=== PATIENT | female | born 2000 | race Caucasian/White ===

== ENCOUNTER 2022-05-22 16:54 | Emergency (ER) | payer OTHER, SELFPAY ==
[2022-05-22 17:09] VITALS: BP 132/81; PULSE 90; RESP 16; TEMP 36.7; O2SAT 98; BMI 23.0
--- NOTE | 2022-05-22 19:04 | ED.HEATRA ---
HPI - Head Injury <EDSON Machado Last Filed: 05/22/22 19:12> General Chief complaint: Head Injury Stated complaint: fell and hit head on cement Time Seen by Provider: 05/22/22 18:52 Source: patient Mode of arrival: Ambulatory History of Present Illness HPI Narrative: This is a 22-year-old female presents to the emergency department due to falling backwards and hitting the back of her head on the cement. Patient states that she did not lose consciousness but does state that she felt ?dazed? and was able to see but could hear everything. This happened approximately 5 hours ago. Patient states that ?the right side of my face felt funny?. Denies any slurred speech, unilateral weakness, nausea, vomiting, dizziness, or any other concerning signs or symptoms. Related Data Allergies Allergy/AdvReac Type Severity Reaction Status Date / Time cefprozil [From Cefzil] Allergy Verified 05/22/22 17:13 Review of Systems <Luis Pedro PA-C - Last Filed: 05/22/22 19:12> Review of Systems Narrative: GENERAL: Denies chills, fatigue, malaise, fever, sweats. HEENT: Reports head pain, Denies sinus pain, ear pain, sore throat, difficulty swallowing, dizziness. RESPIRATORY: Denies dyspnea, cough, wheezing, hemoptysis, sputum. CARDIOVASCULAR: Denies chest pain, palpitations, orthopnea, edema, GASTROINTESTINAL: Denies nausea, vomiting, abdominal pain, diarrhea, constipation, melena. : Denies dysuria, frequency, incontinence, hematuria, urinary retention. MUSCULOSKELETAL: denies weakness, joint pain, or bony pain SKIN: Denies rash, skin lesions, or other NEUROLOGIC: Denies weakness, headache, numbness, change in speech, confusion, seizures, incoordination. PSYCHIATRIC: No concerning psychosocial issues. 12 point review of systems is negative except for those stated above Patient History <EDSON Machado Last Filed: 05/22/22 19:12> Substance Use Type: does not use Exam <EDSNO Machado Last Filed: 05/22/22 19:12> Narrative Exam Narrative: GENERAL: Well-developed patient, in mild distress. HEAD: Atraumatic. Normocephalic. EYES: Pupils equal round and reactive. Extraocular motions intact. No scleral icterus. No injection or drainage. ENT: Nose without bleeding, purulent drainage. Throat without erythema, tonsillar hypertrophy or exudate. Airway patent. NECK: Trachea midline. Non tender CARDIOVASCULAR: Regular rate and rhythm without murmurs, gallops, or rubs. RESPIRATORY: Clear to auscultation. Breath sounds equal bilaterally. No wheezes, rales, or rhonchi. GASTROINTESTINAL: Abdomen soft, non-tender, nondistended. EXTREMITIES: No edema or joint tenderness. BACK: Nontender without deformity or crepitance. No flank tenderness. NEURO: AOx3. Cranial nerves 2-12 intact. No focal weakness noted. SKIN: No rash or erythema of visible areas Initial Vital Signs Initial Vital Signs: Vital Signs Temperature 98.0 F 05/22/22 17:09 Pulse Rate 90 05/22/22 17:09 Respiratory Rate 16 05/22/22 17:09 Blood Pressure 132/81 05/22/22 17:09 Pulse Oximetry 98 05/22/22 17:09 Oxygen Delivery Method 05/22/22 17:09 <DO Ariel Dan Last Filed: 05/23/22 08:59> Initial Vital Signs Initial Vital Signs: Vital Signs Temperature 98.0 F 05/22/22 17:09 Pulse Rate 90 05/22/22 17:09 Respiratory Rate 16 05/22/22 17:09 Blood Pressure 132/81 05/22/22 17:09 Pulse Oximetry 98 05/22/22 17:09 Oxygen Delivery Method 05/22/22 17:09 Course <EDSON Machado Last Filed: 05/22/22 19:12> Vital Signs Vital signs: Vital Signs - 8 hr 05/22/22 17:09 Temperature 98.0 F Pulse Rate 90 Respiratory Rate 16 Blood Pressure 132/81 Pulse Oximetry 98 Oxygen Delivery Method Room Air <DO Ariel Dan Last Filed: 05/23/22 08:59> Vital Signs Vital signs: Vital Signs - 8 hr 05/22/22 17:09 Temperature 98.0 F Pulse Rate 90 Respiratory Rate 16 Blood Pressure 132/81 Pulse Oximetry 98 Oxygen Delivery Method Room Air MDM - Head Injury <EDSON Machado Last Filed: 05/22/22 19:12> MDM Narrative Medical decision making narrative: This is a 22-year-old female presents to the emergency department due to a head injury with questionable loss of consciousness. Patient does not take any blood thinners and is otherwise healthy. Description of her symptoms were low concern for any kind of intracranial bleed and patient had a completely normal neuro exam. Shared decision making was utilized and no CT head will be ordered. Suspect patient may have a mild concussion and concussion instructions given. Discharge Plan Departure Patient Disposition: Home Clinical Impression: Concussion Instructions: Concussion, DI for Closed Head Injury Activity Restrictions/Additional Instructions: Thank you for coming to the [facility] Emergency Department today. Based on your exam I do not think that we need a head CT at this time due to the high amount of radiation. I suspect that you have a concussion which she should treat using instructions given to you. Please return to the emergency department if you begin to develop any blurred vision, weakness on 1 side, trouble speaking, hearing, or swallowing, repeated vomiting, seizures, or any other concerning signs or symptoms. I hope you feel better soon. Visit Report Forms: Patient Portal/API <Nayla Rajan DO - Last Filed: 05/23/22 08:59> Cosign ED Attending Coswesleyature Attestation: I was immediately available in the department for consultation. Documentation has been reviewed. I agree with assessment and plan.
== END 2022-05-22 19:21 | disposition home or self-care (01) ==
PROVIDERS: Emergency Provider Physician Assistant Medical
DX: S06.0X0A Concussion without loss of consciousness, initial encounter (principal); W18.30XA Fall on same level, unspecified, initial encounter
CPT/HCPCS: 99281

== ENCOUNTER → 2022-10-20 11:09 | Outpatient (CLI) | payer OTHER, SELFPAY ==
--- NOTE | 2022-10-20 | DI.US.S_ITS ---
PROCEDURE: US PELVIC COMPLETE INDICATIONS: ABNORMAL PELVIC BLEEDING TECHNIQUE: Real-time scanning was performed of the pelvic organs, with image documentation. Additional endovaginal scanning was necessary due to incomplete visualization of the adnexal and endometrial structures by transabdominal scanning. COMPARISON: None. FINDINGS: Uterus: Uterus is anteverted and normal in size at 5.8 x 3.2 x 2.8 cm. The myometrium is homogeneous. Possible increased myometrial vascularity on Doppler images. The endometrium measures 2 mm combined thickness. No focal endometrial lesion or abnormal endometrial vascularity identified. Ovaries: The right ovary measures 2.5 x 1.8 x 1.2 cm, with a calculated ovarian volume of 3 cc. The left ovary measures 2.9 x 2.1 x 1.0 cm, with a calculated ovarian volume of 3 cc. The ovaries have a unremarkable sonographic appearance. Less than 12 follicles can be seen in each ovary. No adnexal masses are seen. Other: No pathologic free abdominal or pelvic fluid. IMPRESSION: No focal endometrial lesion or abnormal endometrial vascularity identified. Possible increase in myometrial vascularity on Doppler images. This is a nonspecific finding, can be seen in the setting of adenomyosis. If there is clinical suspicion for adenomyosis MRI of the pelvis may be helpful for further evaluation. We strive to produce accurate, complete, and clear reports of imaging services. To assist us in improving patient care, this report was composed using standard report templates and voice recognition software. Therefore, it may contain abnormal punctuation, insertions and/or omissions. Occasional wrong-word or sound-alike substitutions may occur. Though we review the report and make efforts to correct it, we do recommend that the report be read carefully in proper context to recognize any text inaccuracies. Dictated by: Rivera Sauceda M.D. on 10/20/2022 at 14:10 Approved by: Rivera Sauceda M.D. on 10/20/2022 at 14:15
== END ==
PROVIDERS: Referring Provider Student in an Organized Health Care Education/Training Program; Visit Provider Student in an Organized Health Care Education/Training Program
DX: N93.9 Abnormal uterine and vaginal bleeding, unspecified (principal)
CPT/HCPCS: 76830; 76856

== ENCOUNTER 2024-01-12 09:45 | Outpatient (RCR) | payer OTHER, SELFPAY ==
--- NOTE | 2023-08-11 13:20 | PT.OIE ---
Current Diagnoses Muscle weakness (generalized) (08/11/23) Lower abdominal pain, unspecified (08/11/23) Unspecified urinary incontinence (08/11/23) Visit Care Team Role Provider Type Vanesa Philip MD Attending Provider Non-Staff Family Provider Primary Care Provider Referring Provider Specialty: Medical Address: [address] [place] [address], [id number] Email: Physical Therapy Initial Evaluation PT-OP-A Visit Information Start: 08/07/23 17:58 Freq: Status: Active Protocol: Document 08/11/23 08:21 LRN (Rec: 08/11/23 09:46 LRN [id number]) Out-Patient Physical Therapy Visit Information Visit Information Visit Type Initial Evaluation Visit Start Time 08:21 Visit Stop Time 09:16 Total Visit Minutes 66 Visit Number 1 Evaluation Information Evaluation Date 08/11/23 Precautions Precautions Back pain, Pelvic congestion history. PT-OP-B Current Condition Start: 08/07/23 17:58 Freq: Status: Active Protocol: Document 08/11/23 08:21 LRN (Rec: 08/11/23 09:46 LRN [id number]) Current Condition History of Current Condition Onset Date 06/2023 Current Complaints Urinary leakage if holding too long or doing light lifting mvmt, sneezing. History of Current Condition Sudden onset of urinary leakage, thought it was related to PF congestion, but was told there was no association. Pt has history of frequent UTI's until being given antibiotics as needed. She has not had UTI's with use of antibiotics. Pt states she is waiting for surgery at for her PF congestion. Orginally from [place], has spouse. Prior Treatments and Tests Dye test for reason for urinary tract infection (? intravenour pylegram) -2 yrs ago. Dye test for pelvic congestion (?venogram). Developmental History Developmental History Pt reports: Has pelvic congestion and is waiting for surgery; UTI's frequent 1x/month until started taking antibiotics, has not had infections. States infections after intercourse if not showering when camping. Treatment Goals Patient/Caregiver Goals Pt goal is: to be able to not have urgency , to not have urinary leakage with urgency to not have urinary leakage with lifting and sneezing. 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 PT-OP-C Subjective Start: 08/07/23 17:58 Freq: Status: Active Protocol: Document 08/11/23 08:21 LRN (Rec: 08/11/23 09:46 LRN [id number]) Patient Questionnaires Pelvic Pain and Urgency/Frequency Patient Symptom Scale Pelvic Pain Score 24 OP-PT Pain Assessment Pain Assessment Grid Paper Pain Assessment Grid Completed Yes Location L low back Pain Location Details L Low back at level of L4-L5. Intensity 5 Scale Used Numeric (0 - 10) Description Aching Description- Other Pain range 3-5/10 Lower Abdomen Pain Location Details Across lower abdomen Intensity 8 Scale Used Numeric (0 - 10) Description Sharp Description- Other Can't move pain. Frequency Intermittent PT-OP-I Pelvic Floor Start: 08/07/23 17:58 Freq: Status: Active Protocol: Document 08/11/23 08:21 LRN (Rec: 08/11/23 09:46 LRN [id number]) Pelvic Floor Assessment Urine Pelvic Floor Surgery No Urinary Symptoms Urge Sensation,Dribbling After Urination,Pain Other Urinary Symptoms Swelling and pain in PF when having pelvic congestion. Leakage Size Small Leakage Cause Lifting,Sneeze,Urge Leaks Per Day 3 Voiding Frequency every hour Nocturia No pads at night. 3-4x urinating at night. Pads Used In 24 Hours 3 Urine Pad Type Panty Liner Bowel Bowel Surgery No Bowel Movement Frequency daily Zuni Stool Chart Type 1-7 3 Prolapse Cystocele Grade 2 Contraction Ability Voluntary Contraction Weak Voluntary Relaxation Moderate Manual Muscle Testing Left 2 Manual Muscle Testing Right 3 Manual Muscle Testing Anterior 2 Manual Muscle Testing Posterior 3 Muscle Endurance (Seconds) 2 Number of Quick Contractions In 10 6 Seconds Comments Pelvic Floor Comments Very dry tissue. Mild redness of external perineum around vagina. PT-OP-J Posture/Palpation/Skin Start: 08/07/23 17:58 Freq: Status: Active Protocol: Document 08/11/23 08:21 LRN (Rec: 08/11/23 09:46 LRN [id number]) Posture Evaluation Position Standing Head/C-Spine Posture Neutral Position L-Spine Posture Increased Lordosis Shoulder Posture (L) Elevated Pelvis Posture Anteriorly Tilted Weight Distribution Balanced Knee Posture (L) Genu Valgus,(R) Genu Valgus Comments Posture Comments Decreased thoracic curvature. L PSIS is posterior. PT-OP-K Range of Motion Start: 08/07/23 17:58 Freq: Status: Active Protocol: Document 08/11/23 08:21 LRN (Rec: 08/11/23 09:46 LRN [id number]) Lumbar Spine Range of Motion Lumbar Spine Active Degrees Testing Position Standing Flexion 95 Extension 30 Rotation Left 40 Rotation Right 40 Lateral Flexion Left 27 Lateral Flexion Right 27 Comments Trunk AROM: Flexion is 95 deg ?s with 65 deg?s hip flexion, Trunk extension is 30 deg?s with 0 deg?s hip extension. Hip Goniometric Range of Motion Hip Right Passive Testing Position Supine Internal Rotation 60 External Rotation 45 Left Passive Testing Position Supine Internal Rotation 50 External Rotation 50 PT-OP-M Strength Start: 08/07/23 17:58 Freq: Status: Active Protocol: Document 08/11/23 08:21 LRN (Rec: 08/11/23 09:46 LRN [id number]) Trunk Strength Trunk Manual Muscle Testing Core Stabilization Pt is not able to maintain core stability with MMT of LE' s. Hip Strength Hip Manual Muscle Testing Right Flexion (L2) 5 Normal Extension (S1) 3 Fair Abduction 4- Good- Adduction 3 Fair External Rotation 3+ Fair+ Internal Rotation 4 Good Left Flexion (L2) 5 Normal Extension (S1) 3 Fair Abduction 3 Fair Adduction 3 Fair External Rotation 5 Normal Internal Rotation 5 Normal PT-OP-Q Treatments Start: 08/07/23 17:58 Freq: Status: Active Protocol: Document 08/11/23 08:21 LRN (Rec: 08/11/23 09:46 LRN [id number]) Self-Care/Home Management Treatment Education Other Education Discussed results of evaluation, goals, and plan of care (POC). Pt agreeable to goals and POC. Discussed and educated pt in specifics for completion of Bladder Diary and I/S in tracking for 1 week. Discussed use of 2 different diaries for tracking of bladder for next 7 days. Activities Self-Care/Home Management Activities Issued & reviewed HEP: Naomi ex's and discussed exercise of Quick Flicks, Long Holds and Aggravators. PT-OP-T Assessment and Plan Start: 08/07/23 17:58 Freq: Status: Active Protocol: Document 08/11/23 08:21 LRN (Rec: 08/11/23 09:46 LRN [id number]) Physical Therapy Assessment Rehab Potential Rehabilitation Potential Good Evaluation Complexity Number of Personal Factors/Comorbidities 1-2 Number of Body Systems Impaired 4 or More Clinical Presentation at Evaluation Evolving Impairments Impairments Activity Tolerance,Pain, Posture,ROM,Soft Tissue Mobility,Strength,Transfers Goals Decreased PF strength & endurance Impairment Decreased PF strength (2-3/5) and endurance (2 sec hold) Short Term Goal (STG) Improve PF strength to 3/5 STG Duration 6 wks- 09/21/23 Intermediate Goal (LTG) Improve PF endurance to hold 10 secs before fatigue LTG Duration 12 wks-11/09/23 Three Impairment Stress urinary incontinence with lifting and sneezing. Short Term Goal (STG) Pt will be educated in core pressure management with transfers, ADLs, and exercise. STG Duration 3 wks-09/01/23 Intermediate Goal (LTG) Pt will be able to maintain urinary continence with lifting and sneezing. LTG Duration 12 wks-11/09/23 Two Impairment Urge urinary incontinence in the presence of a strong urge. Short Term Goal (STG) Pt will be educated in urge deference technique, proper fluid management (including hydration level norms) and bladder irritants. STG Duration 2 wks-08/21/23 Intermediate Goal (LTG) Pt will be able to maintain urinary continence in the presence of a strong urge. LTG Duration 12 wks-11/09/23 One Impairment Pt lacks an independent self care HEP. Short Term Goal (STG) Pt will be educated in vulvar/ perineal care & proper posturing in sit/stand. STG Duration 4 wks-09/11/23 Intermediate Goal (LTG) Pt will be independent in a self care HEP for PF/hip strengthening, hip ROM. LTG Duration 12 wks-11/09/23 Assessment Summary Assessment Pt is a 23 yo female who presents with mixed urinary incontinence with abdominal pain and a history of pelvic congestion. PUF score of 24 indicates 91% likelihood of + PST and interstitial cystitis contributing to her urinary leakage. Pt has weakness of her PF, core (L>R), hips (L>R ), and asymmetry of mobility of her hips (tightness L hip). She has guarding of her core due to abdominal pain that is believed to be due to her pelvic congestion. The pt demonstrates poor tissue health of her perineum and would recommend further assessment with possible use of estrogen creme (recommend Estrace if appropriate) to improve perineal health and recommend PT for her abdominal pain due to pelvic congestion . The pt will benefit from skilled physical therapy to work towards achieving the above stated goals. Physical Therapy Plan Frequency and Duration Frequency of Treatment 1x/Week Duration of treatment (weeks) 12 Plan of Care Start Date 08/11/23 Plan of Care End Date 11/09/23 Therapeutic Interventions Therapeutic Interventions Home Exercise Program,Joint Mobilizations,Manual Therapy, Patient/Caregiver Education, Self-Care/Home Management,Soft Tissue Mobilization,Taping, Therapeutic Activities, Therapeutic Exercises Modalities Biofeedback,Electric Stimulation Other Referrals/Consults Referrals/Consults Recommended Assessment for PF dryness, possible use of estrogen creme (Estrace) and PT for abdominal pain. Next Visit Focus/Plan Next Note Type Treatment Note Next Visit Plan Next: Review bladder diary, pt education in bladder retraining with urge deference technique, Vemg PF assessment in absence of UTI.. Ther ex: proper Kegel without use of substitute muscles, PF , hip, strengthening. Education: Eduction of intra- abdominal pressure, proper deep breathing, and proper breathing with transfers and body mechanics. Vulvar and perineal care, different pads and usage (urine vs menstrual) . Manual therapy: lower abominal MFR POC: Pt education, Manual therapy. ? Biofeedback with vaginal sensor. Therapeutic Exercises, Therapeutic Activities, Neuromuscular Reeducation.
--- NOTE | 2023-08-21 16:32 | PT.OTN ---
Current Diagnoses Muscle weakness (generalized) (08/21/23) Lower abdominal pain, unspecified (08/21/23) Unspecified urinary incontinence (08/21/23) Physical Therapy Treatment Note PT-OP-A Visit Information Start: 08/07/23 17:58 Freq: Status: Active Protocol: Document 08/21/23 11:30 LRN (Rec: 08/21/23 12:44 LRN [id number]) Out-Patient Physical Therapy Visit Information Visit Information Visit Type Treatment Note Visit Start Time 11:30 Visit Stop Time 12:20 Total Visit Minutes 50 Visit Number 2 Evaluation Information Evaluation Date 08/11/23 Precautions Precautions Back pain, Pelvic congestion history. PT-OP-B Current Condition Start: 08/07/23 17:58 Freq: Status: Active Protocol: Document 08/11/23 08:21 LRN (Rec: 08/11/23 09:46 LRN [id number]) Current Condition History of Current Condition Onset Date 06/2023 Current Complaints Urinary leakage if holding too long or doing light lifting mvmt, sneezing. History of Current Condition Sudden onset of urinary leakage, thought it was related to PF congestion, but was told there was no association. Pt has history of frequent UTI's until being given antibiotics as needed. She has not had UTI's with use of antibiotics. Pt states she is waiting for surgery at for her PF congestion. Orginally from [place], has spouse. Prior Treatments and Tests Dye test for reason for urinary tract infection (? intravenour pylegram) -2 yrs ago. Dye test for pelvic congestion (?venogram). Developmental History Developmental History Pt reports: Has pelvic congestion and is waiting for surgery; UTI's frequent 1x/month until started taking antibiotics, has not had infections. States infections after intercourse if not showering when camping. Treatment Goals Patient/Caregiver Goals Pt goal is: to be able to not have urgency , to not have urinary leakage with urgency to not have urinary leakage with lifting and sneezing. 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 PT-OP-C Subjective Start: 08/07/23 17:58 Freq: Status: Active Protocol: Document 08/21/23 11:30 LRN (Rec: 08/21/23 12:44 LRN [id number]) OP-PT Subjective Patient Comments Patient Comments Pt wgt is 130# Had PCP put in for congestion sydrome. PT on 1st day of period; therefore abdominal pain that can cause her not to want to move. Lower abdominal pain is 8-9/10. PT-OP-I Pelvic Floor Start: 08/07/23 17:58 Freq: Status: Active Protocol: Document 08/11/23 08:21 LRN (Rec: 08/11/23 09:46 LRN [id number]) Pelvic Floor Assessment Urine Pelvic Floor Surgery No Urinary Symptoms Urge Sensation,Dribbling After Urination,Pain Other Urinary Symptoms Swelling and pain in PF when having pelvic congestion. Leakage Size Small Leakage Cause Lifting,Sneeze,Urge Leaks Per Day 3 Voiding Frequency every hour Nocturia No pads at night. 3-4x urinating at night. Pads Used In 24 Hours 3 Urine Pad Type Panty Liner Bowel Bowel Surgery No Bowel Movement Frequency daily [place] Stool Chart Type 1-7 3 Prolapse Cystocele Grade 2 Contraction Ability Voluntary Contraction Weak Voluntary Relaxation Moderate Manual Muscle Testing Left 2 Manual Muscle Testing Right 3 Manual Muscle Testing Anterior 2 Manual Muscle Testing Posterior 3 Muscle Endurance (Seconds) 2 Number of Quick Contractions In 10 6 Seconds Comments Pelvic Floor Comments Very dry tissue. Mild redness of external perineum around vagina. PT-OP-J Posture/Palpation/Skin Start: 08/07/23 17:58 Freq: Status: Active Protocol: Document 08/11/23 08:21 LRN (Rec: 08/11/23 09:46 LRN [id number]) Posture Evaluation Position Standing Head/C-Spine Posture Neutral Position L-Spine Posture Increased Lordosis Shoulder Posture (L) Elevated Pelvis Posture Anteriorly Tilted Weight Distribution Balanced Knee Posture (L) Genu Valgus,(R) Genu Valgus Comments Posture Comments Decreased thoracic curvature. L PSIS is posterior. PT-OP-K Range of Motion Start: 08/07/23 17:58 Freq: Status: Active Protocol: Document 08/11/23 08:21 LRN (Rec: 08/11/23 09:46 LRN [id number]) Lumbar Spine Range of Motion Lumbar Spine Active Degrees Testing Position Standing Flexion 95 Extension 30 Rotation Left 40 Rotation Right 40 Lateral Flexion Left 27 Lateral Flexion Right 27 Comments Trunk AROM: Flexion is 95 deg ?s with 65 deg?s hip flexion, Trunk extension is 30 deg?s with 0 deg?s hip extension. Hip Goniometric Range of Motion Hip Right Passive Testing Position Supine Internal Rotation 60 External Rotation 45 Left Passive Testing Position Supine Internal Rotation 50 External Rotation 50 PT-OP-M Strength Start: 08/07/23 17:58 Freq: Status: Active Protocol: Document 08/11/23 08:21 LRN (Rec: 08/11/23 09:46 LRN [id number]) Trunk Strength Trunk Manual Muscle Testing Core Stabilization Pt is not able to maintain core stability with MMT of LE' s. Hip Strength Hip Manual Muscle Testing Right Flexion (L2) 5 Normal Extension (S1) 3 Fair Abduction 4- Good- Adduction 3 Fair External Rotation 3+ Fair+ Internal Rotation 4 Good Left Flexion (L2) 5 Normal Extension (S1) 3 Fair Abduction 3 Fair Adduction 3 Fair External Rotation 5 Normal Internal Rotation 5 Normal PT-OP-Q Treatments Start: 08/07/23 17:58 Freq: Status: Active Protocol: Document 08/21/23 11:30 LRN (Rec: 08/21/23 12:44 LRN [id number]) Therapeutic Exercises Supine Exercises DB/LE roll in-out/PF Supine Exercise Name DB/LE roll in-out/PF Reps/Minutes 5' Comments Cuing Kegel to coordinate ex w /breath/roll in-outs. DB/LE roll -out Supine Exercise Name DB/LE roll in/out Reps/Minutes 3' Comments Cuing for coordinating mvmts ( breath in/abdomen out, knees out) Deep Breath (DB) Supine Exercise Name Deep Breath (6 sec breaths) Reps/Minutes 5' Comments Cuing for 6 sec breath & to still chest and move ribs/ abdomen Kegel-long hold Supine Exercise Name Kegel 50% effort - long hold on wedge and with Vemg Equipment Used Wedge Reps/Minutes 3 SH x 10 Kegel - quick Supine Exercise Name Kegel - quick on wedge and with Vemg Resistance Kegel @ 50% effort is just a little sharp pain. Equipment Used Wedge Reps/Minutes 10 x 3 Comments lower abdominal pain is more sharp with contraction Self-Care/Home Management Treatment Education Patient Education Home Exercise Program Other Education Reviewed Bladder dairy and discussed fluid intake (AM/PM and norm for hydration), bowel movement (normal), nighttime voiding frequency and mid day voiding frequency possibly habitual or due to Celcius drink. Pt education & discussion in Urinary urge technique. Discussed anatomy, mechanism, and preventative measures for cystocele. Activities Self-Care/Home Management Activities Issued & reviewed Bladder retraining (ie Urinary urge technique), bladder irritants. Issued & reviewed HEP: Deep Breathing, LE roll in-outs. PT-OP-T Assessment and Plan Start: 08/07/23 17:58 Freq: Status: Active Protocol: Document 08/21/23 11:30 LRN (Rec: 08/21/23 12:44 LRN [id number]) Physical Therapy Assessment Goals Decreased PF strength & endurance Impairment Decreased PF strength (2-3/5) and endurance (2 sec hold) Short Term Goal (STG) Improve PF strength to 3/5 STG Duration 6 wks- 09/21/23 Mcc Goal (LTG) Improve PF endurance to hold 10 secs before fatigue LTG Duration 12 wks-11/09/23 Three Impairment Stress urinary incontinence with lifting and sneezing. Short Term Goal (STG) Pt will be educated in core pressure management with transfers, ADLs, and exercise. STG Duration 3 wks-09/01/23 Health Diagnostics Teacher Goal (LTG) Pt will be able to maintain urinary continence with lifting and sneezing. LTG Duration 12 wks-11/09/23 Two Impairment Urge urinary incontinence in the presence of a strong urge. Short Term Goal (STG) Pt will be educated in urge deference technique, proper fluid management (including hydration level norms) and bladder irritants. STG Duration 2 wks-08/21/23 (08/21/23: MET GOAL) Mcc Goal (LTG) Pt will be able to maintain urinary continence in the presence of a strong urge. LTG Duration 12 wks-11/09/23 One Impairment Pt lacks an independent self care HEP. Short Term Goal (STG) Pt will be educated in vulvar/ perineal care & proper posturing in sit/stand. STG Duration 4 wks-09/11/23 Mcc Goal (LTG) Pt will be independent in a self care HEP for PF/hip strengthening, hip ROM. 08/21/23: HEP: Deep breathing, LE roll in/outs w/ breath/Kege, progressing to add one component at a timel. LTG Duration 12 wks-04/08/24 progressing 08/21/23 Assessment Summary Assessment 23 yo female who presents with mixed urinary incontinence with abdominal pain and a history of pelvic congestion. Cystocele grade 2. Abdominal pain is sharp with PF contractions; therefore strengthening is limitied. Less pelvic pain with Kegel if deep breathing & LE's roll in -outs. Not able to assess PF via Vemg due to pt period starting. Per blader diary the pt is drinking too much water thru the night and with Celcius drinking show increased urination frequency. Urinary leakage mostly appears to be when bladder is maximally full or with compression on the bladder ( bending forward). Behavioural changes may be helpful to eliminate leakage. Physical Therapy Plan Frequency and Duration Frequency of Treatment 1x/Week Duration of treatment (weeks) 12 Plan of Care Start Date 08/11/23 Plan of Care End Date 11/09/23 Next Visit Focus/Plan Next Note Type Treatment Note Next Visit Plan Next: Vemg PF assessment in absence of UTI. Ther ex: proper Kegel without use of substitute muscles, PF , hip, strengthening. Education: Education of intra -abdominal pressure, breathing with transfers and body mechanics. Vulvar and perineal care, different pads and usage (urine vs menstrual) . Manual therapy: lower abominal MFR POC: Pt education, Manual therapy. ? Biofeedback with vaginal sensor. Therapeutic Exercises, Therapeutic Activities, Neuromuscular Reeducation.
--- NOTE | 2023-08-27 17:58 | PT.OTN ---
Current Diagnoses Muscle weakness (generalized) (08/27/23) Lower abdominal pain, unspecified (08/27/23) Unspecified urinary incontinence (08/27/23) Physical Therapy Treatment Note PT-OP-A Visit Information Start: 08/07/23 17:58 Freq: Status: Active Protocol: Document 08/27/23 13:02 LRN (Rec: 08/27/23 13:47 LRN [id number]) Out-Patient Physical Therapy Visit Information Visit Information Visit Type Treatment Note Visit Start Time 13:02 Visit Stop Time 13:44 Visit Number 3 Evaluation Information Evaluation Date 08/11/23 Precautions Precautions Back pain, Pelvic congestion history. PT-OP-B Current Condition Start: 08/07/23 17:58 Freq: Status: Active Protocol: Document 08/11/23 08:21 LRN (Rec: 08/11/23 09:46 LRN [id number]) Current Condition History of Current Condition Onset Date 06/2023 Current Complaints Urinary leakage if holding too long or doing light lifting mvmt, sneezing. History of Current Condition Sudden onset of urinary leakage, thought it was related to PF congestion, but was told there was no association. Pt has history of frequent UTI's until being given antibiotics as needed. She has not had UTI's with use of antibiotics. Pt states she is waiting for surgery at for her PF congestion. Orginally from [place], has spouse. Prior Treatments and Tests Dye test for reason for urinary tract infection (? intravenour pylegram) -2 yrs ago. Dye test for pelvic congestion (?venogram). Developmental History Developmental History Pt reports: Has pelvic congestion and is waiting for surgery; UTI's frequent 1x/month until started taking antibiotics, has not had infections. States infections after intercourse if not showering when camping. Treatment Goals Patient/Caregiver Goals Pt goal is: to be able to not have urgency , to not have urinary leakage with urgency to not have urinary leakage with lifting and sneezing. 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 PT-OP-C Subjective Start: 08/07/23 17:58 Freq: Status: Active Protocol: Document 08/27/23 13:02 LRN (Rec: 08/27/23 13:47 LRN [id number]) OP-PT Subjective Patient Comments Patient Comments Still spotting from period. Having off/on pain in lower abdomen. Had venogram a couple days ago to check blood vessels in pelvic region. Will find out results 09/02/23 . Urge deference technique helped 1/2 times. PT-OP-I Pelvic Floor Start: 08/07/23 17:58 Freq: Status: Active Protocol: Document 08/11/23 08:21 LRN (Rec: 08/11/23 09:46 LRN [id number]) Pelvic Floor Assessment Urine Pelvic Floor Surgery No Urinary Symptoms Urge Sensation,Dribbling After Urination,Pain Other Urinary Symptoms Swelling and pain in PF when having pelvic congestion. Leakage Size Small Leakage Cause Lifting,Sneeze,Urge Leaks Per Day 3 Voiding Frequency every hour Nocturia No pads at night. 3-4x urinating at night. Pads Used In 24 Hours 3 Urine Pad Type Panty Liner Bowel Bowel Surgery No Bowel Movement Frequency daily [place] Stool Chart Type 1-7 3 Prolapse Cystocele Grade 2 Contraction Ability Voluntary Contraction Weak Voluntary Relaxation Moderate Manual Muscle Testing Left 2 Manual Muscle Testing Right 3 Manual Muscle Testing Anterior 2 Manual Muscle Testing Posterior 3 Muscle Endurance (Seconds) 2 Number of Quick Contractions In 10 6 Seconds Comments Pelvic Floor Comments Very dry tissue. Mild redness of external perineum around vagina. PT-OP-J Posture/Palpation/Skin Start: 08/07/23 17:58 Freq: Status: Active Protocol: Document 08/11/23 08:21 LRN (Rec: 08/11/23 09:46 LRN [id number]) Posture Evaluation Position Standing Head/C-Spine Posture Neutral Position L-Spine Posture Increased Lordosis Shoulder Posture (L) Elevated Pelvis Posture Anteriorly Tilted Weight Distribution Balanced Knee Posture (L) Genu Valgus,(R) Genu Valgus Comments Posture Comments Decreased thoracic curvature. L PSIS is posterior. PT-OP-K Range of Motion Start: 08/07/23 17:58 Freq: Status: Active Protocol: Document 08/11/23 08:21 LRN (Rec: 08/11/23 09:46 LRN [id number]) Lumbar Spine Range of Motion Lumbar Spine Active Degrees Testing Position Standing Flexion 95 Extension 30 Rotation Left 40 Rotation Right 40 Lateral Flexion Left 27 Lateral Flexion Right 27 Comments Trunk AROM: Flexion is 95 deg ?s with 65 deg?s hip flexion, Trunk extension is 30 deg?s with 0 deg?s hip extension. Hip Goniometric Range of Motion Hip Right Passive Testing Position Supine Internal Rotation 60 External Rotation 45 Left Passive Testing Position Supine Internal Rotation 50 External Rotation 50 PT-OP-M Strength Start: 08/07/23 17:58 Freq: Status: Active Protocol: Document 08/11/23 08:21 LRN (Rec: 08/11/23 09:46 LRN [id number]) Trunk Strength Trunk Manual Muscle Testing Core Stabilization Pt is not able to maintain core stability with MMT of LE' s. Hip Strength Hip Manual Muscle Testing Right Flexion (L2) 5 Normal Extension (S1) 3 Fair Abduction 4- Good- Adduction 3 Fair External Rotation 3+ Fair+ Internal Rotation 4 Good Left Flexion (L2) 5 Normal Extension (S1) 3 Fair Abduction 3 Fair Adduction 3 Fair External Rotation 5 Normal Internal Rotation 5 Normal PT-OP-Q Treatments Start: 08/07/23 17:58 Freq: Status: Active Protocol: Document 08/27/23 13:02 LRN (Rec: 08/27/23 13:47 LRN [id number]) Therapeutic Exercises Supine Exercises Happy Baby pose Supine Exercise Name Happy Baby Pose Reps/Minutes 3' Comments Cuing for hand placement and breath through exer hold, stretch in ant abdom DB/Kegel Supine Exercise Name DB/Kegel Reps/Minutes 3 DB/LE roll in-out/PF Supine Exercise Name DB/LE roll in-out/PF Reps/Minutes 18' Comments Much cuing needed for Kegel w/ breath in/roll outs. Pt not able to coord Other Exercises Transfers coordinating breath Other Exercise Name Transfer training sit<>stand<> sit<>sup coordinating breathwork Reps/Minutes 14' Comments Cuing throughout transfers and extra time for education of mvmt w/breath Self-Care/Home Management Treatment Education Patient Education Body Mechanics,Home Exercise Program Other Education Discussed and educated pt in log roll transfer and sit<> stand coordinating breathwork. Activities Self-Care/Home Management Activities Handout issued for transfer w/ coordinating breath/PF contraction. HEP issued: Happy Baby Pose & Deep Breathing. PT-OP-T Assessment and Plan Start: 08/07/23 17:58 Freq: Status: Active Protocol: Document 08/27/23 13:02 LRN (Rec: 08/27/23 13:47 LRN [id number]) Physical Therapy Assessment Goals Decreased PF strength & endurance Impairment Decreased PF strength (2-3/5) and endurance (2 sec hold) Short Term Goal (STG) Improve PF strength to 3/5 STG Duration 6 wks- 09/21/23 Physical Medicine Specialist Goal (LTG) Improve PF endurance to hold 10 secs before fatigue LTG Duration 12 wks-11/09/23 Three Impairment Stress urinary incontinence with lifting and sneezing. Short Term Goal (STG) Pt will be educated in core pressure management with transfers, ADLs, and exercise. Pt educated in core pressure management w/transfers. STG Duration 3 wks-09/01/23 progressed (need core pressure mgmt w/ADLs & ex) Longterm Goal (LTG) Pt will be able to maintain urinary continence with lifting and sneezing. LTG Duration 12 wks-11/09/23 Two Impairment Urge urinary incontinence in the presence of a strong urge. Short Term Goal (STG) Pt will be educated in urge deference technique, proper fluid management (including hydration level norms) and bladder irritants. STG Duration 2 wks-08/21/23 (08/21/23: MET GOAL) Physical Medicine Specialist Goal (LTG) Pt will be able to maintain urinary continence in the presence of a strong urge. LTG Duration 12 wks-11/09/23 One Impairment Pt lacks an independent self care HEP. Short Term Goal (STG) Pt will be educated in vulvar/ perineal care & proper posturing in sit/stand. STG Duration 4 wks-09/11/23 Physical Medicine Specialist Goal (LTG) Pt will be independent in a self care HEP for PF/hip strengthening, hip ROM. 08/21/23: HEP: Deep breathing, LE roll in/outs w/ breath/Kege, progressing to add one component at a timel. 08/27/23: HEP: Deep Breathing, Happy Baby Pose. Handout issued for transfers w /breath/PF. LTG Duration 12 wks-11/09/23 progressed 08/27/23 Assessment Summary Assessment 23 yo female who presents with mixed urinary incontinence with abdominal pain and a history of pelvic congestion. Cystocele grade 2 and sharp abdominal pain with PF contractions. Pt was not able to coordinate Kegel with in breath and LE roll outs, further tranining needed. Pt not able to do Vemg assessment due to still on period. Physical Therapy Plan Frequency and Duration Frequency of Treatment 1x/Week Duration of treatment (weeks) 12 Plan of Care Start Date 08/11/23 Plan of Care End Date 11/09/23 Next Visit Focus/Plan Next Note Type Treatment Note Next Visit Plan Next: Vemg PF assessment in absence of UTI. Ther ex: proper Kegel without use of substitute muscles, PF , hip, strengthening. Education: Education of intra -abdominal pressure, breathing with transfers and body mechanics. Vulvar and perineal care, different pads and usage (urine vs menstrual) . Manual therapy: lower abominal MFR POC: Pt education, Manual therapy. ? Biofeedback with vaginal sensor. Therapeutic Exercises, Therapeutic Activities, Neuromuscular Reeducation.
--- NOTE | 2023-09-03 15:53 | PT.OTN ---
Current Diagnoses Muscle weakness (generalized) (09/03/23) Lower abdominal pain, unspecified (09/03/23) Unspecified urinary incontinence (09/03/23) Physical Therapy Treatment Note PT-OP-A Visit Information Start: 08/07/23 17:58 Freq: Status: Active Protocol: Document 09/03/23 13:03 LRN (Rec: 09/03/23 13:47 LRN [id number]) Out-Patient Physical Therapy Visit Information Visit Information Visit Type Treatment Note Visit Start Time 13:03 Visit Stop Time 13:44 Visit Number 4 Evaluation Information Evaluation Date 08/11/23 Precautions Precautions Back pain, Pelvic congestion history. PT-OP-B Current Condition Start: 08/07/23 17:58 Freq: Status: Active Protocol: Document 08/11/23 08:21 LRN (Rec: 08/11/23 09:46 LRN [id number]) Current Condition History of Current Condition Onset Date 06/2023 Current Complaints Urinary leakage if holding too long or doing light lifting mvmt, sneezing. History of Current Condition Sudden onset of urinary leakage, thought it was related to PF congestion, but was told there was no association. Pt has history of frequent UTI's until being given antibiotics as needed. She has not had UTI's with use of antibiotics. Pt states she is waiting for surgery at for her PF congestion. Orginally from [place], has spouse. Prior Treatments and Tests Dye test for reason for urinary tract infection (? intravenour pylegram) -2 yrs ago. Dye test for pelvic congestion (?venogram). Developmental History Developmental History Pt reports: Has pelvic congestion and is waiting for surgery; UTI's frequent 1x/month until started taking antibiotics, has not had infections. States infections after intercourse if not showering when camping. Treatment Goals Patient/Caregiver Goals Pt goal is: to be able to not have urgency , to not have urinary leakage with urgency to not have urinary leakage with lifting and sneezing. 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 PT-OP-C Subjective Start: 08/07/23 17:58 Freq: Status: Active Protocol: Document 09/03/23 13:03 LRN (Rec: 09/03/23 13:47 LRN [id number]) OP-PT Subjective Patient Comments Patient Comments Has had different pain on the same side, but was higher on the back still the low back. 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 They plan to put coils in veins before she has vein moving surgery and stent in the other 2 locations. PT-OP-I Pelvic Floor Start: 08/07/23 17:58 Freq: Status: Active Protocol: Document 09/03/23 13:03 LRN (Rec: 09/03/23 13:47 LRN [id number]) Pelvic Floor Assessment SEMG (uV) Baseline 2.1 Quick Contraction 4.8 10 Second Contraction 5.6 Recruitment Pattern Good Relaxation Fair Stability of Hold Fair SEMG Stability of Rest Fair Comments Pelvic Floor Comments Pt hooklie with bolster under legs and arms by sides. Quick Flicks: Strength ~ 8 reps before decreasing or being inconsistent with strength. 10 reps strength (uV's): avg work 4.8, avg rest 2.5. 20 reps strength (uV's): avg work 4.9, avg rest 2.5. Long Holds: 10 reps strength (uV's): avg work 5.6, avg rest 2.6. 20 reps strength (uV's): avg work 5.6, avg rest 2.7. PT-OP-J Posture/Palpation/Skin Start: 08/07/23 17:58 Freq: Status: Active Protocol: Document 08/11/23 08:21 LRN (Rec: 08/11/23 09:46 LRN [id number]) Posture Evaluation Position Standing Head/C-Spine Posture Neutral Position L-Spine Posture Increased Lordosis Shoulder Posture (L) Elevated Pelvis Posture Anteriorly Tilted Weight Distribution Balanced Knee Posture (L) Genu Valgus,(R) Genu Valgus Comments Posture Comments Decreased thoracic curvature. L PSIS is posterior. PT-OP-K Range of Motion Start: 08/07/23 17:58 Freq: Status: Active Protocol: Document 08/11/23 08:21 LRN (Rec: 08/11/23 09:46 LRN [id number]) Lumbar Spine Range of Motion Lumbar Spine Active Degrees Testing Position Standing Flexion 95 Extension 30 Rotation Left 40 Rotation Right 40 Lateral Flexion Left 27 Lateral Flexion Right 27 Comments Trunk AROM: Flexion is 95 deg ?s with 65 deg?s hip flexion, Trunk extension is 30 deg?s with 0 deg?s hip extension. Hip Goniometric Range of Motion Hip Right Passive Testing Position Supine Internal Rotation 60 External Rotation 45 Left Passive Testing Position Supine Internal Rotation 50 External Rotation 50 PT-OP-M Strength Start: 08/07/23 17:58 Freq: Status: Active Protocol: Document 08/11/23 08:21 LRN (Rec: 08/11/23 09:46 LRN [id number]) Trunk Strength Trunk Manual Muscle Testing Core Stabilization Pt is not able to maintain core stability with MMT of LE' s. Hip Strength Hip Manual Muscle Testing Right Flexion (L2) 5 Normal Extension (S1) 3 Fair Abduction 4- Good- Adduction 3 Fair External Rotation 3+ Fair+ Internal Rotation 4 Good Left Flexion (L2) 5 Normal Extension (S1) 3 Fair Abduction 3 Fair Adduction 3 Fair External Rotation 5 Normal Internal Rotation 5 Normal PT-OP-Q Treatments Start: 08/07/23 17:58 Freq: Status: Active Protocol: Document 09/03/23 13:03 LRN (Rec: 09/03/23 13:47 LRN [id number]) Therapeutic Exercises Supine Exercises Happy Baby pose Supine Exercise Name Happy Baby Pose Reps/Minutes 3' Comments Cuing for hand placement and breath through exer hold, stretch in ant abdom Kegel-long hold Supine Exercise Name Kegel 50% effort - long hold on wedge and with Vemg Reps/Minutes 3 SH x 10 Comments Vemg - see PF section Kegel - quick Supine Exercise Name Kegel - quick on wedge and with Vemg Resistance Kegel @ 50% effort is just a little sharp pain. Reps/Minutes 10 x 3 Comments Vemg - see PF section PT-OP-T Assessment and Plan Start: 08/07/23 17:58 Freq: Status: Active Protocol: Document 09/03/23 13:03 LRN (Rec: 09/03/23 13:47 LRN [id number]) Physical Therapy Assessment Goals Decreased PF strength & endurance Impairment Decreased PF strength (2-3/5) and endurance (2 sec hold) Short Term Goal (STG) Improve PF strength to 3/5 STG Duration 6 wks- 09/21/23 Leather Splitter Goal (LTG) Improve PF endurance to hold 10 secs before fatigue LTG Duration 12 wks-11/09/23 Three Impairment Stress urinary incontinence with lifting and sneezing. Short Term Goal (STG) Pt will be educated in core pressure management with transfers, ADLs, and exercise. 08/27/23: Pt educated in core pressure management w/ transfers. 09/03/23: Pt educated in core pressure management with ADLs, and exercise. STG Duration 3 wks-09/01/23 (09/03/23: MET GOAL) Alf Goal (LTG) Pt will be able to maintain urinary continence with lifting and sneezing. LTG Duration 12 wks-11/09/23 Two Impairment Urge urinary incontinence in the presence of a strong urge. Short Term Goal (STG) Pt will be educated in urge deference technique, proper fluid management (including hydration level norms) and bladder irritants. STG Duration 2 wks-08/21/23 (08/21/23: MET GOAL) Alf Goal (LTG) Pt will be able to maintain urinary continence in the presence of a strong urge. 09/03/23: At work is leaking, at home able to use delay technique to prevent urinary leakage. LTG Duration 12 wks-11/09/23 progressed 09/03/23 One Impairment Pt lacks an independent self care HEP. Short Term Goal (STG) Pt will be educated in vulvar/ perineal care & proper posturing in sit/stand. STG Duration 4 wks-09/11/23 Leather Splitter Goal (LTG) Pt will be independent in a self care HEP for PF/hip strengthening, hip ROM. 08/21/23: HEP: Deep breathing, LE roll in/outs w/ breath/Kege, progressing to add one component at a timel. 08/27/23: HEP: Deep Breathing, Happy Baby Pose. Handout issued for transfers w /breath/PF. LTG Duration 12 wks-11/09/23 progressed 08/27/23 Assessment Summary Assessment 23 yo female who presents with mixed urinary incontinence with abdominal pain and a history of pelvic congestion. 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 Pt reports plan is to have coil implanted in one vein to improve blood flow before doing a bypass surgery on the other 2 veins. Per Vemg PF, Quick Flicks: Strength ~ 8 reps before decreasing or being inconsistent with strength (strength 4.8 mV's). Long holds: strength is ~5.6 mV's. Pt feels she is having a hard time holding a contraction, but demonstrates fairly good hold and fair release for rest. Pt able to isolate her PF contraction and when cued to avoid breath holding. Physical Therapy Plan Frequency and Duration Frequency of Treatment 1x/Week Duration of treatment (weeks) 12 Plan of Care Start Date 08/11/23 Plan of Care End Date 11/09/23 Next Visit Focus/Plan Next Note Type Treatment Note Next Visit Plan Next: Manual therapy: lower abominal MFR. E-Stim for relaxation. Neuro thao for PF relaxation. Ther ex: proper Kegel without use of substitute muscles, PF , hip, strengthening. Education: Vulvar and perineal care, different pads and usage (urine vs menstrual) . POC: Pt education, Manual therapy. ? Biofeedback with vaginal sensor. Therapeutic Exercises, Therapeutic Activities, Neuromuscular Reeducation.
--- NOTE | 2023-09-10 14:04 | PT.OTN ---
Current Diagnoses Muscle weakness (generalized) (09/10/23) Lower abdominal pain, unspecified (09/10/23) Unspecified urinary incontinence (09/10/23) Physical Therapy Treatment Note PT-OP-A Visit Information Start: 08/07/23 17:58 Freq: Status: Active Protocol: Document 09/10/23 13:01 LRN (Rec: 09/10/23 13:46 LRN [id number]) Out-Patient Physical Therapy Visit Information Visit Information Visit Type Treatment Note Visit Start Time 13:01 Visit Stop Time 13:43 Visit Number 5 Evaluation Information Evaluation Date 08/11/23 Precautions Precautions Back pain, Pelvic congestion history. PT-OP-B Current Condition Start: 08/07/23 17:58 Freq: Status: Active Protocol: Document 08/11/23 08:21 LRN (Rec: 08/11/23 09:46 LRN [id number]) Current Condition History of Current Condition Onset Date 06/2023 Current Complaints Urinary leakage if holding too long or doing light lifting mvmt, sneezing. History of Current Condition Sudden onset of urinary leakage, thought it was related to PF congestion, but was told there was no association. Pt has history of frequent UTI's until being given antibiotics as needed. She has not had UTI's with use of antibiotics. Pt states she is waiting for surgery at for her PF congestion. Orginally from [place], has spouse. Prior Treatments and Tests Dye test for reason for urinary tract infection (? intravenour pylegram) -2 yrs ago. Dye test for pelvic congestion (?venogram). Developmental History Developmental History Pt reports: Has pelvic congestion and is waiting for surgery; UTI's frequent 1x/month until started taking antibiotics, has not had infections. States infections after intercourse if not showering when camping. Treatment Goals Patient/Caregiver Goals Pt goal is: to be able to not have urgency , to not have urinary leakage with urgency to not have urinary leakage with lifting and sneezing. 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 PT-OP-C Subjective Start: 08/07/23 17:58 Freq: Status: Active Protocol: Document 09/10/23 13:01 LRN (Rec: 09/10/23 13:46 LRN [id number]) OP-PT Subjective Patient Comments Patient Comments The higher back pain went away . Sometimes after a day at work, has sharp pain with PF contractions, more than at the first of the day (/). PT-OP-I Pelvic Floor Start: 08/07/23 17:58 Freq: Status: Active Protocol: Document 09/03/23 13:03 LRN (Rec: 09/03/23 13:47 LRN [id number]) Pelvic Floor Assessment SEMG (uV) Baseline 2.1 Quick Contraction 4.8 10 Second Contraction 5.6 Recruitment Pattern Good Relaxation Fair Stability of Hold Fair SEMG Stability of Rest Fair Comments Pelvic Floor Comments Pt hooklie with bolster under legs and arms by sides. Quick Flicks: Strength ~ 8 reps before decreasing or being inconsistent with strength. 10 reps strength (uV's): avg work 4.8, avg rest 2.5. 20 reps strength (uV's): avg work 4.9, avg rest 2.5. Long Holds: 10 reps strength (uV's): avg work 5.6, avg rest 2.6. 20 reps strength (uV's): avg work 5.6, avg rest 2.7. PT-OP-J Posture/Palpation/Skin Start: 08/07/23 17:58 Freq: Status: Active Protocol: Document 08/11/23 08:21 LRN (Rec: 08/11/23 09:46 LRN [id number]) Posture Evaluation Position Standing Head/C-Spine Posture Neutral Position L-Spine Posture Increased Lordosis Shoulder Posture (L) Elevated Pelvis Posture Anteriorly Tilted Weight Distribution Balanced Knee Posture (L) Genu Valgus,(R) Genu Valgus Comments Posture Comments Decreased thoracic curvature. L PSIS is posterior. PT-OP-K Range of Motion Start: 08/07/23 17:58 Freq: Status: Active Protocol: Document 08/11/23 08:21 LRN (Rec: 08/11/23 09:46 LRN [id number]) Lumbar Spine Range of Motion Lumbar Spine Active Degrees Testing Position Standing Flexion 95 Extension 30 Rotation Left 40 Rotation Right 40 Lateral Flexion Left 27 Lateral Flexion Right 27 Comments Trunk AROM: Flexion is 95 deg ?s with 65 deg?s hip flexion, Trunk extension is 30 deg?s with 0 deg?s hip extension. Hip Goniometric Range of Motion Hip Right Passive Testing Position Supine Internal Rotation 60 External Rotation 45 Left Passive Testing Position Supine Internal Rotation 50 External Rotation 50 PT-OP-M Strength Start: 08/07/23 17:58 Freq: Status: Active Protocol: Document 08/11/23 08:21 LRN (Rec: 08/11/23 09:46 LRN [id number]) Trunk Strength Trunk Manual Muscle Testing Core Stabilization Pt is not able to maintain core stability with MMT of LE' s. Hip Strength Hip Manual Muscle Testing Right Flexion (L2) 5 Normal Extension (S1) 3 Fair Abduction 4- Good- Adduction 3 Fair External Rotation 3+ Fair+ Internal Rotation 4 Good Left Flexion (L2) 5 Normal Extension (S1) 3 Fair Abduction 3 Fair Adduction 3 Fair External Rotation 5 Normal Internal Rotation 5 Normal PT-OP-Q Treatments Start: 08/07/23 17:58 Freq: Status: Active Protocol: Document 09/10/23 13:01 LRN (Rec: 09/10/23 13:46 LRN [id number]) Therapeutic Exercises Supine Exercises Happy Baby pose Supine Exercise Name Happy Baby Pose Reps/Minutes 4' Comments Cuing for hand placement and breath through exer hold, stretch in ant abdom Other Exercises Back stretch Other Exercise Name Child's Pose Reps/Minutes 4' Manual Therapy Treatment Soft Tissue Mobilization Abdomen Body Location Abdomen distraction w/MFR in all directions Mobilization Type Manual Lymphatic Drainage, Sustained Pressure Intensity/Depth Moderate Body Position Standing bent over Low Back Body Location Low Back in Child's pose Mobilization Type Strumming Body Position Child's Pose Comments Tight in R LB>LLB Neuro Re-Education Treatment Other Activities Vemg for ms relaxation Details Vemg stim 5', with 4' to don/ doff electrode Reps/Duration 5' Comments Continuous 200 pps Intensity 10 PT-OP-T Assessment and Plan Start: 08/07/23 17:58 Freq: Status: Active Protocol: Document 09/10/23 13:01 LRN (Rec: 09/10/23 13:46 LRN [id number]) Physical Therapy Assessment Goals Decreased PF strength & endurance Impairment Decreased PF strength (2-3/5) and endurance (2 sec hold) Short Term Goal (STG) Improve PF strength to 3/5 STG Duration 6 wks- 09/21/23 Jail Goal (LTG) Improve PF endurance to hold 10 secs before fatigue LTG Duration 12 wks-11/09/23 Three Impairment Stress urinary incontinence with lifting and sneezing. Short Term Goal (STG) Pt will be educated in core pressure management with transfers, ADLs, and exercise. 08/27/23: Pt educated in core pressure management w/ transfers. 09/03/23: Pt educated in core pressure management with ADLs, and exercise. STG Duration 3 wks-09/01/23 (09/03/23: MET GOAL) Warehouse Order Picker Goal (LTG) Pt will be able to maintain urinary continence with lifting and sneezing. LTG Duration 12 wks-11/09/23 Two Impairment Urge urinary incontinence in the presence of a strong urge. Short Term Goal (STG) Pt will be educated in urge deference technique, proper fluid management (including hydration level norms) and bladder irritants. STG Duration 2 wks-08/21/23 (08/21/23: MET GOAL) Jail Goal (LTG) Pt will be able to maintain urinary continence in the presence of a strong urge. 09/03/23: At work is leaking, at home able to use delay technique to prevent urinary leakage. LTG Duration 12 wks-11/09/23 progressed 09/03/23 One Impairment Pt lacks an independent self care HEP. Short Term Goal (STG) Pt will be educated in vulvar/ perineal care & proper posturing in sit/stand. STG Duration 4 wks-09/11/23 Jail Goal (LTG) Pt will be independent in a self care HEP for PF/hip strengthening, hip ROM. 08/21/23: HEP: Deep breathing, LE roll in/outs w/ breath/Kege, progressing to add one component at a timel. 08/27/23: HEP: Deep Breathing, Happy Baby Pose. Handout issued for transfers w /breath/PF. LTG Duration 12 wks-11/09/23 progressed 08/27/23 Assessment Summary Assessment 23 yo female who presents with mixed urinary incontinence with abdominal pain and a history of pelvic congestion. Cystocele grade 2 and sharp abdominal pain with PF contractions. She has decreased blood flow at the L common iliac v. that could be cause of pelvic congestion. Pt is tight in LB and abdomen probably creating intra- abdominal pressure. Pt had + response to EStim and asked regarding purchasing of a unit . Physical Therapy Plan Frequency and Duration Frequency of Treatment 1x/Week Duration of treatment (weeks) 12 Plan of Care Start Date 08/11/23 Plan of Care End Date 11/09/23 Next Visit Focus/Plan Next Note Type Treatment Note Next Visit Plan Next: Manual therapy: lower abominal MFR, ?kidney mob. Assess response to E-Stim for relaxation. Neuro thao for PF relaxation. Ther ex: proper Kegel without use of substitute muscles, PF /hip strengthening. Education: Vulvar and perineal care, different pads and usage (urine vs menstrual) . POC: Pt education, Manual therapy. ? Biofeedback with vaginal sensor. Therapeutic Exercises, Therapeutic Activities, Neuromuscular Reeducation.
--- NOTE | 2023-09-17 14:13 | PT.OTN ---
Current Diagnoses Muscle weakness (generalized) (09/17/23) Lower abdominal pain, unspecified (09/17/23) Unspecified urinary incontinence (09/17/23) Physical Therapy Treatment Note PT-OP-A Visit Information Start: 08/07/23 17:58 Freq: Status: Active Protocol: Document 09/17/23 13:00 LRN (Rec: 09/17/23 14:11 LRN [id number]) Out-Patient Physical Therapy Visit Information Visit Information Visit Type Treatment Note Visit Start Time 13:00 Visit Stop Time 13:51 Visit Number 6 Evaluation Information Evaluation Date 08/11/23 Precautions Precautions Back pain, Pelvic congestion history. PT-OP-B Current Condition Start: 08/07/23 17:58 Freq: Status: Active Protocol: Document 08/11/23 08:21 LRN (Rec: 08/11/23 09:46 LRN [id number]) Current Condition History of Current Condition Onset Date 06/2023 Current Complaints Urinary leakage if holding too long or doing light lifting mvmt, sneezing. History of Current Condition Sudden onset of urinary leakage, thought it was related to PF congestion, but was told there was no association. Pt has history of frequent UTI's until being given antibiotics as needed. She has not had UTI's with use of antibiotics. Pt states she is waiting for surgery at for her PF congestion. Orginally from [place], has spouse. Prior Treatments and Tests Dye test for reason for urinary tract infection (? intravenour pylegram) -2 yrs ago. Dye test for pelvic congestion (?venogram). Developmental History Developmental History Pt reports: Has pelvic congestion and is waiting for surgery; UTI's frequent 1x/month until started taking antibiotics, has not had infections. States infections after intercourse if not showering when camping. Treatment Goals Patient/Caregiver Goals Pt goal is: to be able to not have urgency , to not have urinary leakage with urgency to not have urinary leakage with lifting and sneezing. 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 PT-OP-C Subjective Start: 08/07/23 17:58 Freq: Status: Active Protocol: Document 09/17/23 13:00 LRN (Rec: 09/17/23 14:11 LRN [id number]) OP-PT Subjective Patient Comments Patient Comments Whole body feels tense, so having LBP 5/10 and feels heavy in pelvic region. Period is expected in 7 days. States after Estim felt like she worked out, sore. PT-OP-I Pelvic Floor Start: 08/07/23 17:58 Freq: Status: Active Protocol: Document 09/03/23 13:03 LRN (Rec: 09/03/23 13:47 LRN [id number]) Pelvic Floor Assessment SEMG (uV) Baseline 2.1 Quick Contraction 4.8 10 Second Contraction 5.6 Recruitment Pattern Good Relaxation Fair Stability of Hold Fair SEMG Stability of Rest Fair Comments Pelvic Floor Comments Pt hooklie with bolster under legs and arms by sides. Quick Flicks: Strength ~ 8 reps before decreasing or being inconsistent with strength. 10 reps strength (uV's): avg work 4.8, avg rest 2.5. 20 reps strength (uV's): avg work 4.9, avg rest 2.5. Long Holds: 10 reps strength (uV's): avg work 5.6, avg rest 2.6. 20 reps strength (uV's): avg work 5.6, avg rest 2.7. PT-OP-J Posture/Palpation/Skin Start: 08/07/23 17:58 Freq: Status: Active Protocol: Document 08/11/23 08:21 LRN (Rec: 08/11/23 09:46 LRN [id number]) Posture Evaluation Position Standing Head/C-Spine Posture Neutral Position L-Spine Posture Increased Lordosis Shoulder Posture (L) Elevated Pelvis Posture Anteriorly Tilted Weight Distribution Balanced Knee Posture (L) Genu Valgus,(R) Genu Valgus Comments Posture Comments Decreased thoracic curvature. L PSIS is posterior. PT-OP-K Range of Motion Start: 08/07/23 17:58 Freq: Status: Active Protocol: Document 08/11/23 08:21 LRN (Rec: 08/11/23 09:46 LRN [id number]) Lumbar Spine Range of Motion Lumbar Spine Active Degrees Testing Position Standing Flexion 95 Extension 30 Rotation Left 40 Rotation Right 40 Lateral Flexion Left 27 Lateral Flexion Right 27 Comments Trunk AROM: Flexion is 95 deg ?s with 65 deg?s hip flexion, Trunk extension is 30 deg?s with 0 deg?s hip extension. Hip Goniometric Range of Motion Hip Right Passive Testing Position Supine Internal Rotation 60 External Rotation 45 Left Passive Testing Position Supine Internal Rotation 50 External Rotation 50 PT-OP-M Strength Start: 08/07/23 17:58 Freq: Status: Active Protocol: Document 08/11/23 08:21 LRN (Rec: 08/11/23 09:46 LRN [id number]) Trunk Strength Trunk Manual Muscle Testing Core Stabilization Pt is not able to maintain core stability with MMT of LE' s. Hip Strength Hip Manual Muscle Testing Right Flexion (L2) 5 Normal Extension (S1) 3 Fair Abduction 4- Good- Adduction 3 Fair External Rotation 3+ Fair+ Internal Rotation 4 Good Left Flexion (L2) 5 Normal Extension (S1) 3 Fair Abduction 3 Fair Adduction 3 Fair External Rotation 5 Normal Internal Rotation 5 Normal PT-OP-Q Treatments Start: 08/07/23 17:58 Freq: Status: Active Protocol: Document 09/17/23 13:00 LRN (Rec: 09/17/23 14:11 LRN [id number]) Therapeutic Exercises Supine Exercises Happy Baby pose Supine Exercise Name Happy Baby Pose Reps/Minutes 4' Comments Cuing to breath through stretch. DB/LE roll -out Supine Exercise Name DB/LE roll in/out Reps/Minutes 3' Comments Cuing for coordinating mvmts ( breath in/abdomen out, knees out) Deep Breath (DB) Supine Exercise Name Deep Breath (6 sec breaths) Reps/Minutes 5' Comments Cuing for slow breaths and for full body relaxation/areas of tension Other Exercises Back stretch Other Exercise Name Child's Pose Reps/Minutes 4' Manual Therapy Treatment Soft Tissue Mobilization Abdomen Body Location Upper/lower core for facial rocking in kidneys region,& MFR trunk rotators Mobilization Type Myofascial Release Intensity/Depth Moderate Body Position Supine Comments L trunk rotators tighter than R. Initially rocking was reverse on R side, L side had less mobility. Neuro Re-Education Treatment Other Activities Vemg for ms relaxation Details Vemg stim 5', with 3' to don/ doff electrode Reps/Duration 5' Comments 10 on/10 off 100pps Intensity 9 PT-OP-T Assessment and Plan Start: 08/07/23 17:58 Freq: Status: Active Protocol: Document 09/17/23 13:00 LRN (Rec: 09/17/23 14:11 LRN [id number]) Physical Therapy Assessment Goals Decreased PF strength & endurance Impairment Decreased PF strength (2-3/5) and endurance (2 sec hold) Short Term Goal (STG) Improve PF strength to 3/5 STG Duration 6 wks- 09/21/23 Assisted Goal (LTG) Improve PF endurance to hold 10 secs before fatigue LTG Duration 12 wks-11/09/23 Three Impairment Stress urinary incontinence with lifting and sneezing. Short Term Goal (STG) Pt will be educated in core pressure management with transfers, ADLs, and exercise. 08/27/23: Pt educated in core pressure management w/ transfers. 09/03/23: Pt educated in core pressure management with ADLs, and exercise. STG Duration 3 wks-09/01/23 (09/03/23: MET GOAL) Lumber Scaler Goal (LTG) Pt will be able to maintain urinary continence with lifting and sneezing. LTG Duration 12 wks-11/09/23 Two Impairment Urge urinary incontinence in the presence of a strong urge. Short Term Goal (STG) Pt will be educated in urge deference technique, proper fluid management (including hydration level norms) and bladder irritants. STG Duration 2 wks-08/21/23 (08/21/23: MET GOAL) Lumber Scaler Goal (LTG) Pt will be able to maintain urinary continence in the presence of a strong urge. 09/03/23: At work is leaking, at home able to use delay technique to prevent urinary leakage. LTG Duration 12 wks-11/09/23 progressed 09/03/23 One Impairment Pt lacks an independent self care HEP. Short Term Goal (STG) Pt will be educated in vulvar/ perineal care & proper posturing in sit/stand. STG Duration 4 wks-09/11/23 Lumber Scaler Goal (LTG) Pt will be independent in a self care HEP for PF/hip strengthening, hip ROM. 08/21/23: HEP: Deep breathing, LE roll in/outs w/ breath/Kege, progressing to add one component at a timel. 08/27/23: HEP: Deep Breathing, Happy Baby Pose. Handout issued for transfers w /breath/PF. LTG Duration 12 wks-11/09/23 progressed 08/27/23 Assessment Summary Assessment 23 yo female who presents with mixed urinary incontinence with abdominal pain and a history of pelvic congestion. Cystocele grade 2 and sharp abdominal pain with PF contractions. Today she is having increased LBP (period starting in 7 days) and was sore (no pain) after use of EStim last session. Pelvis heavy and LBP probably from changes with pre-menstration. Pt learning tolerance level of EStim, less stimn for relaxation to PF tolerated today (intensity today 9, last session 10) Physical Therapy Plan Frequency and Duration Frequency of Treatment 1x/Week Duration of treatment (weeks) 12 Plan of Care Start Date 08/11/23 Plan of Care End Date 11/09/23 Next Visit Focus/Plan Next Note Type Treatment Note Next Visit Plan Next: Expect pt on her period ; therefore focus on manual therapy: lower abominal MFR, ?kidney mob. Assess response to last E-Stim for relaxation. Education: Vulvar and perineal care, different pads and usage ( urine vs menstrual), and proper sit/stand posture. When appropriate, Neuro thao for PF relaxation (Vemg). Ther ex: proper Kegel without use of substitute muscles, PF /hip strengthening. POC: Pt education, Manual therapy. ? Biofeedback with vaginal sensor. Therapeutic Exercises, Therapeutic Activities, Neuromuscular Reeducation.
--- NOTE | 2023-09-24 13:55 | PT.OTN ---
Current Diagnoses Muscle weakness (generalized) (09/24/23) Lower abdominal pain, unspecified (09/24/23) Unspecified urinary incontinence (09/24/23) Physical Therapy Treatment Note PT-OP-A Visit Information Start: 08/07/23 17:58 Freq: Status: Active Protocol: Document 09/24/23 13:03 LRN (Rec: 09/24/23 13:55 LRN [id number]) Out-Patient Physical Therapy Visit Information Visit Information Visit Type Treatment Note Visit Start Time 13:03 Visit Stop Time 13:43 Evaluation Information Evaluation Date 08/11/23 Precautions Precautions Back pain, Pelvic congestion history. PT-OP-B Current Condition Start: 08/07/23 17:58 Freq: Status: Active Protocol: Document 08/11/23 08:21 LRN (Rec: 08/11/23 09:46 LRN [id number]) Current Condition History of Current Condition Onset Date 06/2023 Current Complaints Urinary leakage if holding too long or doing light lifting mvmt, sneezing. History of Current Condition Sudden onset of urinary leakage, thought it was related to PF congestion, but was told there was no association. Pt has history of frequent UTI's until being given antibiotics as needed. She has not had UTI's with use of antibiotics. Pt states she is waiting for surgery at for her PF congestion. Orginally from [place], has spouse. Prior Treatments and Tests Dye test for reason for urinary tract infection (? intravenour pylegram) -2 yrs ago. Dye test for pelvic congestion (?venogram). Developmental History Developmental History Pt reports: Has pelvic congestion and is waiting for surgery; UTI's frequent 1x/month until started taking antibiotics, has not had infections. States infections after intercourse if not showering when camping. Treatment Goals Patient/Caregiver Goals Pt goal is: to be able to not have urgency , to not have urinary leakage with urgency to not have urinary leakage with lifting and sneezing. 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 PT-OP-C Subjective Start: 08/07/23 17:58 Freq: Status: Active Protocol: Document 09/24/23 13:03 LRN (Rec: 09/24/23 13:55 LRN [id number]) OP-PT Subjective Patient Comments Patient Comments On her period, pain is 7/10 in abdomen and 6/10 in back. No soreness w/EStim, had some relief of pain in abdomen ( usually no pain in legs- only once with flare up) for that day and the next (did not work the next day). But period started 3 days later. PT-OP-I Pelvic Floor Start: 08/07/23 17:58 Freq: Status: Active Protocol: Document 09/03/23 13:03 LRN (Rec: 09/03/23 13:47 LRN [id number]) Pelvic Floor Assessment SEMG (uV) Baseline 2.1 Quick Contraction 4.8 10 Second Contraction 5.6 Recruitment Pattern Good Relaxation Fair Stability of Hold Fair SEMG Stability of Rest Fair Comments Pelvic Floor Comments Pt hooklie with bolster under legs and arms by sides. Quick Flicks: Strength ~ 8 reps before decreasing or being inconsistent with strength. 10 reps strength (uV's): avg work 4.8, avg rest 2.5. 20 reps strength (uV's): avg work 4.9, avg rest 2.5. Long Holds: 10 reps strength (uV's): avg work 5.6, avg rest 2.6. 20 reps strength (uV's): avg work 5.6, avg rest 2.7. PT-OP-J Posture/Palpation/Skin Start: 08/07/23 17:58 Freq: Status: Active Protocol: Document 08/11/23 08:21 LRN (Rec: 08/11/23 09:46 LRN [id number]) Posture Evaluation Position Standing Head/C-Spine Posture Neutral Position L-Spine Posture Increased Lordosis Shoulder Posture (L) Elevated Pelvis Posture Anteriorly Tilted Weight Distribution Balanced Knee Posture (L) Genu Valgus,(R) Genu Valgus Comments Posture Comments Decreased thoracic curvature. L PSIS is posterior. PT-OP-K Range of Motion Start: 08/07/23 17:58 Freq: Status: Active Protocol: Document 08/11/23 08:21 LRN (Rec: 08/11/23 09:46 LRN [id number]) Lumbar Spine Range of Motion Lumbar Spine Active Degrees Testing Position Standing Flexion 95 Extension 30 Rotation Left 40 Rotation Right 40 Lateral Flexion Left 27 Lateral Flexion Right 27 Comments Trunk AROM: Flexion is 95 deg ?s with 65 deg?s hip flexion, Trunk extension is 30 deg?s with 0 deg?s hip extension. Hip Goniometric Range of Motion Hip Right Passive Testing Position Supine Internal Rotation 60 External Rotation 45 Left Passive Testing Position Supine Internal Rotation 50 External Rotation 50 PT-OP-M Strength Start: 08/07/23 17:58 Freq: Status: Active Protocol: Document 08/11/23 08:21 LRN (Rec: 08/11/23 09:46 LRN [id number]) Trunk Strength Trunk Manual Muscle Testing Core Stabilization Pt is not able to maintain core stability with MMT of LE' s. Hip Strength Hip Manual Muscle Testing Right Flexion (L2) 5 Normal Extension (S1) 3 Fair Abduction 4- Good- Adduction 3 Fair External Rotation 3+ Fair+ Internal Rotation 4 Good Left Flexion (L2) 5 Normal Extension (S1) 3 Fair Abduction 3 Fair Adduction 3 Fair External Rotation 5 Normal Internal Rotation 5 Normal PT-OP-Q Treatments Start: 08/07/23 17:58 Freq: Status: Active Protocol: Document 09/24/23 13:03 LRN (Rec: 09/24/23 13:55 LRN [id number]) Cardio Equipment Treadmill Duration (Minutes) 8 Speed 2 Incline 3 Other Cued to deep breath, phys cue for fwd pelvis on toe off leg. Therapeutic Exercises Supine Exercises Trunk Rot stretch Supine Exercise Name Trunk Rot stretch (knee roll to R). Side left Reps/Minutes 4' Hip IR/ER Supine Exercise Name Manual hip IR/ER stretch Side bilateral Reps/Minutes 4' Comments PROM taken Hip Rot stretch Supine Exercise Name L hip IR/R hip ER & L hip ER /R hip IR. Side bilateral Reps/Minutes 4' Comments I/S pt to do Fig 4 stretch instead. Hip ER stretch Supine Exercise Name Fig 4 stretch Side bilateral Equipment Used Ball to support leg underneath . Reps/Minutes 8' Sitting Exercises Hip ER ankle over knee Sitting Exercise Name Hip ER stretch Side bilateral Reps/Minutes 6' (2x L, 1x R) Hip ER stretch Sitting Exercise Name Side-sit on leg in ER position . Side bilateral Reps/Minutes 4' PT-OP-T Assessment and Plan Start: 08/07/23 17:58 Freq: Status: Active Protocol: Document 09/24/23 13:03 LRN (Rec: 09/24/23 13:55 LRN [id number]) Physical Therapy Assessment Goals Decreased PF strength & endurance Impairment Decreased PF strength (2-3/5) and endurance (2 sec hold) Short Term Goal (STG) Improve PF strength to 3/5 STG Duration 6 wks- 09/21/23 Group Home Goal (LTG) Improve PF endurance to hold 10 secs before fatigue LTG Duration 12 wks-11/09/23 Three Impairment Stress urinary incontinence with lifting and sneezing. Short Term Goal (STG) Pt will be educated in core pressure management with transfers, ADLs, and exercise. 08/27/23: Pt educated in core pressure management w/ transfers. 09/03/23: Pt educated in core pressure management with ADLs, and exercise. STG Duration 3 wks-09/01/23 (09/03/23: MET GOAL) Group Home Goal (LTG) Pt will be able to maintain urinary continence with lifting and sneezing. LTG Duration 12 wks-11/09/23 Two Impairment Urge urinary incontinence in the presence of a strong urge. Short Term Goal (STG) Pt will be educated in urge deference technique, proper fluid management (including hydration level norms) and bladder irritants. STG Duration 2 wks-08/21/23 (08/21/23: MET GOAL) Contracts Specialist Goal (LTG) Pt will be able to maintain urinary continence in the presence of a strong urge. 09/03/23: At work is leaking, at home able to use delay technique to prevent urinary leakage. LTG Duration 12 wks-11/09/23 progressed 09/03/23 One Impairment Pt lacks an independent self care HEP. Short Term Goal (STG) Pt will be educated in vulvar/ perineal care & proper posturing in sit/stand. STG Duration 4 wks-09/11/23 Contracts Specialist Goal (LTG) Pt will be independent in a self care HEP for PF/hip strengthening, hip ROM. 08/21/23: HEP: Deep breathing, LE roll in/outs w/ breath/Kege, progressing to add one component at a timel. 08/27/23: HEP: Deep Breathing, Happy Baby Pose. Handout issued for transfers w /breath/PF. 09/24/23: I/S pt to focus on hip ER stretch (L>R) and trunk rot stretch on L side. LTG Duration 12 wks-11/09/23 progressed 08/27/23 Assessment Summary Assessment 23 yo female who presents with mixed urinary incontinence with abdominal pain and a history of pelvic congestion. + response EStim and abdominal mob last treatment. Pt on period; therefore not able to do Vemg biofeedback. Physical Therapy Plan Frequency and Duration Frequency of Treatment 1x/Week Duration of treatment (weeks) 12 Plan of Care Start Date 08/11/23 Plan of Care End Date 11/09/23 Next Visit Focus/Plan Next Note Type Treatment Note Next Visit Plan Next: Expect pt on her period ; therefore focus on manual therapy: lower abominal MFR, kidney mob. Assess response to last E-Stim for relaxation . Education: Vulvar/ perineal care and proper sit/ stand posture, & different pads and usage (urine vs menstrual). When appropriate, Neuro thao for PF relaxation (Vemg). Ther ex: proper Kegel without use of substitute muscles, PF /hip strengthening. POC: Pt education, Manual therapy. ? Biofeedback with vaginal sensor. Therapeutic Exercises, Therapeutic Activities, Neuromuscular Reeducation.
--- NOTE | 2023-09-24 13:57 | PT.OTN ---
Current Diagnoses Muscle weakness (generalized) (09/24/23) Lower abdominal pain, unspecified (09/24/23) Unspecified urinary incontinence (09/24/23) Physical Therapy Treatment Note PT-OP-A Visit Information Start: 08/07/23 17:58 Freq: Status: Active Protocol: Document 09/24/23 13:03 LRN (Rec: 09/24/23 13:55 LRN [id number]) Out-Patient Physical Therapy Visit Information Visit Information Visit Type Treatment Note Visit Start Time 13:03 Visit Stop Time 13:43 Evaluation Information Evaluation Date 08/11/23 Precautions Precautions Back pain, Pelvic congestion history. PT-OP-B Current Condition Start: 08/07/23 17:58 Freq: Status: Active Protocol: Document 08/11/23 08:21 LRN (Rec: 08/11/23 09:46 LRN [id number]) Current Condition History of Current Condition Onset Date 06/2023 Current Complaints Urinary leakage if holding too long or doing light lifting mvmt, sneezing. History of Current Condition Sudden onset of urinary leakage, thought it was related to PF congestion, but was told there was no association. Pt has history of frequent UTI's until being given antibiotics as needed. She has not had UTI's with use of antibiotics. Pt states she is waiting for surgery at for her PF congestion. Orginally from [place], has spouse. Prior Treatments and Tests Dye test for reason for urinary tract infection (? intravenour pylegram) -2 yrs ago. Dye test for pelvic congestion (?venogram). Developmental History Developmental History Pt reports: Has pelvic congestion and is waiting for surgery; UTI's frequent 1x/month until started taking antibiotics, has not had infections. States infections after intercourse if not showering when camping. Treatment Goals Patient/Caregiver Goals Pt goal is: to be able to not have urgency , to not have urinary leakage with urgency to not have urinary leakage with lifting and sneezing. 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 PT-OP-C Subjective Start: 08/07/23 17:58 Freq: Status: Active Protocol: Document 09/24/23 13:03 LRN (Rec: 09/24/23 13:55 LRN [id number]) OP-PT Subjective Patient Comments Patient Comments On her period, pain is 7/10 in abdomen and 6/10 in back. No soreness w/EStim, had some relief of pain in abdomen ( usually no pain in legs- only once with flare up) for that day and the next (did not work the next day). But period started 3 days later. PT-OP-I Pelvic Floor Start: 08/07/23 17:58 Freq: Status: Active Protocol: Document 09/03/23 13:03 LRN (Rec: 09/03/23 13:47 LRN [id number]) Pelvic Floor Assessment SEMG (uV) Baseline 2.1 Quick Contraction 4.8 10 Second Contraction 5.6 Recruitment Pattern Good Relaxation Fair Stability of Hold Fair SEMG Stability of Rest Fair Comments Pelvic Floor Comments Pt hooklie with bolster under legs and arms by sides. Quick Flicks: Strength ~ 8 reps before decreasing or being inconsistent with strength. 10 reps strength (uV's): avg work 4.8, avg rest 2.5. 20 reps strength (uV's): avg work 4.9, avg rest 2.5. Long Holds: 10 reps strength (uV's): avg work 5.6, avg rest 2.6. 20 reps strength (uV's): avg work 5.6, avg rest 2.7. PT-OP-J Posture/Palpation/Skin Start: 08/07/23 17:58 Freq: Status: Active Protocol: Document 08/11/23 08:21 LRN (Rec: 08/11/23 09:46 LRN [id number]) Posture Evaluation Position Standing Head/C-Spine Posture Neutral Position L-Spine Posture Increased Lordosis Shoulder Posture (L) Elevated Pelvis Posture Anteriorly Tilted Weight Distribution Balanced Knee Posture (L) Genu Valgus,(R) Genu Valgus Comments Posture Comments Decreased thoracic curvature. L PSIS is posterior. PT-OP-K Range of Motion Start: 08/07/23 17:58 Freq: Status: Active Protocol: Document 09/24/23 13:03 LRN (Rec: 09/24/23 13:57 LRN [id number]) Hip Goniometric Range of Motion Hip Right Passive Testing Position Supine Internal Rotation 60 External Rotation 75 Left Passive Testing Position Supine Internal Rotation 50 External Rotation 65 PT-OP-M Strength Start: 08/07/23 17:58 Freq: Status: Active Protocol: Document 08/11/23 08:21 LRN (Rec: 08/11/23 09:46 LRN [id number]) Trunk Strength Trunk Manual Muscle Testing Core Stabilization Pt is not able to maintain core stability with MMT of LE' s. Hip Strength Hip Manual Muscle Testing Right Flexion (L2) 5 Normal Extension (S1) 3 Fair Abduction 4- Good- Adduction 3 Fair External Rotation 3+ Fair+ Internal Rotation 4 Good Left Flexion (L2) 5 Normal Extension (S1) 3 Fair Abduction 3 Fair Adduction 3 Fair External Rotation 5 Normal Internal Rotation 5 Normal PT-OP-Q Treatments Start: 08/07/23 17:58 Freq: Status: Active Protocol: Document 09/24/23 13:03 LRN (Rec: 09/24/23 13:55 LRN [id number]) Cardio Equipment Treadmill Duration (Minutes) 8 Speed 2 Incline 3 Other Cued to deep breath, phys cue for fwd pelvis on toe off leg. Therapeutic Exercises Supine Exercises Trunk Rot stretch Supine Exercise Name Trunk Rot stretch (knee roll to R). Side left Reps/Minutes 4' Hip IR/ER Supine Exercise Name Manual hip IR/ER stretch Side bilateral Reps/Minutes 4' Comments PROM taken Hip Rot stretch Supine Exercise Name L hip IR/R hip ER & L hip ER /R hip IR. Side bilateral Reps/Minutes 4' Comments I/S pt to do Fig 4 stretch instead. Hip ER stretch Supine Exercise Name Fig 4 stretch Side bilateral Equipment Used Ball to support leg underneath . Reps/Minutes 8' Sitting Exercises Hip ER ankle over knee Sitting Exercise Name Hip ER stretch Side bilateral Reps/Minutes 6' (2x L, 1x R) Hip ER stretch Sitting Exercise Name Side-sit on leg in ER position . Side bilateral Reps/Minutes 4' PT-OP-T Assessment and Plan Start: 08/07/23 17:58 Freq: Status: Active Protocol: Document 09/24/23 13:03 LRN (Rec: 09/24/23 13:55 LRN [id number]) Physical Therapy Assessment Goals Decreased PF strength & endurance Impairment Decreased PF strength (2-3/5) and endurance (2 sec hold) Short Term Goal (STG) Improve PF strength to 3/5 STG Duration 6 wks- 09/21/23 Fdc Goal (LTG) Improve PF endurance to hold 10 secs before fatigue LTG Duration 12 wks-11/09/23 Three Impairment Stress urinary incontinence with lifting and sneezing. Short Term Goal (STG) Pt will be educated in core pressure management with transfers, ADLs, and exercise. 08/27/23: Pt educated in core pressure management w/ transfers. 09/03/23: Pt educated in core pressure management with ADLs, and exercise. STG Duration 3 wks-09/01/23 (09/03/23: MET GOAL) Gold Beater Goal (LTG) Pt will be able to maintain urinary continence with lifting and sneezing. LTG Duration 12 wks-11/09/23 Two Impairment Urge urinary incontinence in the presence of a strong urge. Short Term Goal (STG) Pt will be educated in urge deference technique, proper fluid management (including hydration level norms) and bladder irritants. STG Duration 2 wks-08/21/23 (08/21/23: MET GOAL) Fdc Goal (LTG) Pt will be able to maintain urinary continence in the presence of a strong urge. 09/03/23: At work is leaking, at home able to use delay technique to prevent urinary leakage. LTG Duration 12 wks-11/09/23 progressed 09/03/23 One Impairment Pt lacks an independent self care HEP. Short Term Goal (STG) Pt will be educated in vulvar/ perineal care & proper posturing in sit/stand. STG Duration 4 wks-09/11/23 Gold Beater Goal (LTG) Pt will be independent in a self care HEP for PF/hip strengthening, hip ROM. 08/21/23: HEP: Deep breathing, LE roll in/outs w/ breath/[place], progressing to add one component at a timel. 08/27/23: HEP: Deep Breathing, Happy Baby Pose. Handout issued for transfers w /breath/PF. 09/24/23: I/S pt to focus on hip ER stretch (L>R) and trunk rot stretch on L side. LTG Duration 12 wks-11/09/23 progressed 08/27/23 Assessment Summary Assessment 23 yo female who presents with mixed urinary incontinence with abdominal pain and a history of pelvic congestion. + response EStim and abdominal mob last treatment. Pt on period; therefore not able to do Vemg biofeedback. Physical Therapy Plan Frequency and Duration Frequency of Treatment 1x/Week Duration of treatment (weeks) 12 Plan of Care Start Date 08/11/23 Plan of Care End Date 11/09/23 Next Visit Focus/Plan Next Note Type Treatment Note Next Visit Plan Next: Expect pt on her period ; therefore focus on manual therapy: lower abominal MFR, kidney mob. Assess response to last E-Stim for relaxation . Education: Vulvar/ perineal care and proper sit/ stand posture, & different pads and usage (urine vs menstrual). When appropriate, Neuro thao for PF relaxation (Vemg). Ther ex: proper Kegel without use of substitute muscles, PF /hip strengthening. POC: Pt education, Manual therapy. ? Biofeedback with vaginal sensor. Therapeutic Exercises, Therapeutic Activities, Neuromuscular Reeducation.
--- NOTE | 2023-09-28 14:17 | PT.OTN ---
Current Diagnoses Muscle weakness (generalized) (09/28/23) Lower abdominal pain, unspecified (09/28/23) Unspecified urinary incontinence (09/28/23) Physical Therapy Treatment Note PT-OP-A Visit Information Start: 08/07/23 17:58 Freq: Status: Active Protocol: Document 09/28/23 13:03 LRN (Rec: 09/28/23 13:53 LRN [id number]) Out-Patient Physical Therapy Visit Information Visit Information Visit Type Treatment Note Visit Start Time 13:04 Visit Stop Time 13:50 Evaluation Information Evaluation Date 08/11/23 Precautions Precautions Back pain, Pelvic congestion history. PT-OP-B Current Condition Start: 08/07/23 17:58 Freq: Status: Active Protocol: Document 08/11/23 08:21 LRN (Rec: 08/11/23 09:46 LRN [id number]) Current Condition History of Current Condition Onset Date 06/2023 Current Complaints Urinary leakage if holding too long or doing light lifting mvmt, sneezing. History of Current Condition Sudden onset of urinary leakage, thought it was related to PF congestion, but was told there was no association. Pt has history of frequent UTI's until being given antibiotics as needed. She has not had UTI's with use of antibiotics. Pt states she is waiting for surgery at for her PF congestion. Orginally from [place], has spouse. Prior Treatments and Tests Dye test for reason for urinary tract infection (? intravenour pylegram) -2 yrs ago. Dye test for pelvic congestion (?venogram). Developmental History Developmental History Pt reports: Has pelvic congestion and is waiting for surgery; UTI's frequent 1x/month until started taking antibiotics, has not had infections. States infections after intercourse if not showering when camping. Treatment Goals Patient/Caregiver Goals Pt goal is: to be able to not have urgency , to not have urinary leakage with urgency to not have urinary leakage with lifting and sneezing. 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 PT-OP-C Subjective Start: 08/07/23 17:58 Freq: Status: Active Protocol: Document 09/28/23 13:03 LRN (Rec: 09/28/23 13:53 LRN [id number]) OP-PT Subjective Patient Comments Patient Comments Off period, no pelvic pain, and LBP is 2-3/10. PT-OP-I Pelvic Floor Start: 08/07/23 17:58 Freq: Status: Active Protocol: Document 09/28/23 13:03 LRN (Rec: 09/28/23 13:53 LRN [id number]) Pelvic Floor Assessment SEMG (uV) Baseline 1.1 Comments Pelvic Floor Comments Baseline to start (see above), baseline after ESTIM for relaxation: PT-OP-J Posture/Palpation/Skin Start: 08/07/23 17:58 Freq: Status: Active Protocol: Document 08/11/23 08:21 LRN (Rec: 08/11/23 09:46 LRN [id number]) Posture Evaluation Position Standing Head/C-Spine Posture Neutral Position L-Spine Posture Increased Lordosis Shoulder Posture (L) Elevated Pelvis Posture Anteriorly Tilted Weight Distribution Balanced Knee Posture (L) Genu Valgus,(R) Genu Valgus Comments Posture Comments Decreased thoracic curvature. L PSIS is posterior. PT-OP-K Range of Motion Start: 08/07/23 17:58 Freq: Status: Active Protocol: Document 09/24/23 13:03 LRN (Rec: 09/24/23 13:57 LRN [id number]) Hip Goniometric Range of Motion Hip Right Passive Testing Position Supine Internal Rotation 60 External Rotation 75 Left Passive Testing Position Supine Internal Rotation 50 External Rotation 65 PT-OP-M Strength Start: 08/07/23 17:58 Freq: Status: Active Protocol: Document 08/11/23 08:21 LRN (Rec: 08/11/23 09:46 LRN [id number]) Trunk Strength Trunk Manual Muscle Testing Core Stabilization Pt is not able to maintain core stability with MMT of LE' s. Hip Strength Hip Manual Muscle Testing Right Flexion (L2) 5 Normal Extension (S1) 3 Fair Abduction 4- Good- Adduction 3 Fair External Rotation 3+ Fair+ Internal Rotation 4 Good Left Flexion (L2) 5 Normal Extension (S1) 3 Fair Abduction 3 Fair Adduction 3 Fair External Rotation 5 Normal Internal Rotation 5 Normal PT-OP-Q Treatments Start: 08/07/23 17:58 Freq: Status: Active Protocol: Document 09/28/23 13:03 LRN (Rec: 09/28/23 13:53 LRN [id number]) Therapeutic Exercises Supine Exercises Hip IR/ER Supine Exercise Name Manual hip IR/ER stretch Side bilateral Reps/Minutes 3' Hip ER stretch Supine Exercise Name Fig 4 stretch Side bilateral Reps/Minutes 4' Happy Baby pose Supine Exercise Name Happy Baby Pose Reps/Minutes 2' Comments Cuing to breath through stretch. Sitting Exercises Hip ER stretch Sitting Exercise Name Side-sit on leg in ER position . Side bilateral Reps/Minutes 4' Neuro Re-Education Treatment Other Activities Vemg for PF awareness Details Vemg with bar scroll for PF awareness of contraction and relaxation Reps/Duration 22' Comments Baseline x 2, Quick contraction Long hold contraction Vemg for ms relaxation Details Vemg stim 5', with 3' to don/ doff electrode Reps/Duration 5' Comments 10 on/10 off 100pps Intensity 11 Self-Care/Home Management Treatment Education Other Education Discussed: Vulvar/perineal care, proper sit posture, & different pads and usage ( urine vs menstrual) Activities Self-Care/Home Management Activities Issued & reviewed vulvar/ perineal care handout. PT-OP-T Assessment and Plan Start: 08/07/23 17:58 Freq: Status: Active Protocol: Document 09/28/23 13:03 LRN (Rec: 09/28/23 13:53 LRN [id number]) Physical Therapy Assessment Goals Decreased PF strength & endurance Impairment Decreased PF strength (2-3/5) and endurance (2 sec hold) Short Term Goal (STG) Improve PF strength to 3/5 STG Duration 6 wks- 09/21/23 Mail Processing Equipment Mechanic Goal (LTG) Improve PF endurance to hold 10 secs before fatigue LTG Duration 12 wks-11/09/23 Three Impairment Stress urinary incontinence with lifting and sneezing. Short Term Goal (STG) Pt will be educated in core pressure management with transfers, ADLs, and exercise. 08/27/23: Pt educated in core pressure management w/ transfers. 09/03/23: Pt educated in core pressure management with ADLs, and exercise. STG Duration 3 wks-09/01/23 (09/03/23: MET GOAL) Mail Processing Equipment Mechanic Goal (LTG) Pt will be able to maintain urinary continence with lifting and sneezing. LTG Duration 12 wks-11/09/23 Two Impairment Urge urinary incontinence in the presence of a strong urge. Short Term Goal (STG) Pt will be educated in urge deference technique, proper fluid management (including hydration level norms) and bladder irritants. STG Duration 2 wks-08/21/23 (08/21/23: MET GOAL) Mail Processing Equipment Mechanic Goal (LTG) Pt will be able to maintain urinary continence in the presence of a strong urge. 09/03/23: At work is leaking, at home able to use delay technique to prevent urinary leakage. LTG Duration 12 wks-11/09/23 progressed 09/03/23 One Impairment Pt lacks an independent self care HEP. Short Term Goal (STG) Pt will be educated in vulvar/ perineal care & proper posturing in sit/stand. Education: Vulvar/perineal care and proper sit posture. STG Duration 4 wks-09/11/23 progressed 09/28/23 (need stand posture training) Mail Processing Equipment Mechanic Goal (LTG) Pt will be independent in a self care HEP for PF/hip strengthening, hip ROM. 08/21/23: HEP: Deep breathing, LE roll in/outs w/ breath/Kegel, progressing to add one component at a timel. 08/27/23: HEP: Deep Breathing, Happy Baby Pose. Handout issued for transfers w /breath/PF. 09/24/23: I/S pt to focus on hip ER stretch (L>R) and trunk rot stretch on L side. LTG Duration 12 wks-11/09/23 progressed 08/27/23 Assessment Summary Assessment 23 yo female who presents with mixed urinary incontinence with abdominal pain and a history of pelvic congestion. She has improved in PF strength and ability to contract and relax PF. Improvement noted with use of Vemg visual feedback (scroll). Endurance is low. Pt was receptive to education on perineum/vulva, use of urinary pads vs menstral pad. Posture needs reminding. + response to 5' of EStim to relax PF with more steady relaxation of PF noted after stim. Physical Therapy Plan Frequency and Duration Frequency of Treatment 1x/Week Duration of treatment (weeks) 12 Plan of Care Start Date 08/11/23 Plan of Care End Date 11/09/23 Next Visit Focus/Plan Next Note Type Treatment Note Next Visit Plan Next: Educate stand posture & issue handout. Assess response to last E-Stim for relaxation. Manual therapy: lower abominal MFR, kidney mob . Neuro thao for PF relaxation (Vemg) and end with Stim for relaxation of PF. Add: trng for proper Kegel without use of substitute muscles, PF/hip strengthening, and aggrevator training ( lifting and sneezing). POC: Pt education, Manual therapy. ? Biofeedback with vaginal sensor. Therapeutic Exercises, Therapeutic Activities, Neuromuscular Reeducation.
--- NOTE | 2023-10-05 17:20 | PT.OTN ---
Current Diagnoses Muscle weakness (generalized) (10/05/23) Lower abdominal pain, unspecified (10/05/23) Unspecified urinary incontinence (10/05/23) Physical Therapy Treatment Note PT-OP-A Visit Information Start: 08/07/23 17:58 Freq: Status: Active Protocol: Document 10/05/23 08:12 LRN (Rec: 10/05/23 09:03 LRN [id number]) Out-Patient Physical Therapy Visit Information Visit Information Visit Type Treatment Note Visit Start Time 08:12 Visit Stop Time 08:50 Visit Number 9 Evaluation Information Evaluation Date 08/11/23 Precautions Precautions Back pain, Pelvic congestion history. PT-OP-B Current Condition Start: 08/07/23 17:58 Freq: Status: Active Protocol: Document 08/11/23 08:21 LRN (Rec: 08/11/23 09:46 LRN [id number]) Current Condition History of Current Condition Onset Date 06/2023 Current Complaints Urinary leakage if holding too long or doing light lifting mvmt, sneezing. History of Current Condition Sudden onset of urinary leakage, thought it was related to PF congestion, but was told there was no association. Pt has history of frequent UTI's until being given antibiotics as needed. She has not had UTI's with use of antibiotics. Pt states she is waiting for surgery at for her PF congestion. Orginally from [place], has spouse. Prior Treatments and Tests Dye test for reason for urinary tract infection (? intravenour pylegram) -2 yrs ago. Dye test for pelvic congestion (?venogram). Developmental History Developmental History Pt reports: Has pelvic congestion and is waiting for surgery; UTI's frequent 1x/month until started taking antibiotics, has not had infections. States infections after intercourse if not showering when camping. Treatment Goals Patient/Caregiver Goals Pt goal is: to be able to not have urgency , to not have urinary leakage with urgency to not have urinary leakage with lifting and sneezing. 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 PT-OP-C Subjective Start: 08/07/23 17:58 Freq: Status: Active Protocol: Document 10/05/23 08:12 LRN (Rec: 10/05/23 09:03 LRN [id number]) OP-PT Subjective Patient Comments Patient Comments States insertion of the electrode is more difficult today, body wants to push it out. Most leakage is with lifting something. Leaking sometimes with a strong urge and leaking a little bit if trying not to hold urine long. PT-OP-I Pelvic Floor Start: 08/07/23 17:58 Freq: Status: Active Protocol: Document 10/05/23 08:12 LRN (Rec: 10/05/23 09:03 LRN [id number]) Pelvic Floor Assessment SEMG (uV) Baseline 3.1 Quick Contraction 4.0 10 Second Contraction 4.3 Recruitment Pattern Good Relaxation Fair Holding Fair Stability of Hold Poor/Slow SEMG Stability of Rest Fair Comments Pelvic Floor Comments Pt hooklie with bolster under legs and arms by sides. Quick Flicks: Strength ~ 8 reps before decreasing or being inconsistent with strength. 10 reps strength (uV's): avg work 4.0, avg rest 2.5. 20 reps strength (uV's): avg work 4.1, avg rest 2.5. Long Holds: 10 reps strength (uV's): avg work 4.3, avg rest 1.7. 20 reps strength (uV's): avg work 5.6, avg rest 2.7. PT-OP-J Posture/Palpation/Skin Start: 08/07/23 17:58 Freq: Status: Active Protocol: Document 08/11/23 08:21 LRN (Rec: 08/11/23 09:46 LRN [id number]) Posture Evaluation Position Standing Head/C-Spine Posture Neutral Position L-Spine Posture Increased Lordosis Shoulder Posture (L) Elevated Pelvis Posture Anteriorly Tilted Weight Distribution Balanced Knee Posture (L) Genu Valgus,(R) Genu Valgus Comments Posture Comments Decreased thoracic curvature. L PSIS is posterior. PT-OP-K Range of Motion Start: 08/07/23 17:58 Freq: Status: Active Protocol: Document 09/24/23 13:03 LRN (Rec: 09/24/23 13:57 LRN [id number]) Hip Goniometric Range of Motion Hip Right Passive Testing Position Supine Internal Rotation 60 External Rotation 75 Left Passive Testing Position Supine Internal Rotation 50 External Rotation 65 PT-OP-M Strength Start: 08/07/23 17:58 Freq: Status: Active Protocol: Document 08/11/23 08:21 LRN (Rec: 08/11/23 09:46 LRN [id number]) Trunk Strength Trunk Manual Muscle Testing Core Stabilization Pt is not able to maintain core stability with MMT of LE' s. Hip Strength Hip Manual Muscle Testing Right Flexion (L2) 5 Normal Extension (S1) 3 Fair Abduction 4- Good- Adduction 3 Fair External Rotation 3+ Fair+ Internal Rotation 4 Good Left Flexion (L2) 5 Normal Extension (S1) 3 Fair Abduction 3 Fair Adduction 3 Fair External Rotation 5 Normal Internal Rotation 5 Normal PT-OP-Q Treatments Start: 08/07/23 17:58 Freq: Status: Active Protocol: Document 10/05/23 08:12 LRN (Rec: 10/05/23 09:03 LRN [id number]) Therapeutic Exercises Supine Exercises Happy Baby pose Supine Exercise Name Happy Baby Pose Reps/Minutes 2' Comments Cuing to breath through stretch. Sitting Exercises Hip ER ankle over knee Sitting Exercise Name Hip ER stretch Side bilateral Reps/Minutes 4' (2x L, 1x R) Hip ER stretch Sitting Exercise Name Side-sit on leg in ER position . Side bilateral Reps/Minutes 4' Neuro Re-Education Treatment Other Activities Vemg for assist of PF contraction for awareness Details Vemg for stim to get PF contraction to get awareness of proper contraction. Reps/Duration 3' Comments Pt felt proper PF contraction initially, then not able to get feeling of contraction at 18 mV's to 23mV's. Vemg for PF awareness Details Vemg with bar scroll for PF awareness of contraction and relaxation Reps/Duration 22' Comments Baseline x 3, Quick contraction Long hold contraction Self-Care/Home Management Treatment Education Patient Education Posture Other Education Pt education in proper posture sitting and standing. Activities Self-Care/Home Management Activities Handout issued of proper sitting and standing posture and Proper Posture: Kegy to Safe Movement. PT-OP-T Assessment and Plan Start: 08/07/23 17:58 Freq: Status: Active Protocol: Document 10/05/23 08:12 LRN (Rec: 10/05/23 09:03 LRN [id number]) Physical Therapy Assessment Goals Decreased PF strength & endurance Impairment Decreased PF strength (2-3/5) and endurance (2 sec hold) Short Term Goal (STG) Improve PF strength to 3/5 STG Duration 6 wks- 09/21/23 Wireless Sales Expert Goal (LTG) Improve PF endurance to hold 10 secs before fatigue LTG Duration 12 wks-11/09/23 Three Impairment Stress urinary incontinence with lifting and sneezing. Short Term Goal (STG) Pt will be educated in core pressure management with transfers, ADLs, and exercise. 08/27/23: Pt educated in core pressure management w/ transfers. 09/03/23: Pt educated in core pressure management with ADLs, and exercise. STG Duration 3 wks-09/01/23 (09/03/23: MET GOAL) Wireless Sales Expert Goal (LTG) Pt will be able to maintain urinary continence with lifting and sneezing. LTG Duration 12 wks-11/09/23 Two Impairment Urge urinary incontinence in the presence of a strong urge. Short Term Goal (STG) Pt will be educated in urge deference technique, proper fluid management (including hydration level norms) and bladder irritants. STG Duration 2 wks-08/21/23 (08/21/23: MET GOAL) Wireless Sales Expert Goal (LTG) Pt will be able to maintain urinary continence in the presence of a strong urge. 09/03/23: At work is leaking, at home able to use delay technique to prevent urinary leakage. LTG Duration 12 wks-11/09/23 progressed 09/03/23 One Impairment Pt lacks an independent self care HEP. Short Term Goal (STG) Pt will be educated in vulvar/ perineal care & proper posturing in sit/stand. Education: Vulvar/perineal care and proper sit posture. 10/05/23: Pt Educated in proper stand/sit posture & handout issued. STG Duration 4 wks-09/11/23 10/05/23: MET GOAL Wireless Sales Expert Goal (LTG) Pt will be independent in a self care HEP for PF/hip strengthening, hip ROM. 08/21/23: HEP: Deep breathing, LE roll in/outs w/ breath/Kegel, progressing to add one component at a timel. 08/27/23: HEP: Deep Breathing, Happy Baby Pose. Handout issued for transfers w /breath/PF. 09/24/23: I/S pt to focus on hip ER stretch (L>R) and trunk rot stretch on L side. LTG Duration 12 wks-11/09/23 progressed 08/27/23 Assessment Summary Assessment 23 yo female who presents with mixed urinary incontinence with abdominal pain and a history of pelvic congestion. Today her PF strength is less than initial (per Vemg), but is isolating her PF and not breathholding. Use of visual feedback helps pt to hold her PF contractions and helps her to get to a more consistent resting tone. With stim to PF she was able to feel a correct PF contraction but was not able to continue feeling the contraction after a few minutes (stim @ 18 mV's) and even at 23 mV's was not able to feel; therefore she may have been in a contracted state or Pelvic congestion/ lack of circulation to relax. Physical Therapy Plan Frequency and Duration Frequency of Treatment 1x/Week Duration of treatment (weeks) 12 Plan of Care Start Date 08/11/23 Plan of Care End Date 11/09/23 Next Visit Focus/Plan Next Note Type Treatment Note Next Visit Plan Next: Assess response to last E-Stim for PF contraction. Training for PF contraction f/ b relaxtion. Manual therapy : lower abdominal MFR, kidney mob. Neuro thao for PF relaxation (Vemg) and end with Stim for relaxation of PF. Add: trng for proper Kegel without use of substitute muscles, PF/hip strengthening, and aggrevator training ( lifting and sneezing). POC: Pt education, Manual therapy. ? Biofeedback with vaginal sensor. Therapeutic Exercises, Therapeutic Activities, Neuromuscular Reeducation.
--- NOTE | 2023-10-05 17:24 | PT-OP ANOTE ---
Per phone, pt notified of auth expiration on 10/05/23. Pt informed to contact her PCP to have them submit for new auth. Next scheduled visit 10/22/23. New authorization required. Pt reported she will notify her PCP immediately.
--- NOTE | 2023-10-13 16:40 | PT.OTN ---
Current Diagnoses Muscle weakness (generalized) (10/13/23) Lower abdominal pain, unspecified (10/13/23) Unspecified urinary incontinence (10/13/23) Physical Therapy Treatment Note PT-OP-A Visit Information Start: 08/07/23 17:58 Freq: Status: Active Protocol: Document 10/13/23 14:23 LRN (Rec: 10/13/23 16:36 LRN [id number]) Out-Patient Physical Therapy Visit Information Visit Information Visit Type Progress Note Visit Start Time 14:23 Visit Stop Time 15:10 Visit Number 10 Evaluation Information Evaluation Date 08/11/23 Precautions Precautions Back pain, Pelvic congestion history. PT-OP-B Current Condition Start: 08/07/23 17:58 Freq: Status: Active Protocol: Document 08/11/23 08:21 LRN (Rec: 08/11/23 09:46 LRN [id number]) Current Condition History of Current Condition Onset Date 06/2023 Current Complaints Urinary leakage if holding too long or doing light lifting mvmt, sneezing. History of Current Condition Sudden onset of urinary leakage, thought it was related to PF congestion, but was told there was no association. Pt has history of frequent UTI's until being given antibiotics as needed. She has not had UTI's with use of antibiotics. Pt states she is waiting for surgery at for her PF congestion. Orginally from [place], has spouse. Prior Treatments and Tests Dye test for reason for urinary tract infection (? intravenour pylegram) -2 yrs ago. Dye test for pelvic congestion (?venogram). Developmental History Developmental History Pt reports: Has pelvic congestion and is waiting for surgery; UTI's frequent 1x/month until started taking antibiotics, has not had infections. States infections after intercourse if not showering when camping. Treatment Goals Patient/Caregiver Goals Pt goal is: to be able to not have urgency , to not have urinary leakage with urgency to not have urinary leakage with lifting and sneezing. 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 PT-OP-C Subjective Start: 08/07/23 17:58 Freq: Status: Active Protocol: Document 10/13/23 14:23 LRN (Rec: 10/13/23 16:36 LRN [id number]) OP-PT Subjective Patient Comments Patient Comments No change with urinary leakage . Goes from urge to bloating to abdominal pain w/in 10 mnutes. Patient Questionnaires Pelvic Pain and Urgency/Frequency Patient Symptom Scale Pelvic Pain Score 18 PT-OP-I Pelvic Floor Start: 08/07/23 17:58 Freq: Status: Active Protocol: Document 10/13/23 14:23 LRN (Rec: 10/13/23 16:36 LRN [id number]) Pelvic Floor Assessment Pelvic Clock Pelvic Clock Other Tender at PF 3-5. Perineal Descent Resting Absent Bearing Present SEMG (uV) Baseline 1.9 Quick Contraction 6.1 10 Second Contraction 4.3 Recruitment Pattern Good Relaxation Fair Holding Fair Stability of Hold Poor/Slow SEMG Stability of Rest Fair Contraction Ability Manual Muscle Testing Left 2 Manual Muscle Testing Right 3 Manual Muscle Testing Anterior 3 Manual Muscle Testing Posterior 2 Comments Pelvic Floor Comments Pt hooklie with bolster under legs and arms by sides. Quick Flicks: 10 reps strength (uV's): avg work 4.0, avg rest 2.5. 20 reps strength (uV's): avg work 4.1, avg rest 2.5. Long Holds: 10 reps strength (uV's): avg work 6.1, avg rest 3.7. 20 reps strength (uV's): avg work 6.1, avg rest 3.6. PT-OP-J Posture/Palpation/Skin Start: 08/07/23 17:58 Freq: Status: Active Protocol: Document 08/11/23 08:21 LRN (Rec: 08/11/23 09:46 LRN [id number]) Posture Evaluation Position Standing Head/C-Spine Posture Neutral Position L-Spine Posture Increased Lordosis Shoulder Posture (L) Elevated Pelvis Posture Anteriorly Tilted Weight Distribution Balanced Knee Posture (L) Genu Valgus,(R) Genu Valgus Comments Posture Comments Decreased thoracic curvature. L PSIS is posterior. PT-OP-K Range of Motion Start: 08/07/23 17:58 Freq: Status: Active Protocol: Document 09/24/23 13:03 LRN (Rec: 09/24/23 13:57 LRN [id number]) Hip Goniometric Range of Motion Hip Right Passive Testing Position Supine Internal Rotation 60 External Rotation 75 Left Passive Testing Position Supine Internal Rotation 50 External Rotation 65 PT-OP-M Strength Start: 08/07/23 17:58 Freq: Status: Active Protocol: Document 08/11/23 08:21 LRN (Rec: 08/11/23 09:46 LRN [id number]) Trunk Strength Trunk Manual Muscle Testing Core Stabilization Pt is not able to maintain core stability with MMT of LE' s. Hip Strength Hip Manual Muscle Testing Right Flexion (L2) 5 Normal Extension (S1) 3 Fair Abduction 4- Good- Adduction 3 Fair External Rotation 3+ Fair+ Internal Rotation 4 Good Left Flexion (L2) 5 Normal Extension (S1) 3 Fair Abduction 3 Fair Adduction 3 Fair External Rotation 5 Normal Internal Rotation 5 Normal PT-OP-Q Treatments Start: 08/07/23 17:58 Freq: Status: Active Protocol: Document 10/13/23 14:23 LRN (Rec: 10/13/23 16:36 LRN [id number]) Therapeutic Exercises Supine Exercises Trunk Rot stretch Supine Exercise Name Trunk Rot stretch (knee roll to R). Side left Reps/Minutes 4' Hip IR/ER Supine Exercise Name Manual hip IR/ER stretch Side bilateral Reps/Minutes 3' Hip ER stretch Supine Exercise Name Fig 4 stretch Side bilateral Reps/Minutes 4' Happy Baby pose Supine Exercise Name Happy Baby Pose Reps/Minutes 2' Comments Cuing to breath through stretch. Manual Therapy Treatment Soft Tissue Mobilization PF Body Location PF stretch before & after PF contraction ex Mobilization Type Sustained Pressure Intensity/Depth Superficial to moderate Body Position Hooklying Neuro Re-Education Treatment Other Activities Vemg for PF awareness Details Vemg for ms relaxation after PF contractions of quick and long holds Reps/Duration 22' Comments Baseline, Quick contractions Long hold contractions Contractions sub max intensity to prevent lower ab pain. Self-Care/Home Management Treatment Education Other Education Discussed use of a wand for pt self stretch of PF at home. Held on issuing wand due to time contraints. PT-OP-T Assessment and Plan Start: 08/07/23 17:58 Freq: Status: Active Protocol: Document 10/13/23 14:23 LRN (Rec: 10/13/23 16:36 LRN [id number]) Physical Therapy Assessment Rehab Potential Rehabilitation Potential Good Evaluation Complexity Number of Personal Factors/Comorbidities 1-2 Number of Body Systems Impaired 4 or More Clinical Presentation at Evaluation Evolving Impairments Impairments Activity Tolerance,Pain, Posture,ROM,Soft Tissue Mobility,Strength,Transfers Goals Decreased PF strength & endurance Impairment Decreased PF strength (2-3/5) and endurance (2 sec hold) Short Term Goal (STG) Improve PF strength to 3/5 10/13/23: PF strength is 3/5 today except at posterior PF and R lateral wall at 6-8 of PF clock. Her PF strength is variable based on tightness. STG Duration 5 wks-11/20/23 progressing 10/13/23 Mcfp Goal (LTG) Improve PF endurance to hold 10 secs before fatigue. 10/13/23: Holds 3 secs prior to fatigue at a lower intensity to avoid lower abdominal pain. LTG Duration 10 wks-12/31/23 progressing 10/13/23 Three Impairment Stress urinary incontinence with lifting and sneezing. Short Term Goal (STG) Pt will be educated in core pressure management with transfers, ADLs, and exercise. 08/27/23: Pt educated in core pressure management w/ transfers. 09/03/23: Pt educated in core pressure management with ADLs, and exercise. STG Duration (09/03/23: MET GOAL) Mcfp Goal (LTG) Pt will be able to maintain urinary continence with lifting and sneezing. LTG Duration 10 wks-12/31/23 Two Impairment Urge urinary incontinence in the presence of a strong urge. Short Term Goal (STG) Pt will be educated in urge deference technique, proper fluid management (including hydration level norms) and bladder irritants. STG Duration (08/21/23: MET GOAL) Mcfp Goal (LTG) Pt will be able to maintain urinary continence in the presence of a strong urge. 09/03/23: At work is leaking, at home able to use delay technique to prevent urinary leakage. LTG Duration 10 wks-12/31/23 progressed 09/03/23 One Impairment Pt lacks an independent self care HEP. Short Term Goal (STG) Pt will be educated in vulvar/ perineal care & proper posturing in sit/stand. Education: Vulvar/perineal care and proper sit posture. 10/05/23: Pt Educated in proper stand/sit posture & handout issued. STG Duration (10/05/23: MET GOAL) Mcfp Goal (LTG) Pt will be independent in a self care HEP for PF/hip strengthening, hip ROM. 08/21/23: HEP: Deep breathing, LE roll in/outs w/ breath/Kegel, progressing to add one component at a timel. 08/27/23: HEP: Deep Breathing, Happy Baby Pose. Handout issued for transfers w /breath/PF. 09/24/23: I/S pt to focus on hip ER stretch (L>R) and trunk rot stretch on L side. LTG Duration 10 wks-12/31/23 progressed Assessment Summary Assessment 23 yo female who presents with mixed urinary incontinence with abdominal pain and a history of pelvic congestion. The pt has improved with ability to control her urinary leakage at home, but at work is not able to use the bathroom when an urge occurs; therefore she has urinary leakage at work. Her PF strength is improved and slightly improved with endurance, but limited improvement may be limited by onset of abdominal pain when she works at max PF contraction. She may need to work in less than max contractions; therefore hindering her ability to reach her goals requiring a longer rehab time. Her PUF score has improved from 24 to 18 indicating 75% likely +PST vs previously 91%. The pt will benefit from continued skilled physical therapy to work towards goals as indicated above. Physical Therapy Plan Frequency and Duration Frequency of Treatment 1x/Week Duration of treatment (weeks) 11 Plan of Care Start Date 10/13/23 Plan of Care End Date 12/31/23 Therapeutic Interventions Therapeutic Interventions Home Exercise Program,Joint Mobilizations,Manual Therapy, Self-Care/Home Management,Soft Tissue Mobilization,Taping, Therapeutic Activities, Therapeutic Exercises Modalities Biofeedback,Electric Stimulation Next Visit Focus/Plan Next Note Type Treatment Note Next Visit Plan Assess response to last E-Stim for previous PF relaxation after contraction. Next: Issue wand for pt self stretch of PF after strengthening. Training of PF relaxation with inhale breaths and after PF TrP treatment. Manual therapy: lower abdominal MFR, kidney mob, and LB STM. Neuro thao: PF relaxation after 50-90% PF contraction max and with Vemg exercises coordinating PF relaxation with breath after contraction. ?Might also end with EStim for relaxation of PF. Add: K-tape for abdominal relaxation. Exer: PF/hip strengthening, and aggrevator training ( lifting and sneezing). POC: Pt education, Manual therapy. ? Biofeedback with vaginal sensor. Therapeutic Exercises, Therapeutic Activities, Neuromuscular Reeducation.
--- NOTE | 2023-11-03 16:07 | PT.OTN ---
Current Diagnoses Muscle weakness (generalized) (11/03/23) Lower abdominal pain, unspecified (11/03/23) Unspecified urinary incontinence (11/03/23) Physical Therapy Treatment Note PT-OP-A Visit Information Start: 08/07/23 17:58 Freq: Status: Active Protocol: Document 11/03/23 14:37 LRN (Rec: 11/03/23 16:06 LRN [id number]) Out-Patient Physical Therapy Visit Information Visit Information Visit Type Treatment Note Visit Start Time 14:37 Visit Stop Time 15:21 Visit Number 44 Evaluation Information Evaluation Date 08/11/23 Precautions Precautions Back pain, Pelvic congestion history. PT-OP-B Current Condition Start: 08/07/23 17:58 Freq: Status: Active Protocol: Document 08/11/23 08:21 LRN (Rec: 08/11/23 09:46 LRN [id number]) Current Condition History of Current Condition Onset Date 06/2023 Current Complaints Urinary leakage if holding too long or doing light lifting mvmt, sneezing. History of Current Condition Sudden onset of urinary leakage, thought it was related to PF congestion, but was told there was no association. Pt has history of frequent UTI's until being given antibiotics as needed. She has not had UTI's with use of antibiotics. Pt states she is waiting for surgery at for her PF congestion. Orginally from [place], has spouse. Prior Treatments and Tests Dye test for reason for urinary tract infection (? intravenour pylegram) -2 yrs ago. Dye test for pelvic congestion (?venogram). Developmental History Developmental History Pt reports: Has pelvic congestion and is waiting for surgery; UTI's frequent 1x/month until started taking antibiotics, has not had infections. States infections after intercourse if not showering when camping. Treatment Goals Patient/Caregiver Goals Pt goal is: to be able to not have urgency , to not have urinary leakage with urgency to not have urinary leakage with lifting and sneezing. 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 PT-OP-C Subjective Start: 08/07/23 17:58 Freq: Status: Active Protocol: Document 11/03/23 14:37 LRN (Rec: 11/03/23 16:06 LRN [id number]) OP-PT Subjective Patient Comments Patient Comments No changes. Going to OBGYN to get opinion on surgery next week. Urinary leakage with lifting, sneezing coughing and urgency. PT-OP-I Pelvic Floor Start: 08/07/23 17:58 Freq: Status: Active Protocol: Document 10/13/23 14:23 LRN (Rec: 10/13/23 16:36 LRN [id number]) Pelvic Floor Assessment Pelvic Clock Pelvic Clock Other Tender at PF 3-5. Perineal Descent Resting Absent Bearing Present SEMG (uV) Baseline 1.9 Quick Contraction 6.1 10 Second Contraction 4.3 Recruitment Pattern Good Relaxation Fair Holding Fair Stability of Hold Poor/Slow SEMG Stability of Rest Fair Contraction Ability Manual Muscle Testing Left 2 Manual Muscle Testing Right 3 Manual Muscle Testing Anterior 3 Manual Muscle Testing Posterior 2 Comments Pelvic Floor Comments Pt hooklie with bolster under legs and arms by sides. Quick Flicks: 10 reps strength (uV's): avg work 4.0, avg rest 2.5. 20 reps strength (uV's): avg work 4.1, avg rest 2.5. Long Holds: 10 reps strength (uV's): avg work 6.1, avg rest 3.7. 20 reps strength (uV's): avg work 6.1, avg rest 3.6. PT-OP-J Posture/Palpation/Skin Start: 08/07/23 17:58 Freq: Status: Active Protocol: Document 08/11/23 08:21 LRN (Rec: 08/11/23 09:46 LRN [id number]) Posture Evaluation Position Standing Head/C-Spine Posture Neutral Position L-Spine Posture Increased Lordosis Shoulder Posture (L) Elevated Pelvis Posture Anteriorly Tilted Weight Distribution Balanced Knee Posture (L) Genu Valgus,(R) Genu Valgus Comments Posture Comments Decreased thoracic curvature. L PSIS is posterior. PT-OP-K Range of Motion Start: 08/07/23 17:58 Freq: Status: Active Protocol: Document 09/24/23 13:03 LRN (Rec: 09/24/23 13:57 LRN [id number]) Hip Goniometric Range of Motion Hip Right Passive Testing Position Supine Internal Rotation 60 External Rotation 75 Left Passive Testing Position Supine Internal Rotation 50 External Rotation 65 PT-OP-M Strength Start: 08/07/23 17:58 Freq: Status: Active Protocol: Document 08/11/23 08:21 LRN (Rec: 08/11/23 09:46 LRN [id number]) Trunk Strength Trunk Manual Muscle Testing Core Stabilization Pt is not able to maintain core stability with MMT of LE' s. Hip Strength Hip Manual Muscle Testing Right Flexion (L2) 5 Normal Extension (S1) 3 Fair Abduction 4- Good- Adduction 3 Fair External Rotation 3+ Fair+ Internal Rotation 4 Good Left Flexion (L2) 5 Normal Extension (S1) 3 Fair Abduction 3 Fair Adduction 3 Fair External Rotation 5 Normal Internal Rotation 5 Normal PT-OP-Q Treatments Start: 08/07/23 17:58 Freq: Status: Active Protocol: Document 11/03/23 14:37 LRN (Rec: 11/03/23 16:06 LRN [id number]) Therapeutic Exercises Supine Exercises Hip ER stretch Supine Exercise Name Fig 4 stretch Side bilateral Reps/Minutes 6' (2xL, 1xR) Happy Baby pose Supine Exercise Name Happy Baby Pose Reps/Minutes 3' Comments Cuing to breath through stretch. Prone Exercises HEATHER stretch Prone Exercise Name HEATHER stretch Reps/Minutes 4' Comments Cued to drop belly and ribs for stretch/relaxation Sitting Exercises Hip ER stretch Sitting Exercise Name Side-sit on leg in ER position . Side bilateral Reps/Minutes 6' (2xL, 1xR) Other Exercises Back stretch Other Exercise Name Child's Pose with abdominal stretch Reps/Minutes 4' Comments Cued to relax belly and hang w /inbreath. Manual Therapy Treatment Soft Tissue Mobilization PF Body Location PF stretch before & after PF E -stim for ms relaxation Mobilization Type Trigger Point Release Intensity/Depth Moderate Body Position Hooklying Comments Before EStim: Pelvic Clock 2-5 After EStim: Pelvic Clock 4, 5. Neuro Re-Education Treatment Other Activities Vemg for ms relaxation Details Vemg stim 7', 2' to don electrode Reps/Duration 7' Comments 10 on/10 off with PF relaxed 100pps Intensity 10 Self-Care/Home Management Treatment Education Other Education Briefly discussed POC and pt's plans next week with seeing a OBGYN regarding possible PF surgery for varicosity. Pt educated in use of wand for self stretching of PF for trP treatment. Activities Self-Care/Home Management Activities Issued wand for self PF stretching. I/S pt in HEP: Child's pose and HEATHER for abdominal relaxation. PT-OP-T Assessment and Plan Start: 08/07/23 17:58 Freq: Status: Active Protocol: Document 11/03/23 14:37 LRN (Rec: 11/03/23 16:06 LRN [id number]) Physical Therapy Assessment Goals Decreased PF strength & endurance Impairment Decreased PF strength (2-3/5) and endurance (2 sec hold) Short Term Goal (STG) Improve PF strength to 3/5 10/13/23: PF strength is 3/5 today except at posterior PF and R lateral wall at 6-8 of PF clock. Her PF strength is variable based on tightness. STG Duration 5 wks-11/20/23 progressing 10/13/23 Senior Care Goal (LTG) Improve PF endurance to hold 10 secs before fatigue. 10/13/23: Holds 3 secs prior to fatigue at a lower intensity to avoid lower abdominal pain. LTG Duration 10 wks-12/31/23 progressing 10/13/23 Three Impairment Stress urinary incontinence with lifting and sneezing. Short Term Goal (STG) Pt will be educated in core pressure management with transfers, ADLs, and exercise. 08/27/23: Pt educated in core pressure management w/ transfers. 09/03/23: Pt educated in core pressure management with ADLs, and exercise. STG Duration (09/03/23: MET GOAL) Industrial Equipment Wirer Goal (LTG) Pt will be able to maintain urinary continence with lifting and sneezing. LTG Duration 10 wks-12/31/23 Two Impairment Urge urinary incontinence in the presence of a strong urge. Short Term Goal (STG) Pt will be educated in urge deference technique, proper fluid management (including hydration level norms) and bladder irritants. STG Duration (08/21/23: MET GOAL) Industrial Equipment Wirer Goal (LTG) Pt will be able to maintain urinary continence in the presence of a strong urge. 09/03/23: At work is leaking, at home able to use delay technique to prevent urinary leakage. LTG Duration 10 wks-12/31/23 progressed 09/03/23 One Impairment Pt lacks an independent self care HEP. Short Term Goal (STG) Pt will be educated in vulvar/ perineal care & proper posturing in sit/stand. Education: Vulvar/perineal care and proper sit posture. 10/05/23: Pt Educated in proper stand/sit posture & handout issued. STG Duration (10/05/23: MET GOAL) Senior Care Goal (LTG) Pt will be independent in a self care HEP for PF/hip strengthening, hip ROM. 08/21/23: HEP: Deep breathing, LE roll in/outs w/ breath/Kegel, progressing to add one component at a timel. 08/27/23: HEP: Deep Breathing, Happy Baby Pose. Handout issued for transfers w /breath/PF. 09/24/23: I/S pt to focus on hip ER stretch (L>R) and trunk rot stretch on L side. 11/03/23: I/S pt in Child's Pose and HEATHER stretch. Issue Sm Wand for self PF stretching . LTG Duration 10 wks-12/31/23 progressed Assessment Summary Assessment 23 yo female with mixed urinary incontinence, abdominal pain and urgency if not able to void quickly enough, and a history of pelvic congestion. Pt appeared to have a + response to PF EStim for relaxation with report of decreased PF tenderness, w/o increase in abdominal pain. Today, after EStim for PF ms relaxation the pt had less active trP's in PF on L side, but had increased general tension or swelling of PF with tightness in the L lateral wall of PF. PT needs more abdominal tension release, and PF endurance working at sub max levels to minimize abdominal pain. Pt showed good understanding of wand for trP self treatment to PF. Physical Therapy Plan Frequency and Duration Frequency of Treatment 1x/Week Duration of treatment (weeks) 11 Plan of Care Start Date 10/13/23 Plan of Care End Date 12/31/23 Next Visit Focus/Plan Next Note Type Treatment Note Next Visit Plan Next: See results of [facility] visit. Assess pt use of wand for self PF trP and review issued HEP. Exer: L hip stretching ( piriformis, AD's), & aggrevator training (lifting and sneezing). Manual therapy: K-tape for abdominal relaxation after manual, lower abdominal MFR, kidney mob, and LB STM. Neuro thao: PF relaxation after 50-90% PF contraction max and with Vemg exercises coordinating PF relaxation with breath after contraction. ?Might end with EStim for relaxation of PF. EMG biofeedback for PF relaxation trng with inhale breaths and after PF TrP treatment, and PF endurance strengthening (if relaxation can be obtained between contractions). POC: Pt education, Manual therapy. ? Biofeedback with vaginal sensor. Therapeutic Exercises, Therapeutic Activities, Neuromuscular Reeducation.
--- NOTE | 2023-11-09 16:38 | PT.OTN ---
Current Diagnoses Muscle weakness (generalized) (11/09/23) Lower abdominal pain, unspecified (11/09/23) Unspecified urinary incontinence (11/09/23) Physical Therapy Treatment Note PT-OP-A Visit Information Start: 08/07/23 17:58 Freq: Status: Active Protocol: Document 11/09/23 13:02 LRN (Rec: 11/09/23 13:50 LRN [id number]) Out-Patient Physical Therapy Visit Information Visit Information Visit Type Treatment Note Visit Start Time 13:02 Visit Stop Time 13:46 Visit Number 12 Evaluation Information Evaluation Date 08/11/23 Precautions Precautions Back pain, Pelvic congestion history. PT-OP-B Current Condition Start: 08/07/23 17:58 Freq: Status: Active Protocol: Document 08/11/23 08:21 LRN (Rec: 08/11/23 09:46 LRN [id number]) Current Condition History of Current Condition Onset Date 06/2023 Current Complaints Urinary leakage if holding too long or doing light lifting mvmt, sneezing. History of Current Condition Sudden onset of urinary leakage, thought it was related to PF congestion, but was told there was no association. Pt has history of frequent UTI's until being given antibiotics as needed. She has not had UTI's with use of antibiotics. Pt states she is waiting for surgery at for her PF congestion. Orginally from [place], has spouse. Prior Treatments and Tests Dye test for reason for urinary tract infection (? intravenour pylegram) -2 yrs ago. Dye test for pelvic congestion (?venogram). Developmental History Developmental History Pt reports: Has pelvic congestion and is waiting for surgery; UTI's frequent 1x/month until started taking antibiotics, has not had infections. States infections after intercourse if not showering when camping. Treatment Goals Patient/Caregiver Goals Pt goal is: to be able to not have urgency , to not have urinary leakage with urgency to not have urinary leakage with lifting and sneezing. 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 PT-OP-C Subjective Start: 08/07/23 17:58 Freq: Status: Active Protocol: Document 11/09/23 13:02 LRN (Rec: 11/09/23 13:50 LRN [id number]) OP-PT Subjective Patient Comments Patient Comments Expecting period this weekend because getting tight and full /achy in lower abdomen, expect pain first 2 days of period. Hips are super tight because worked out 2 days ago. No change with leakage. Walked on TM 5' before and 15' after workout. Tried stretch x 1 this weekend. PT-OP-I Pelvic Floor Start: 08/07/23 17:58 Freq: Status: Active Protocol: Document 10/13/23 14:23 LRN (Rec: 10/13/23 16:36 LRN [id number]) Pelvic Floor Assessment Pelvic Clock Pelvic Clock Other Tender at PF 3-5. Perineal Descent Resting Absent Bearing Present SEMG (uV) Baseline 1.9 Quick Contraction 6.1 10 Second Contraction 4.3 Recruitment Pattern Good Relaxation Fair Holding Fair Stability of Hold Poor/Slow SEMG Stability of Rest Fair Contraction Ability Manual Muscle Testing Left 2 Manual Muscle Testing Right 3 Manual Muscle Testing Anterior 3 Manual Muscle Testing Posterior 2 Comments Pelvic Floor Comments Pt hooklie with bolster under legs and arms by sides. Quick Flicks: 10 reps strength (uV's): avg work 4.0, avg rest 2.5. 20 reps strength (uV's): avg work 4.1, avg rest 2.5. Long Holds: 10 reps strength (uV's): avg work 6.1, avg rest 3.7. 20 reps strength (uV's): avg work 6.1, avg rest 3.6. PT-OP-J Posture/Palpation/Skin Start: 08/07/23 17:58 Freq: Status: Active Protocol: Document 08/11/23 08:21 LRN (Rec: 08/11/23 09:46 LRN [id number]) Posture Evaluation Position Standing Head/C-Spine Posture Neutral Position L-Spine Posture Increased Lordosis Shoulder Posture (L) Elevated Pelvis Posture Anteriorly Tilted Weight Distribution Balanced Knee Posture (L) Genu Valgus,(R) Genu Valgus Comments Posture Comments Decreased thoracic curvature. L PSIS is posterior. PT-OP-K Range of Motion Start: 08/07/23 17:58 Freq: Status: Active Protocol: Document 09/24/23 13:03 LRN (Rec: 09/24/23 13:57 LRN [id number]) Hip Goniometric Range of Motion Hip Right Passive Testing Position Supine Internal Rotation 60 External Rotation 75 Left Passive Testing Position Supine Internal Rotation 50 External Rotation 65 PT-OP-M Strength Start: 08/07/23 17:58 Freq: Status: Active Protocol: Document 08/11/23 08:21 LRN (Rec: 08/11/23 09:46 LRN [id number]) Trunk Strength Trunk Manual Muscle Testing Core Stabilization Pt is not able to maintain core stability with MMT of LE' s. Hip Strength Hip Manual Muscle Testing Right Flexion (L2) 5 Normal Extension (S1) 3 Fair Abduction 4- Good- Adduction 3 Fair External Rotation 3+ Fair+ Internal Rotation 4 Good Left Flexion (L2) 5 Normal Extension (S1) 3 Fair Abduction 3 Fair Adduction 3 Fair External Rotation 5 Normal Internal Rotation 5 Normal PT-OP-Q Treatments Start: 08/07/23 17:58 Freq: Status: Active Protocol: Document 11/09/23 13:02 LRN (Rec: 11/09/23 13:50 LRN [id number]) Therapeutic Exercises Supine Exercises Hip ER stretch Supine Exercise Name Fig 4 stretch Side bilateral Reps/Minutes 6' (2xL, 1xR) Happy Baby pose Supine Exercise Name Happy Baby Pose Reps/Minutes 3' Comments Cuing to breath through stretch. Prone Exercises HEATHER stretch Prone Exercise Name HEATHER stretch - in different positions to prevent LBP with abdomen stretch Reps/Minutes 3' Comments Cued to drop belly and ribs for stretch/relaxation Sitting Exercises Hip ER ankle over knee Sitting Exercise Name Hip ER stretch Side bilateral Reps/Minutes 4' (2x L, 1x R) Hip ER stretch Sitting Exercise Name Side-sit on leg in ER position . Side bilateral Reps/Minutes 6' (2xL, 1xR) Other Exercises Back stretch Other Exercise Name Child's Pose with abdominal stretch Equipment Used Pillow under forearms. Reps/Minutes 4' Comments Cued to relax belly and hang w /inbreath. Manual Therapy Treatment Soft Tissue Mobilization Abdomen Body Location lower core for facial rocking in bladder/uterus region,& MFR w/deep breath Mobilization Type Myofascial Release Intensity/Depth Moderate Body Position Supine Taping Abdomen Body Location Abdomen Treatment Focus reduce tight feeling in abdomen. Type of Tape Kinesio Tape Skin Inspection Good Comments 4 Y-strips around umbilicus, Head anchored on L side lower abdomen, Head anchored on R side upper ribcage. Self-Care/Home Management Treatment Education Other Education Discussed pt was not able to be seen by [facility] at , and was rescheduled until January and is on a waitlist. PT-OP-T Assessment and Plan Start: 08/07/23 17:58 Freq: Status: Active Protocol: Document 11/09/23 13:02 LRN (Rec: 11/09/23 13:50 LRN [id number]) Physical Therapy Assessment Goals Decreased PF strength & endurance Impairment Decreased PF strength (2-3/5) and endurance (2 sec hold) Short Term Goal (STG) Improve PF strength to 3/5 10/13/23: PF strength is 3/5 today except at posterior PF and R lateral wall at 6-8 of PF clock. Her PF strength is variable based on tightness. STG Duration 5 wks-11/20/23 progressing 10/13/23 Halfway Goal (LTG) Improve PF endurance to hold 10 secs before fatigue. 10/13/23: Holds 3 secs prior to fatigue at a lower intensity to avoid lower abdominal pain. LTG Duration 10 wks-12/31/23 progressing 10/13/23 Three Impairment Stress urinary incontinence with lifting and sneezing. Short Term Goal (STG) Pt will be educated in core pressure management with transfers, ADLs, and exercise. 08/27/23: Pt educated in core pressure management w/ transfers. 09/03/23: Pt educated in core pressure management with ADLs, and exercise. STG Duration (09/03/23: MET GOAL) Halfway Goal (LTG) Pt will be able to maintain urinary continence with lifting and sneezing. LTG Duration 10 wks-12/31/23 Two Impairment Urge urinary incontinence in the presence of a strong urge. Short Term Goal (STG) Pt will be educated in urge deference technique, proper fluid management (including hydration level norms) and bladder irritants. STG Duration (08/21/23: MET GOAL) Halfway Goal (LTG) Pt will be able to maintain urinary continence in the presence of a strong urge. 09/03/23: At work is leaking, at home able to use delay technique to prevent urinary leakage. LTG Duration 10 wks-12/31/23 progressed 09/03/23 One Impairment Pt lacks an independent self care HEP. Short Term Goal (STG) Pt will be educated in vulvar/ perineal care & proper posturing in sit/stand. Education: Vulvar/perineal care and proper sit posture. 10/05/23: Pt Educated in proper stand/sit posture & handout issued. STG Duration (10/05/23: MET GOAL) Clinical Safety Specialist Goal (LTG) Pt will be independent in a self care HEP for PF/hip strengthening, hip ROM. 08/21/23: HEP: Deep breathing, LE roll in/outs w/ breath/Kegel, progressing to add one component at a timel. 08/27/23: HEP: Deep Breathing, Happy Baby Pose. Handout issued for transfers w /breath/PF. 09/24/23: I/S pt to focus on hip ER stretch (L>R) and trunk rot stretch on L side. 11/03/23: I/S pt in Child's Pose and HEATHER stretch. Issue Sm Wand for self PF stretching . LTG Duration 10 wks-12/31/23 progressed Assessment Summary Assessment 23 yo female with mixed urinary incontinence, abdominal pain and urgency if not able to void quickly enough, and a history of pelvic congestion. Pt will see OBGYN @ in JANUARY (appt TBD). Pt having feeling of fullness before period ( expecting tomorrow to start). Fair tolerance to MFR to abdomen; therefore applied K- tape for STM and to decrease swelling/edema. Physical Therapy Plan Frequency and Duration Frequency of Treatment 1x/Week Duration of treatment (weeks) 11 Plan of Care Start Date 10/13/23 Plan of Care End Date 12/31/23 Next Visit Focus/Plan Next Note Type Treatment Note Next Visit Plan Next: Assess pt's PF pain level with onset of period and response to K-tape after MFR to lower abdomen (might try abdominal relaxation). Assess pt use of wand for self PF trP. End with EStim for relaxation of PF. Manual therapy: lower abdominal MFR, kidney mob, and LB STM. Neuro thao: PF relaxation after 50-90% PF contraction max and with Vemg exercises coordinating PF relaxation with breath after contraction. EMG biofeedback for PF relaxation trng with inhale breaths and after PF TrP treatment, and PF endurance strengthening (if relaxation can be obtained between contractions). Exer: Aggrevator training ( lifting and sneezing). L hip stretching, mostly to be done at home: piriformis, AD's. POC: Pt education, Manual therapy. ? Biofeedback with vaginal sensor. Therapeutic Exercises, Therapeutic Activities, Neuromuscular Reeducation.27
--- NOTE | 2023-11-16 16:44 | PT.OTN ---
Current Diagnoses Muscle weakness (generalized) (11/16/23) Lower abdominal pain, unspecified (11/16/23) Unspecified urinary incontinence (11/16/23) Physical Therapy Treatment Note PT-OP-A Visit Information Start: 08/07/23 17:58 Freq: Status: Active Protocol: Document 11/16/23 13:01 LRN (Rec: 11/16/23 13:48 LRN [id number]) Out-Patient Physical Therapy Visit Information Visit Information Visit Type Treatment Note Visit Start Time 13:01 Visit Stop Time 13:43 Visit Number 13 Evaluation Information Evaluation Date 08/11/23 Precautions Precautions Back pain, Pelvic congestion history. PT-OP-B Current Condition Start: 08/07/23 17:58 Freq: Status: Active Protocol: Document 08/11/23 08:21 LRN (Rec: 08/11/23 09:46 LRN [id number]) Current Condition History of Current Condition Onset Date 06/2023 Current Complaints Urinary leakage if holding too long or doing light lifting mvmt, sneezing. History of Current Condition Sudden onset of urinary leakage, thought it was related to PF congestion, but was told there was no association. Pt has history of frequent UTI's until being given antibiotics as needed. She has not had UTI's with use of antibiotics. Pt states she is waiting for surgery at for her PF congestion. Orginally from [place], has spouse. Prior Treatments and Tests Dye test for reason for urinary tract infection (? intravenour pylegram) -2 yrs ago. Dye test for pelvic congestion (?venogram). Developmental History Developmental History Pt reports: Has pelvic congestion and is waiting for surgery; UTI's frequent 1x/month until started taking antibiotics, has not had infections. States infections after intercourse if not showering when camping. Treatment Goals Patient/Caregiver Goals Pt goal is: to be able to not have urgency , to not have urinary leakage with urgency to not have urinary leakage with lifting and sneezing. 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 PT-OP-C Subjective Start: 08/07/23 17:58 Freq: Status: Active Protocol: Document 11/16/23 13:01 LRN (Rec: 11/16/23 13:48 LRN [id number]) OP-PT Subjective Patient Comments Patient Comments Able to do squat ex with less pain. Sometimes bending over still has pain. Did hip stretches in waiting room. States she didn't notice much difference with K-tape and when removed was a little red. PT-OP-I Pelvic Floor Start: 08/07/23 17:58 Freq: Status: Active Protocol: Document 10/13/23 14:23 LRN (Rec: 10/13/23 16:36 LRN [id number]) Pelvic Floor Assessment Pelvic Clock Pelvic Clock Other Tender at PF 3-5. Perineal Descent Resting Absent Bearing Present SEMG (uV) Baseline 1.9 Quick Contraction 6.1 10 Second Contraction 4.3 Recruitment Pattern Good Relaxation Fair Holding Fair Stability of Hold Poor/Slow SEMG Stability of Rest Fair Contraction Ability Manual Muscle Testing Left 2 Manual Muscle Testing Right 3 Manual Muscle Testing Anterior 3 Manual Muscle Testing Posterior 2 Comments Pelvic Floor Comments Pt hooklie with bolster under legs and arms by sides. Quick Flicks: 10 reps strength (uV's): avg work 4.0, avg rest 2.5. 20 reps strength (uV's): avg work 4.1, avg rest 2.5. Long Holds: 10 reps strength (uV's): avg work 6.1, avg rest 3.7. 20 reps strength (uV's): avg work 6.1, avg rest 3.6. PT-OP-J Posture/Palpation/Skin Start: 08/07/23 17:58 Freq: Status: Active Protocol: Document 08/11/23 08:21 LRN (Rec: 08/11/23 09:46 LRN [id number]) Posture Evaluation Position Standing Head/C-Spine Posture Neutral Position L-Spine Posture Increased Lordosis Shoulder Posture (L) Elevated Pelvis Posture Anteriorly Tilted Weight Distribution Balanced Knee Posture (L) Genu Valgus,(R) Genu Valgus Comments Posture Comments Decreased thoracic curvature. L PSIS is posterior. PT-OP-K Range of Motion Start: 08/07/23 17:58 Freq: Status: Active Protocol: Document 09/24/23 13:03 LRN (Rec: 09/24/23 13:57 LRN [id number]) Hip Goniometric Range of Motion Hip Right Passive Testing Position Supine Internal Rotation 60 External Rotation 75 Left Passive Testing Position Supine Internal Rotation 50 External Rotation 65 PT-OP-M Strength Start: 08/07/23 17:58 Freq: Status: Active Protocol: Document 08/11/23 08:21 LRN (Rec: 08/11/23 09:46 LRN [id number]) Trunk Strength Trunk Manual Muscle Testing Core Stabilization Pt is not able to maintain core stability with MMT of LE' s. Hip Strength Hip Manual Muscle Testing Right Flexion (L2) 5 Normal Extension (S1) 3 Fair Abduction 4- Good- Adduction 3 Fair External Rotation 3+ Fair+ Internal Rotation 4 Good Left Flexion (L2) 5 Normal Extension (S1) 3 Fair Abduction 3 Fair Adduction 3 Fair External Rotation 5 Normal Internal Rotation 5 Normal PT-OP-Q Treatments Start: 08/07/23 17:58 Freq: Status: Active Protocol: Document 11/16/23 13:01 LRN (Rec: 11/16/23 13:48 LRN [id number]) Therapeutic Exercises Supine Exercises Happy Baby pose Supine Exercise Name Happy Baby Pose Reps/Minutes 3' Comments Cuing to breath through stretch. Manual Therapy Treatment Soft Tissue Mobilization Abdomen Body Location Lower abdomen lift (region of bladder and uterus), and distraction Mobilization Type Myofascial Release,Sustained Pressure Intensity/Depth Moderate Body Position Supine & standing Comments Sup: Hips on wedge for bladder/uterus region. Standing: Bent over plinth for abdominal distraction. Low Back Body Location L L3-L5 Mobilization Type Oscillations,Strumming Intensity/Depth Moderate Body Position Prone on pillows @ hips Comments Primarily at L3 SP & L facet L QL. PT-OP-T Assessment and Plan Start: 08/07/23 17:58 Freq: Status: Active Protocol: Document 11/16/23 13:01 LRN (Rec: 11/16/23 13:48 LRN [id number]) Physical Therapy Assessment Goals Decreased PF strength & endurance Impairment Decreased PF strength (2-3/5) and endurance (2 sec hold) Short Term Goal (STG) Improve PF strength to 3/5 10/13/23: PF strength is 3/5 today except at posterior PF and R lateral wall at 6-8 of PF clock. Her PF strength is variable based on tightness. STG Duration 5 wks-11/20/23 progressing 10/13/23 Intravenous Therapy Nurse Goal (LTG) Improve PF endurance to hold 10 secs before fatigue. 10/13/23: Holds 3 secs prior to fatigue at a lower intensity to avoid lower abdominal pain. LTG Duration 10 wks-12/31/23 progressing 10/13/23 Three Impairment Stress urinary incontinence with lifting and sneezing. Short Term Goal (STG) Pt will be educated in core pressure management with transfers, ADLs, and exercise. 08/27/23: Pt educated in core pressure management w/ transfers. 09/03/23: Pt educated in core pressure management with ADLs, and exercise. STG Duration (09/03/23: MET GOAL) Nursing Home Goal (LTG) Pt will be able to maintain urinary continence with lifting and sneezing. LTG Duration 10 wks-12/31/23 Two Impairment Urge urinary incontinence in the presence of a strong urge. Short Term Goal (STG) Pt will be educated in urge deference technique, proper fluid management (including hydration level norms) and bladder irritants. STG Duration (08/21/23: MET GOAL) Intravenous Therapy Nurse Goal (LTG) Pt will be able to maintain urinary continence in the presence of a strong urge. 09/03/23: At work is leaking, at home able to use delay technique to prevent urinary leakage. LTG Duration 10 wks-12/31/23 progressed 09/03/23 One Impairment Pt lacks an independent self care HEP. Short Term Goal (STG) Pt will be educated in vulvar/ perineal care & proper posturing in sit/stand. Education: Vulvar/perineal care and proper sit posture. 10/05/23: Pt Educated in proper stand/sit posture & handout issued. STG Duration (10/05/23: MET GOAL) Intravenous Therapy Nurse Goal (LTG) Pt will be independent in a self care HEP for PF/hip strengthening, hip ROM. 08/21/23: HEP: Deep breathing, LE roll in/outs w/ breath/Kegel, progressing to add one component at a timel. 08/27/23: HEP: Deep Breathing, Happy Baby Pose. Handout issued for transfers w /breath/PF. 09/24/23: I/S pt to focus on hip ER stretch (L>R) and trunk rot stretch on L side. 11/03/23: I/S pt in Child's Pose and HEATHER stretch. Issue Sm Wand for self PF stretching . LTG Duration 10 wks-12/31/23 progressed Assessment Summary Assessment 23 yo female with mixed urinary incontinence, abdominal pain and urgency if not able to void quickly enough, and a history of pelvic congestion. Pt felt not change in abdominal tightness with K-tape and she had a little onset of redness with tape. Pt felt more relaxed in abdominal region after MFR to abdomen and lower abdomen. Increased lower abdominal discomfort after Vemg biofeedback of PF contractions. Physical Therapy Plan Frequency and Duration Frequency of Treatment 1x/Week Duration of treatment (weeks) 11 Plan of Care Start Date 10/13/23 Plan of Care End Date 12/31/23 Next Visit Focus/Plan Next Note Type Treatment Note Next Visit Plan Pt will see OBZORANN @ in JANUARY (appt TBD). Next: Assess pt's PF & abdominal pain level with onset of period after today's manual therapy. Assess pt use of wand for self PF trP. End with EStim for relaxation of PF. Manual therapy: Cont lower abdominal MFR and LB STM, try kidney mob. Neuro thao: PF relaxation after 50-90% PF contraction max and with Vemg exercises coordinating PF relaxation with breath after contraction. EMG biofeedback for PF relaxation trng with inhale breaths and after PF TrP treatment, and PF endurance strengthening (if relaxation can be obtained between contractions). Exer: Aggrevator training ( lifting and sneezing). L hip stretching, mostly to be done at home: piriformis, AD's. POC: Pt education, Manual therapy. ? Biofeedback with vaginal sensor. Therapeutic Exercises, Therapeutic Activities, Neuromuscular Reeducation.27
--- NOTE | 2023-11-24 17:27 | PT.OTN ---
Current Diagnoses Muscle weakness (generalized) (11/24/23) Lower abdominal pain, unspecified (11/24/23) Unspecified urinary incontinence (11/24/23) Physical Therapy Treatment Note PT-OP-A Visit Information Start: 08/07/23 17:58 Freq: Status: Active Protocol: Document 11/24/23 07:32 LRN (Rec: 11/24/23 08:17 LRN [id number]) Out-Patient Physical Therapy Visit Information Visit Information Visit Type Treatment Note Visit Start Time 07:32 Visit Stop Time 08:13 Visit Number 14 Evaluation Information Evaluation Date 08/11/23 Precautions Precautions Back pain, Pelvic congestion history. PT-OP-B Current Condition Start: 08/07/23 17:58 Freq: Status: Active Protocol: Document 08/11/23 08:21 LRN (Rec: 08/11/23 09:46 LRN [id number]) Current Condition History of Current Condition Onset Date 06/2023 Current Complaints Urinary leakage if holding too long or doing light lifting mvmt, sneezing. History of Current Condition Sudden onset of urinary leakage, thought it was related to PF congestion, but was told there was no association. Pt has history of frequent UTI's until being given antibiotics as needed. She has not had UTI's with use of antibiotics. Pt states she is waiting for surgery at for her PF congestion. Orginally from [place], has spouse. Prior Treatments and Tests Dye test for reason for urinary tract infection (? intravenour pylegram) -2 yrs ago. Dye test for pelvic congestion (?venogram). Developmental History Developmental History Pt reports: Has pelvic congestion and is waiting for surgery; UTI's frequent 1x/month until started taking antibiotics, has not had infections. States infections after intercourse if not showering when camping. Treatment Goals Patient/Caregiver Goals Pt goal is: to be able to not have urgency , to not have urinary leakage with urgency to not have urinary leakage with lifting and sneezing. 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 PT-OP-C Subjective Start: 08/07/23 17:58 Freq: Status: Active Protocol: Document 11/24/23 07:32 LRN (Rec: 11/24/23 08:17 LRN [id number]) OP-PT Subjective Patient Comments Patient Comments Period started 2 days ago, first 3 days are tough. First day was in bed all day because of abdominal pain, laying on L side helped reduce the cramping (L ovary is the problem ovary), and ex didn't change the pain. Heat also helps. With start of period, abdominal pain was as painful as it normally is (no change w /last manual treatment). Abdominal pain was 9/10, now pain is 7.5/10, by end of day expect no pelvic pain. LBP started end of yesterday) is 8 /10 and by end of day expect it to go down to 3/10. Pelvic pain reduction, now LBP has increased. Cramping and bloating in the last couple of years have gotten bad. PT-OP-I Pelvic Floor Start: 08/07/23 17:58 Freq: Status: Active Protocol: Document 10/13/23 14:23 LRN (Rec: 10/13/23 16:36 LRN [id number]) Pelvic Floor Assessment Pelvic Clock Pelvic Clock Other Tender at PF 3-5. Perineal Descent Resting Absent Bearing Present SEMG (uV) Baseline 1.9 Quick Contraction 6.1 10 Second Contraction 4.3 Recruitment Pattern Good Relaxation Fair Holding Fair Stability of Hold Poor/Slow SEMG Stability of Rest Fair Contraction Ability Manual Muscle Testing Left 2 Manual Muscle Testing Right 3 Manual Muscle Testing Anterior 3 Manual Muscle Testing Posterior 2 Comments Pelvic Floor Comments Pt hooklie with bolster under legs and arms by sides. Quick Flicks: 10 reps strength (uV's): avg work 4.0, avg rest 2.5. 20 reps strength (uV's): avg work 4.1, avg rest 2.5. Long Holds: 10 reps strength (uV's): avg work 6.1, avg rest 3.7. 20 reps strength (uV's): avg work 6.1, avg rest 3.6. PT-OP-J Posture/Palpation/Skin Start: 08/07/23 17:58 Freq: Status: Active Protocol: Document 08/11/23 08:21 LRN (Rec: 08/11/23 09:46 LRN [id number]) Posture Evaluation Position Standing Head/C-Spine Posture Neutral Position L-Spine Posture Increased Lordosis Shoulder Posture (L) Elevated Pelvis Posture Anteriorly Tilted Weight Distribution Balanced Knee Posture (L) Genu Valgus,(R) Genu Valgus Comments Posture Comments Decreased thoracic curvature. L PSIS is posterior. PT-OP-K Range of Motion Start: 08/07/23 17:58 Freq: Status: Active Protocol: Document 09/24/23 13:03 LRN (Rec: 09/24/23 13:57 LRN [id number]) Hip Goniometric Range of Motion Hip Right Passive Testing Position Supine Internal Rotation 60 External Rotation 75 Left Passive Testing Position Supine Internal Rotation 50 External Rotation 65 PT-OP-M Strength Start: 08/07/23 17:58 Freq: Status: Active Protocol: Document 08/11/23 08:21 LRN (Rec: 08/11/23 09:46 LRN [id number]) Trunk Strength Trunk Manual Muscle Testing Core Stabilization Pt is not able to maintain core stability with MMT of LE' s. Hip Strength Hip Manual Muscle Testing Right Flexion (L2) 5 Normal Extension (S1) 3 Fair Abduction 4- Good- Adduction 3 Fair External Rotation 3+ Fair+ Internal Rotation 4 Good Left Flexion (L2) 5 Normal Extension (S1) 3 Fair Abduction 3 Fair Adduction 3 Fair External Rotation 5 Normal Internal Rotation 5 Normal PT-OP-Q Treatments Start: 08/07/23 17:58 Freq: Status: Active Protocol: Document 11/24/23 07:32 LRN (Rec: 11/24/23 08:17 LRN [id number]) Therapeutic Exercises Supine Exercises Happy Baby pose Supine Exercise Name Happy Baby Pose Reps/Minutes 3' Comments Cuing to breath through stretch. Other Exercises Back stretch Other Exercise Name Child's Pose with abdominal stretch Equipment Used Pillow under forearms. Reps/Minutes 4' Comments Cued to relax belly and hang w /inbreath. Manual Therapy Treatment Soft Tissue Mobilization Abdomen Body Location Lower abdomen lift (region of bladder and uterus), and distraction Mobilization Type Myofascial Release,Sustained Pressure Intensity/Depth Moderate Body Position Supine & standing Comments Hands/knees: abdoimnal distract/R side glide/CW rot Low Back Body Location L L3-L5 Mobilization Type Oscillations,Strumming Intensity/Depth Moderate Body Position Prone on pillows @ hips Comments Primarily at L3 SP & L facet L QL. PT-OP-T Assessment and Plan Start: 08/07/23 17:58 Freq: Status: Active Protocol: Document 11/24/23 07:32 LRN (Rec: 11/24/23 08:17 LRN [id number]) Physical Therapy Assessment Goals Decreased PF strength & endurance Impairment Decreased PF strength (2-3/5) and endurance (2 sec hold) Short Term Goal (STG) Improve PF strength to 3/5 10/13/23: PF strength is 3/5 today except at posterior PF and R lateral wall at 6-8 of PF clock. Her PF strength is variable based on tightness. STG Duration 5 wks-11/20/23 progressing 10/13/23 Maintenance Mechanic Technician Goal (LTG) Improve PF endurance to hold 10 secs before fatigue. 10/13/23: Holds 3 secs prior to fatigue at a lower intensity to avoid lower abdominal pain. LTG Duration 10 wks-12/31/23 progressing 10/13/23 Three Impairment Stress urinary incontinence with lifting and sneezing. Short Term Goal (STG) Pt will be educated in core pressure management with transfers, ADLs, and exercise. 08/27/23: Pt educated in core pressure management w/ transfers. 09/03/23: Pt educated in core pressure management with ADLs, and exercise. STG Duration (09/03/23: MET GOAL) Residential Goal (LTG) Pt will be able to maintain urinary continence with lifting and sneezing. LTG Duration 10 wks-12/31/23 Two Impairment Urge urinary incontinence in the presence of a strong urge. Short Term Goal (STG) Pt will be educated in urge deference technique, proper fluid management (including hydration level norms) and bladder irritants. STG Duration (08/21/23: MET GOAL) Maintenance Mechanic Technician Goal (LTG) Pt will be able to maintain urinary continence in the presence of a strong urge. 09/03/23: At work is leaking, at home able to use delay technique to prevent urinary leakage. LTG Duration 10 wks-12/31/23 progressed 09/03/23 One Impairment Pt lacks an independent self care HEP. Short Term Goal (STG) Pt will be educated in vulvar/ perineal care & proper posturing in sit/stand. Education: Vulvar/perineal care and proper sit posture. 10/05/23: Pt Educated in proper stand/sit posture & handout issued. STG Duration (10/05/23: MET GOAL) Maintenance Mechanic Technician Goal (LTG) Pt will be independent in a self care HEP for PF/hip strengthening, hip ROM. 08/21/23: HEP: Deep breathing, LE roll in/outs w/ breath/Kegel, progressing to add one component at a timel. 08/27/23: HEP: Deep Breathing, Happy Baby Pose. Handout issued for transfers w /breath/PF. 09/24/23: I/S pt to focus on hip ER stretch (L>R) and trunk rot stretch on L side. 11/03/23: I/S pt in Child's Pose and HEATHER stretch. Issue Sm Wand for self PF stretching . LTG Duration 10 wks-12/31/23 progressed Assessment Summary Assessment 23 yo female with mixed urinary incontinence, abdominal pain and urgency if not able to void quickly enough, and a history of pelvic congestion. Today lessening of abdominal discomfort after manual treatment with mild>mod release of L abdomen and LB. Pt deep breathing is limited/ ?restricted when having pain, possibly abdomen not able to expand as much due to the pain . Physical Therapy Plan Frequency and Duration Frequency of Treatment 1x/Week Duration of treatment (weeks) 11 Plan of Care Start Date 10/13/23 Plan of Care End Date 12/31/23 Next Visit Focus/Plan Next Note Type Treatment Note Next Visit Plan Pt will see OBNELSY @ in JANUARY (appt TBD). Pt to try soaking in warm bath water for abdominal pain. Next: Assess pt use of wand for self PF trP. For PF relaxation trng with inhale breaths and After PF TrP treatment, and PF endurance strengthening (if relaxation can be obtained between contractions), End with PF EStim for relaxation/EMG biofeedback of PF. Manual therapy: Cont lower abdominal MFR and LB STM, try kidney mob. cont abdominal and uterus mobs. Neuro thao: PF relaxation after 50-90% PF contraction max and with Vemg exercises coordinating PF relaxation with breath after contraction. Exer: Aggrevator training ( lifting and sneezing). L hip stretching, mostly to be done at home: piriformis, AD's. POC: Pt education, Manual therapy. ? Biofeedback with vaginal sensor. Therapeutic Exercises, Therapeutic Activities, Neuromuscular Reeducation.
--- NOTE | 2023-12-01 12:32 | PT.OTN ---
Current Diagnoses Muscle weakness (generalized) (12/01/23) Lower abdominal pain, unspecified (12/01/23) Unspecified urinary incontinence (12/01/23) Physical Therapy Treatment Note PT-OP-A Visit Information Start: 08/07/23 17:58 Freq: Status: Active Protocol: Document 12/01/23 11:19 LRN (Rec: 12/01/23 12:31 LRN [id number]) Out-Patient Physical Therapy Visit Information Visit Information Visit Type Treatment Note Visit Start Time 11:19 Visit Stop Time 12:03 Visit Number 15 Evaluation Information Evaluation Date 08/11/23 Precautions Precautions Back pain, Pelvic congestion history. PT-OP-B Current Condition Start: 08/07/23 17:58 Freq: Status: Active Protocol: Document 08/11/23 08:21 LRN (Rec: 08/11/23 09:46 LRN [id number]) Current Condition History of Current Condition Onset Date 06/2023 Current Complaints Urinary leakage if holding too long or doing light lifting mvmt, sneezing. History of Current Condition Sudden onset of urinary leakage, thought it was related to PF congestion, but was told there was no association. Pt has history of frequent UTI's until being given antibiotics as needed. She has not had UTI's with use of antibiotics. Pt states she is waiting for surgery at for her PF congestion. Orginally from [place], has spouse. Prior Treatments and Tests Dye test for reason for urinary tract infection (? intravenour pylegram) -2 yrs ago. Dye test for pelvic congestion (?venogram). Developmental History Developmental History Pt reports: Has pelvic congestion and is waiting for surgery; UTI's frequent 1x/month until started taking antibiotics, has not had infections. States infections after intercourse if not showering when camping. Treatment Goals Patient/Caregiver Goals Pt goal is: to be able to not have urgency , to not have urinary leakage with urgency to not have urinary leakage with lifting and sneezing. 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 PT-OP-C Subjective Start: 08/07/23 17:58 Freq: Status: Active Protocol: Document 12/01/23 11:19 LRN (Rec: 12/01/23 12:31 LRN [id number]) OP-PT Subjective Patient Comments Patient Comments Same amount as usual pain, LBP lasted 2 more days. If does too much the LB gets aggrevated. LBP is 3/10. States spending more time driving than in PT. PT-OP-I Pelvic Floor Start: 08/07/23 17:58 Freq: Status: Active Protocol: Document 10/13/23 14:23 LRN (Rec: 10/13/23 16:36 LRN [id number]) Pelvic Floor Assessment Pelvic Clock Pelvic Clock Other Tender at PF 3-5. Perineal Descent Resting Absent Bearing Present SEMG (uV) Baseline 1.9 Quick Contraction 6.1 10 Second Contraction 4.3 Recruitment Pattern Good Relaxation Fair Holding Fair Stability of Hold Poor/Slow SEMG Stability of Rest Fair Contraction Ability Manual Muscle Testing Left 2 Manual Muscle Testing Right 3 Manual Muscle Testing Anterior 3 Manual Muscle Testing Posterior 2 Comments Pelvic Floor Comments Pt hooklie with bolster under legs and arms by sides. Quick Flicks: 10 reps strength (uV's): avg work 4.0, avg rest 2.5. 20 reps strength (uV's): avg work 4.1, avg rest 2.5. Long Holds: 10 reps strength (uV's): avg work 6.1, avg rest 3.7. 20 reps strength (uV's): avg work 6.1, avg rest 3.6. PT-OP-J Posture/Palpation/Skin Start: 08/07/23 17:58 Freq: Status: Active Protocol: Document 08/11/23 08:21 LRN (Rec: 08/11/23 09:46 LRN [id number]) Posture Evaluation Position Standing Head/C-Spine Posture Neutral Position L-Spine Posture Increased Lordosis Shoulder Posture (L) Elevated Pelvis Posture Anteriorly Tilted Weight Distribution Balanced Knee Posture (L) Genu Valgus,(R) Genu Valgus Comments Posture Comments Decreased thoracic curvature. L PSIS is posterior. PT-OP-K Range of Motion Start: 08/07/23 17:58 Freq: Status: Active Protocol: Document 09/24/23 13:03 LRN (Rec: 09/24/23 13:57 LRN [id number]) Hip Goniometric Range of Motion Hip Right Passive Testing Position Supine Internal Rotation 60 External Rotation 75 Left Passive Testing Position Supine Internal Rotation 50 External Rotation 65 PT-OP-M Strength Start: 08/07/23 17:58 Freq: Status: Active Protocol: Document 08/11/23 08:21 LRN (Rec: 08/11/23 09:46 LRN [id number]) Trunk Strength Trunk Manual Muscle Testing Core Stabilization Pt is not able to maintain core stability with MMT of LE' s. Hip Strength Hip Manual Muscle Testing Right Flexion (L2) 5 Normal Extension (S1) 3 Fair Abduction 4- Good- Adduction 3 Fair External Rotation 3+ Fair+ Internal Rotation 4 Good Left Flexion (L2) 5 Normal Extension (S1) 3 Fair Abduction 3 Fair Adduction 3 Fair External Rotation 5 Normal Internal Rotation 5 Normal PT-OP-Q Treatments Start: 08/07/23 17:58 Freq: Status: Active Protocol: Document 12/01/23 11:19 LRN (Rec: 12/01/23 12:31 LRN [id number]) Therapeutic Exercises Supine Exercises Happy Baby pose Supine Exercise Name Happy Baby Pose Reps/Minutes 3' Comments Cuing to breath through stretch. Manual Therapy Treatment Soft Tissue Mobilization Iliopoas Body Location L Iliopsoas Release Mobilization Type Sustained Pressure Intensity/Depth Moderate Body Position Supine Comments Decrease in palpable discomfort of L Iliopsoas after mobiliization. Abdomen Body Location Lower abdomen lift (region of bladder and uterus), and distraction Mobilization Type Myofascial Release,Sustained Pressure Intensity/Depth Moderate Body Position Supine & standing Comments Forearm/knees: abdoimnal distract/R side glide/CW rot Low Back Body Location Jacinto lumbar paraspinals and upper gluteals Mobilization Type Myofascial Release,Strumming Intensity/Depth Moderate Body Position Child's pose Comments Note: L LB paraspinal ~L3 level is tender and swollen. Neuro Re-Education Treatment Other Activities Vemg for ms relaxation Details Contraction quick, 5 sec hold & 10 sec hold f/b quick relaxation Reps/Duration 13' Comments Pt able to use visual feedback to return to relaxation (~3.2 mVs) after contraction of ~10 mV's. With hip AD/AB assist contraction was ~15-20 mV's. PT-OP-T Assessment and Plan Start: 08/07/23 17:58 Freq: Status: Active Protocol: Document 12/01/23 11:19 LRN (Rec: 12/01/23 12:31 LRN [id number]) Physical Therapy Assessment Goals Decreased PF strength & endurance Impairment Decreased PF strength (2-3/5) and endurance (2 sec hold) Short Term Goal (STG) Improve PF strength to 3/5 10/13/23: PF strength is 3/5 today except at posterior PF and R lateral wall at 6-8 of PF clock. Her PF strength is variable based on tightness. STG Duration 5 wks-11/20/23 progressing 10/13/23 Mcc Goal (LTG) Improve PF endurance to hold 10 secs before fatigue. 10/13/23: Holds 3 secs prior to fatigue at a lower intensity to avoid lower abdominal pain. LTG Duration 10 wks-12/31/23 progressing 10/13/23 Three Impairment Stress urinary incontinence with lifting and sneezing. Short Term Goal (STG) Pt will be educated in core pressure management with transfers, ADLs, and exercise. 08/27/23: Pt educated in core pressure management w/ transfers. 09/03/23: Pt educated in core pressure management with ADLs, and exercise. STG Duration (09/03/23: MET GOAL) Mcc Goal (LTG) Pt will be able to maintain urinary continence with lifting and sneezing. LTG Duration 10 wks-12/31/23 Two Impairment Urge urinary incontinence in the presence of a strong urge. Short Term Goal (STG) Pt will be educated in urge deference technique, proper fluid management (including hydration level norms) and bladder irritants. STG Duration (08/21/23: MET GOAL) Mcc Goal (LTG) Pt will be able to maintain urinary continence in the presence of a strong urge. 09/03/23: At work is leaking, at home able to use delay technique to prevent urinary leakage. LTG Duration 10 wks-12/31/23 progressed 09/03/23 One Impairment Pt lacks an independent self care HEP. Short Term Goal (STG) Pt will be educated in vulvar/ perineal care & proper posturing in sit/stand. Education: Vulvar/perineal care and proper sit posture. 10/05/23: Pt Educated in proper stand/sit posture & handout issued. STG Duration (10/05/23: MET GOAL) Mcc Goal (LTG) Pt will be independent in a self care HEP for PF/hip strengthening, hip ROM. 08/21/23: HEP: Deep breathing, LE roll in/outs w/ breath/Kegel, progressing to add one component at a timel. 08/27/23: HEP: Deep Breathing, Happy Baby Pose. Handout issued for transfers w /breath/PF. 09/24/23: I/S pt to focus on hip ER stretch (L>R) and trunk rot stretch on L side. 11/03/23: I/S pt in Child's Pose and HEATHER stretch. Issue Sm Wand for self PF stretching . LTG Duration 10 wks-12/31/23 progressed Assessment Summary Assessment 23 yo female with mixed urinary incontinence, abdominal pain and urgency if not able to void quickly enough, and a history of pelvic congestion. Today + response to Iliopsoas release with decr pain on palpation. Per biofeedback pt was able to demonstrate ability to contract and quickly relax after initial cuing for deep breathing, w/o onset of lower abdominal pain. Physical Therapy Plan Frequency and Duration Frequency of Treatment 1x/Week Duration of treatment (weeks) 11 Plan of Care Start Date 10/13/23 Plan of Care End Date 12/31/23 Next Visit Focus/Plan Next Note Type Treatment Note Next Visit Plan Pt will see OBGYN @ in JANUARY (appt TBD). Pt to try soaking in warm bath water for abdominal pain. Next: Cont STM of LB & ABdomen Assess pt use of wand for self PF trP. For PF relaxation trng with inhale breaths and After PF TrP treatment, and PF endurance strengthening (if relaxation can be obtained between contractions), End with PF EStim for relaxation/EMG biofeedback of PF. Manual therapy: Cont lower abdominal MFR and LB STM, try kidney mob. cont abdominal and uterus mobs. Neuro thao: PF relaxation after 50-90% PF contraction max and with Vemg exercises coordinating PF relaxation with breath after contraction. Exer: Aggrevator training ( lifting and sneezing). L hip stretching, mostly to be done at home: piriformis, AD's. POC: Pt education, Manual therapy. ? Biofeedback with vaginal sensor. Therapeutic Exercises, Therapeutic Activities, Neuromuscular Reeducation.
--- NOTE | 2023-12-07 16:04 | PT.OTN ---
Current Diagnoses Muscle weakness (generalized) (12/07/23) Lower abdominal pain, unspecified (12/07/23) Unspecified urinary incontinence (12/07/23) Physical Therapy Treatment Note PT-OP-A Visit Information Start: 08/07/23 17:58 Freq: Status: Active Protocol: Document 12/07/23 09:02 LRN (Rec: 12/07/23 09:53 LRN [id number]) Out-Patient Physical Therapy Visit Information Visit Information Visit Type Treatment Note Visit Start Time 09:02 Visit Stop Time 09:58 Visit Number 26 Evaluation Information Evaluation Date 08/11/23 Precautions Precautions Back pain, Pelvic congestion history. PT-OP-B Current Condition Start: 08/07/23 17:58 Freq: Status: Active Protocol: Document 08/11/23 08:21 LRN (Rec: 08/11/23 09:46 LRN [id number]) Current Condition History of Current Condition Onset Date 06/2023 Current Complaints Urinary leakage if holding too long or doing light lifting mvmt, sneezing. History of Current Condition Sudden onset of urinary leakage, thought it was related to PF congestion, but was told there was no association. Pt has history of frequent UTI's until being given antibiotics as needed. She has not had UTI's with use of antibiotics. Pt states she is waiting for surgery at for her PF congestion. Orginally from [place], has spouse. Prior Treatments and Tests Dye test for reason for urinary tract infection (? intravenour pylegram) -2 yrs ago. Dye test for pelvic congestion (?venogram). Developmental History Developmental History Pt reports: Has pelvic congestion and is waiting for surgery; UTI's frequent 1x/month until started taking antibiotics, has not had infections. States infections after intercourse if not showering when camping. Treatment Goals Patient/Caregiver Goals Pt goal is: to be able to not have urgency , to not have urinary leakage with urgency to not have urinary leakage with lifting and sneezing. 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 PT-OP-C Subjective Start: 08/07/23 17:58 Freq: Status: Active Protocol: Document 12/07/23 09:02 LRN (Rec: 12/07/23 09:53 LRN [id number]) OP-PT Subjective Patient Comments Patient Comments Flare up in pelvic region w/ pain 6/10, started yesterday morning after returning from [place]. Back pain has remained the same throughout at 3/10 and is normally always 3/10. L lower abdomen is 4/10 after treatment. PT-OP-I Pelvic Floor Start: 08/07/23 17:58 Freq: Status: Active Protocol: Document 10/13/23 14:23 LRN (Rec: 10/13/23 16:36 LRN [id number]) Pelvic Floor Assessment Pelvic Clock Pelvic Clock Other Tender at PF 3-5. Perineal Descent Resting Absent Bearing Present SEMG (uV) Baseline 1.9 Quick Contraction 6.1 10 Second Contraction 4.3 Recruitment Pattern Good Relaxation Fair Holding Fair Stability of Hold Poor/Slow SEMG Stability of Rest Fair Contraction Ability Manual Muscle Testing Left 2 Manual Muscle Testing Right 3 Manual Muscle Testing Anterior 3 Manual Muscle Testing Posterior 2 Comments Pelvic Floor Comments Pt hooklie with bolster under legs and arms by sides. Quick Flicks: 10 reps strength (uV's): avg work 4.0, avg rest 2.5. 20 reps strength (uV's): avg work 4.1, avg rest 2.5. Long Holds: 10 reps strength (uV's): avg work 6.1, avg rest 3.7. 20 reps strength (uV's): avg work 6.1, avg rest 3.6. PT-OP-J Posture/Palpation/Skin Start: 08/07/23 17:58 Freq: Status: Active Protocol: Document 08/11/23 08:21 LRN (Rec: 08/11/23 09:46 LRN [id number]) Posture Evaluation Position Standing Head/C-Spine Posture Neutral Position L-Spine Posture Increased Lordosis Shoulder Posture (L) Elevated Pelvis Posture Anteriorly Tilted Weight Distribution Balanced Knee Posture (L) Genu Valgus,(R) Genu Valgus Comments Posture Comments Decreased thoracic curvature. L PSIS is posterior. PT-OP-K Range of Motion Start: 08/07/23 17:58 Freq: Status: Active Protocol: Document 09/24/23 13:03 LRN (Rec: 09/24/23 13:57 LRN [id number]) Hip Goniometric Range of Motion Hip Right Passive Testing Position Supine Internal Rotation 60 External Rotation 75 Left Passive Testing Position Supine Internal Rotation 50 External Rotation 65 PT-OP-M Strength Start: 08/07/23 17:58 Freq: Status: Active Protocol: Document 08/11/23 08:21 LRN (Rec: 08/11/23 09:46 LRN [id number]) Trunk Strength Trunk Manual Muscle Testing Core Stabilization Pt is not able to maintain core stability with MMT of LE' s. Hip Strength Hip Manual Muscle Testing Right Flexion (L2) 5 Normal Extension (S1) 3 Fair Abduction 4- Good- Adduction 3 Fair External Rotation 3+ Fair+ Internal Rotation 4 Good Left Flexion (L2) 5 Normal Extension (S1) 3 Fair Abduction 3 Fair Adduction 3 Fair External Rotation 5 Normal Internal Rotation 5 Normal PT-OP-Q Treatments Start: 08/07/23 17:58 Freq: Status: Active Protocol: Document 12/07/23 09:02 LRN (Rec: 12/07/23 09:53 [facility] [id number]) Therapeutic Exercises Supine Exercises Happy Baby pose Supine Exercise Name Happy Baby Pose Reps/Minutes 3' Comments Cuing to breath through stretch. Deep Breath (DB) Supine Exercise Name Deep Breath (6 sec breaths) Reps/Minutes 2' Comments Cuing for slow breaths and for full body relaxation/areas of tension Sitting Exercises LE seated lymph exs Sitting Exercise Name LE seated lymph ex (except inguinal node) Side bilateral Manual Therapy Treatment Soft Tissue Mobilization Iliopsoas Body Location Jacinto Ilipsoas Mobilization Type Myofascial Release,Sustained Pressure Body Position Supine on wedge Comments + response with less pain at L Iliopsoas at Iliacus Low Back Body Location Jacinto lumbar paraspinals: child' s pose and on wedge. Mobilization Type Myofascial Release,Strumming Intensity/Depth Moderate Body Position Child's pose Comments Note: L LB paraspinal ~L3 level is tender and swollen. Neuro Re-Education Treatment Other Activities Vemg for ms relaxation Details Contraction quick, 5 sec hold & 10 sec hold f/b quick relaxation Reps/Duration 10' Comments Pt work focusing on relaxation of PF. Self-Care/Home Management Treatment Activities Self-Care/Home Management Activities Issued & reviewed handout for LE seated lympedema ex's. PT-OP-T Assessment and Plan Start: 08/07/23 17:58 Freq: Status: Active Protocol: Document 12/07/23 09:02 LRN (Rec: 12/07/23 09:53 LRN [id number]) Physical Therapy Assessment Goals Decreased PF strength & endurance Impairment Decreased PF strength (2-3/5) and endurance (2 sec hold) Short Term Goal (STG) Improve PF strength to 3/5 10/13/23: PF strength is 3/5 today except at posterior PF and R lateral wall at 6-8 of PF clock. Her PF strength is variable based on tightness. STG Duration 5 wks-11/20/23 progressing 10/13/23 Fpc Goal (LTG) Improve PF endurance to hold 10 secs before fatigue. 10/13/23: Holds 3 secs prior to fatigue at a lower intensity to avoid lower abdominal pain. LTG Duration 10 wks-12/31/23 progressing 10/13/23 Three Impairment Stress urinary incontinence with lifting and sneezing. Short Term Goal (STG) Pt will be educated in core pressure management with transfers, ADLs, and exercise. 08/27/23: Pt educated in core pressure management w/ transfers. 09/03/23: Pt educated in core pressure management with ADLs, and exercise. STG Duration (09/03/23: MET GOAL) Cut Off Machine Helper Goal (LTG) Pt will be able to maintain urinary continence with lifting and sneezing. LTG Duration 10 wks-12/31/23 Two Impairment Urge urinary incontinence in the presence of a strong urge. Short Term Goal (STG) Pt will be educated in urge deference technique, proper fluid management (including hydration level norms) and bladder irritants. STG Duration (08/21/23: MET GOAL) Fpc Goal (LTG) Pt will be able to maintain urinary continence in the presence of a strong urge. 09/03/23: At work is leaking, at home able to use delay technique to prevent urinary leakage. LTG Duration 10 wks-12/31/23 progressed 09/03/23 One Impairment Pt lacks an independent self care HEP. Short Term Goal (STG) Pt will be educated in vulvar/ perineal care & proper posturing in sit/stand. Education: Vulvar/perineal care and proper sit posture. 10/05/23: Pt Educated in proper stand/sit posture & handout issued. STG Duration (03/04/24: MET GOAL) Cut Off Machine Helper Goal (LTG) Pt will be independent in a self care HEP for PF/hip strengthening, hip ROM. 08/21/23: HEP: Deep breathing, LE roll in/outs w/ breath/Kegel, progressing to add one component at a timel. 08/27/23: HEP: Deep Breathing, Happy Baby Pose. Handout issued for transfers w /breath/PF. 09/24/23: I/S pt to focus on hip ER stretch (L>R) and trunk rot stretch on L side. 11/03/23: I/S pt in Child's Pose and HEATHER stretch. Issue Sm Wand for self PF stretching . LTG Duration 10 wks-12/31/23 progressed Assessment Summary Assessment 23 yo female with mixed urinary incontinence, abdominal pain and urgency if not able to void quickly enough, and a history of pelvic congestion. Today, after discussion with Oralia Branch PT, lymphadema specialist, pt would be ok to do LE lymph ex's and massage and would be okay to wear lower leg compression stockings with travel. LE swelling problematic for venous return. L lower abdominal region is more tender and sore with ex, but decreased from 6/10 to 4/10 after manual LB/abdominal STM' s. Physical Therapy Plan Frequency and Duration Frequency of Treatment 1x/Week Duration of treatment (weeks) 11 Plan of Care Start Date 10/13/23 Plan of Care End Date 12/31/23 Next Visit Focus/Plan Next Note Type Progress Note Next Visit Plan Pt will see [facility] @ in JANUARY (appt TBD). Pt to try soaking in warm bath water for abdominal pain. Next: LE Lymph massage and ex ok if needed for swelling per discussion with Oralia Branch PT, lymphatic specialist due to swelling from venous return problems, but compression bandaging in area if arterial problem is not recommended. Assess PF strength and tendernness/tightness. Assess response to abdominal STM and resolution of LE swelling after traveling. Cont STM of LB & ABdomen Assess pt use of wand for self PF trP. For PF relaxation trng with inhale breaths and After PF TrP treatment, and PF endurance strengthening (if relaxation can be obtained between contractions), End with PF EStim for relaxation/ EMG biofeedback of PF. Manual therapy: Cont lower abdominal MFR and LB STM, try kidney mob. cont abdominal and uterus mobs. Neuro thao: PF relaxation after 50-90% PF contraction max and with Vemg exercises coordinating PF relaxation with breath after contraction. Exer: Aggrevator training ( lifting and sneezing). L hip stretching, mostly to be done at home: piriformis, AD's. POC: Pt education, Manual therapy. ? Biofeedback with vaginal sensor. Therapeutic Exercises, Therapeutic Activities, Neuromuscular Reeducation.
--- NOTE | 2023-12-14 16:02 | PT.OTN ---
Current Diagnoses Muscle weakness (generalized) (12/14/23) Lower abdominal pain, unspecified (12/14/23) Unspecified urinary incontinence (12/14/23) Physical Therapy Treatment Note PT-OP-A Visit Information Start: 08/07/23 17:58 Freq: Status: Active Protocol: Document 12/14/23 13:53 LRN (Rec: 12/14/23 14:40 LRN [id number]) Out-Patient Physical Therapy Visit Information Visit Information Visit Type Treatment Note Visit Note 7 after PN Visit Start Time 13:53 Visit Stop Time 14:43 Visit Number 17 Evaluation Information Evaluation Date 08/11/23 Precautions Precautions Back pain, Pelvic congestion history. PT-OP-B Current Condition Start: 08/07/23 17:58 Freq: Status: Active Protocol: Document 08/11/23 08:21 LRN (Rec: 08/11/23 09:46 LRN [id number]) Current Condition History of Current Condition Onset Date 06/2023 Current Complaints Urinary leakage if holding too long or doing light lifting mvmt, sneezing. History of Current Condition Sudden onset of urinary leakage, thought it was related to PF congestion, but was told there was no association. Pt has history of frequent UTI's until being given antibiotics as needed. She has not had UTI's with use of antibiotics. Pt states she is waiting for surgery at for her PF congestion. Orginally from [place], has spouse. Prior Treatments and Tests Dye test for reason for urinary tract infection (? intravenour pylegram) -2 yrs ago. Dye test for pelvic congestion (?venogram). Developmental History Developmental History Pt reports: Has pelvic congestion and is waiting for surgery; UTI's frequent 1x/month until started taking antibiotics, has not had infections. States infections after intercourse if not showering when camping. Treatment Goals Patient/Caregiver Goals Pt goal is: to be able to not have urgency , to not have urinary leakage with urgency to not have urinary leakage with lifting and sneezing. 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 PT-OP-C Subjective Start: 08/07/23 17:58 Freq: Status: Active Protocol: Document 12/14/23 13:53 LRN (Rec: 12/14/23 14:40 LRN [id number]) OP-PT Subjective Patient Comments Patient Comments Relief of LE swelling after last session. Pt reports internal LBP rated 3/10 remains consistent, pelvic pain reduced since last session. Pt wanting to discuss movement/exer recommendation to not make pelvic pain and LBP worse as related to and work requirements because she has decided to decline surgery at this time. PT-OP-I Pelvic Floor Start: 08/07/23 17:58 Freq: Status: Active Protocol: Document 10/13/23 14:23 LRN (Rec: 10/13/23 16:36 LRN [id number]) Pelvic Floor Assessment Pelvic Clock Pelvic Clock Other Tender at PF 3-5. Perineal Descent Resting Absent Bearing Present SEMG (uV) Baseline 1.9 Quick Contraction 6.1 10 Second Contraction 4.3 Recruitment Pattern Good Relaxation Fair Holding Fair Stability of Hold Poor/Slow SEMG Stability of Rest Fair Contraction Ability Manual Muscle Testing Left 2 Manual Muscle Testing Right 3 Manual Muscle Testing Anterior 3 Manual Muscle Testing Posterior 2 Comments Pelvic Floor Comments Pt hooklie with bolster under legs and arms by sides. Quick Flicks: 10 reps strength (uV's): avg work 4.0, avg rest 2.5. 20 reps strength (uV's): avg work 4.1, avg rest 2.5. Long Holds: 10 reps strength (uV's): avg work 6.1, avg rest 3.7. 20 reps strength (uV's): avg work 6.1, avg rest 3.6. PT-OP-J Posture/Palpation/Skin Start: 08/07/23 17:58 Freq: Status: Active Protocol: Document 08/11/23 08:21 LRN (Rec: 08/11/23 09:46 LRN [id number]) Posture Evaluation Position Standing Head/C-Spine Posture Neutral Position L-Spine Posture Increased Lordosis Shoulder Posture (L) Elevated Pelvis Posture Anteriorly Tilted Weight Distribution Balanced Knee Posture (L) Genu Valgus,(R) Genu Valgus Comments Posture Comments Decreased thoracic curvature. L PSIS is posterior. PT-OP-K Range of Motion Start: 08/07/23 17:58 Freq: Status: Active Protocol: Document 09/24/23 13:03 LRN (Rec: 09/24/23 13:57 LRN [id number]) Hip Goniometric Range of Motion Hip Right Passive Testing Position Supine Internal Rotation 60 External Rotation 75 Left Passive Testing Position Supine Internal Rotation 50 External Rotation 65 PT-OP-M Strength Start: 08/07/23 17:58 Freq: Status: Active Protocol: Document 08/11/23 08:21 LRN (Rec: 08/11/23 09:46 LRN [id number]) Trunk Strength Trunk Manual Muscle Testing Core Stabilization Pt is not able to maintain core stability with MMT of LE' s. Hip Strength Hip Manual Muscle Testing Right Flexion (L2) 5 Normal Extension (S1) 3 Fair Abduction 4- Good- Adduction 3 Fair External Rotation 3+ Fair+ Internal Rotation 4 Good Left Flexion (L2) 5 Normal Extension (S1) 3 Fair Abduction 3 Fair Adduction 3 Fair External Rotation 5 Normal Internal Rotation 5 Normal PT-OP-Q Treatments Start: 08/07/23 17:58 Freq: Status: Active Protocol: Document 12/14/23 13:53 LRN (Rec: 12/14/23 14:40 LRN [id number]) Therapeutic Exercises Supine Exercises Hip IR/ER Supine Exercise Name Hip IR/ER stretches ( Piriformis, ER stretch) Side bilateral Reps/Minutes 5' Happy Baby pose Supine Exercise Name Happy Baby Pose Reps/Minutes 3' Comments Cuing to breath through stretch. Manual Therapy Treatment Soft Tissue Mobilization Iliopsoas Body Location Jacinto Ilipsoas Mobilization Type Myofascial Release,Sustained Pressure Body Position Supine on wedge Comments + response with less pain at L Iliopsoas at Iliacus Iliopoas Mobilization Type Sustained Pressure Low Back Body Location Jacinto lumbar paraspinals: on wedge. Mobilization Type Myofascial Release,Strumming Intensity/Depth Moderate Body Position Child's pose Comments Note: L LB paraspinal ~L3 level is tender and swollen. Neuro Re-Education Treatment Other Activities Vemg for ms relaxation Details PF Contractions - quick: 5 sec hold, f/b 5 sec hold quick relaxation Reps/Duration 10' Comments Pt work focusing on relaxation of PF. On:Off is 5:5, 50pps, intensity is 10. Self-Care/Home Management Treatment Education Patient Education Safety Other Education Discussed with pt activities to avoid to deter increasing her pelvic congestion: No planks, No pushups, No jumping No lifting wgt where breath holding occurs, No declined walking, No prolonged sitting greater than 25 minutes or less than 25 minutes if having pelvic pain or LBP, No prolonged static standing > ~30 minutes or less than 25 minutes if having pelvic pain or LBP, Pt is probably okay for high intensity cardio on bike with wide seat, or rowing might be okay as long as she is not having pelvic pain or LBP, but recommend no running. PT-OP-T Assessment and Plan Start: 08/07/23 17:58 Freq: Status: Active Protocol: Document 12/14/23 13:53 LRN (Rec: 12/14/23 14:40 LRN [id number]) Physical Therapy Assessment Goals Decreased PF strength & endurance Impairment Decreased PF strength (2-3/5) and endurance (2 sec hold) Short Term Goal (STG) Improve PF strength to 3/5 10/13/23: PF strength is 3/5 today except at posterior PF and R lateral wall at 6-8 of PF clock. Her PF strength is variable based on tightness. STG Duration 5 wks-11/20/23 progressing 10/13/23 Data Entry Assistant Goal (LTG) Improve PF endurance to hold 10 secs before fatigue. 10/13/23: Holds 3 secs prior to fatigue at a lower intensity to avoid lower abdominal pain. LTG Duration 10 wks-12/31/23 progressing 10/13/23 Three Impairment Stress urinary incontinence with lifting and sneezing. Short Term Goal (STG) Pt will be educated in core pressure management with transfers, ADLs, and exercise. 08/27/23: Pt educated in core pressure management w/ transfers. 09/03/23: Pt educated in core pressure management with ADLs, and exercise. STG Duration (09/03/23: MET GOAL) Prison Goal (LTG) Pt will be able to maintain urinary continence with lifting and sneezing. LTG Duration 10 wks-12/31/23 Two Impairment Urge urinary incontinence in the presence of a strong urge. Short Term Goal (STG) Pt will be educated in urge deference technique, proper fluid management (including hydration level norms) and bladder irritants. STG Duration (08/21/23: MET GOAL) Data Entry Assistant Goal (LTG) Pt will be able to maintain urinary continence in the presence of a strong urge. 09/03/23: At work is leaking, at home able to use delay technique to prevent urinary leakage. LTG Duration 10 wks-12/31/23 progressed 09/03/23 One Impairment Pt lacks an independent self care HEP. Short Term Goal (STG) Pt will be educated in vulvar/ perineal care & proper posturing in sit/stand. Education: Vulvar/perineal care and proper sit posture. 10/05/23: Pt Educated in proper stand/sit posture & handout issued. STG Duration (10/05/23: MET GOAL) Data Entry Assistant Goal (LTG) Pt will be independent in a self care HEP for PF/hip strengthening, hip ROM. 08/21/23: HEP: Deep breathing, LE roll in/outs w/ breath/Kegel, progressing to add one component at a timel. 08/27/23: HEP: Deep Breathing, Happy Baby Pose. Handout issued for transfers w /breath/PF. 09/24/23: I/S pt to focus on hip ER stretch (L>R) and trunk rot stretch on L side. 11/03/23: I/S pt in Child's Pose and HEATHER stretch. Issue Sm Wand for self PF stretching . LTG Duration 10 wks-12/31/23 progressed Assessment Summary Assessment 23 yo female with mixed urinary incontinence, abdominal pain and urgency if not able to void quickly enough, and history of pelvic congestion. Today, pt had questions regarding recommended activities to avoid making pelvic pain and LBP worse; therefore a long discussion/education was had with pt on multiple activities recommended pt avoid due to increased core pressure and strain on back; activities making. and potentially making pelvic congestion and pelvic pain worse as well as exacerbating LBP. Pt is having + response to Vemg exer for quick contractions f/b quick relaxation to improve blood flow and reduce pelvic pain. Physical Therapy Plan Frequency and Duration Frequency of Treatment 1x/Week Duration of treatment (weeks) 11 Plan of Care Start Date 10/13/23 Plan of Care End Date 12/31/23 Next Visit Focus/Plan Next Note Type Progress Note Next Visit Plan Pt will see OBNELSY @ in JANUARY (appt TBD). Pt to try soaking in warm bath water for abdominal pain. Next: New POC needed due to next scheduled appt is 01/26/24 . Assess pt's response to ex of biking/rowing, LB STM, lumbar balancing, Vemg ex to improve PF circulation, and treatment for LE Lymph massage and ex ok if needed for swelling per discussion with Oralia Branch, PT, lymphatic specialist due to swelling from venous return problems, but compression bandaging in area if arterial problem is not recommended. Assess PF strength and tendernness/tightness. Assess response to abdominal STM and resolution of LE swelling after traveling. Cont STM of LB & ABdomen Assess pt use of wand for self PF trP. For PF relaxation trng with inhale breaths and After PF TrP treatment, and PF endurance strengthening (if relaxation can be obtained between contractions), End with PF EStim for relaxation/ EMG biofeedback of PF. Manual therapy: Cont lower abdominal MFR and LB STM, try kidney mob. cont abdominal and uterus mobs. Neuro thao: PF relaxation after 50-90% PF contraction max and with Vemg exercises coordinating PF relaxation with breath after contraction. Exer: Aggrevator training ( lifting and sneezing). L hip stretching, mostly to be done at home: piriformis, AD's. POC: Pt education, Manual therapy. ? Biofeedback with vaginal sensor. Therapeutic Exercises, Therapeutic Activities, Neuromuscular Reeducation.
--- NOTE | 2023-12-21 16:31 | PT.OTN ---
Current Diagnoses Muscle weakness (generalized) (12/21/23) Lower abdominal pain, unspecified (12/21/23) Unspecified urinary incontinence (12/21/23) Physical Therapy Treatment Note PT-OP-A Visit Information Start: 08/07/23 17:58 Freq: Status: Active Protocol: Document 12/21/23 09:10 LRN (Rec: 12/21/23 09:52 LRN [id number]) Out-Patient Physical Therapy Visit Information Visit Information Visit Type Treatment Note Visit Note 8 after PN Visit Start Time 09:10 Visit Stop Time 09:50 Visit Number 18 Evaluation Information Evaluation Date 08/11/23 Precautions Precautions Back pain, Pelvic congestion history. PT-OP-B Current Condition Start: 08/07/23 17:58 Freq: Status: Active Protocol: Document 08/11/23 08:21 LRN (Rec: 08/11/23 09:46 LRN [id number]) Current Condition History of Current Condition Onset Date 06/2023 Current Complaints Urinary leakage if holding too long or doing light lifting mvmt, sneezing. History of Current Condition Sudden onset of urinary leakage, thought it was related to PF congestion, but was told there was no association. Pt has history of frequent UTI's until being given antibiotics as needed. She has not had UTI's with use of antibiotics. Pt states she is waiting for surgery at for her PF congestion. Orginally from [place], has spouse. Prior Treatments and Tests Dye test for reason for urinary tract infection (? intravenour pylegram) -2 yrs ago. Dye test for pelvic congestion (?venogram). Developmental History Developmental History Pt reports: Has pelvic congestion and is waiting for surgery; UTI's frequent 1x/month until started taking antibiotics, has not had infections. States infections after intercourse if not showering when camping. Treatment Goals Patient/Caregiver Goals Pt goal is: to be able to not have urgency , to not have urinary leakage with urgency to not have urinary leakage with lifting and sneezing. 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 PT-OP-C Subjective Start: 08/07/23 17:58 Freq: Status: Active Protocol: Document 12/21/23 09:10 LRN (Rec: 12/21/23 09:52 LRN [id number]) OP-PT Subjective Patient Comments Patient Comments Period started yesterday, so back pain hasn't changed, 3/10 since not working (usually 5/ 10). Pelvic pain has been 6-7 /10 (usually 8/10). Hasn't had cramping until 3 yrs ago, but now having cramping like a justin horse and welling in vaginal region. Urinary leakage is the same. Leaks a little with squat & jumping. Ex while starting period causes abdominal cramping. States sometimes heat and sometimes ice works when applied to abdomen, no significant difference in one helping over the other. PT-OP-I Pelvic Floor Start: 08/07/23 17:58 Freq: Status: Active Protocol: Document 10/13/23 14:23 LRN (Rec: 10/13/23 16:36 LRN [id number]) Pelvic Floor Assessment Pelvic Clock Pelvic Clock Other Tender at PF 3-5. Perineal Descent Resting Absent Bearing Present SEMG (uV) Baseline 1.9 Quick Contraction 6.1 10 Second Contraction 4.3 Recruitment Pattern Good Relaxation Fair Holding Fair Stability of Hold Poor/Slow SEMG Stability of Rest Fair Contraction Ability Manual Muscle Testing Left 2 Manual Muscle Testing Right 3 Manual Muscle Testing Anterior 3 Manual Muscle Testing Posterior 2 Comments Pelvic Floor Comments Pt hooklie with bolster under legs and arms by sides. Quick Flicks: 10 reps strength (uV's): avg work 4.0, avg rest 2.5. 20 reps strength (uV's): avg work 4.1, avg rest 2.5. Long Holds: 10 reps strength (uV's): avg work 6.1, avg rest 3.7. 20 reps strength (uV's): avg work 6.1, avg rest 3.6. PT-OP-J Posture/Palpation/Skin Start: 08/07/23 17:58 Freq: Status: Active Protocol: Document 08/11/23 08:21 LRN (Rec: 08/11/23 09:46 LRN [id number]) Posture Evaluation Position Standing Head/C-Spine Posture Neutral Position L-Spine Posture Increased Lordosis Shoulder Posture (L) Elevated Pelvis Posture Anteriorly Tilted Weight Distribution Balanced Knee Posture (L) Genu Valgus,(R) Genu Valgus Comments Posture Comments Decreased thoracic curvature. L PSIS is posterior. PT-OP-K Range of Motion Start: 08/07/23 17:58 Freq: Status: Active Protocol: Document 09/24/23 13:03 LRN (Rec: 09/24/23 13:57 LRN [id number]) Hip Goniometric Range of Motion Hip Right Passive Testing Position Supine Internal Rotation 60 External Rotation 75 Left Passive Testing Position Supine Internal Rotation 50 External Rotation 65 PT-OP-M Strength Start: 08/07/23 17:58 Freq: Status: Active Protocol: Document 08/11/23 08:21 LRN (Rec: 08/11/23 09:46 LRN [id number]) Trunk Strength Trunk Manual Muscle Testing Core Stabilization Pt is not able to maintain core stability with MMT of LE' s. Hip Strength Hip Manual Muscle Testing Right Flexion (L2) 5 Normal Extension (S1) 3 Fair Abduction 4- Good- Adduction 3 Fair External Rotation 3+ Fair+ Internal Rotation 4 Good Left Flexion (L2) 5 Normal Extension (S1) 3 Fair Abduction 3 Fair Adduction 3 Fair External Rotation 5 Normal Internal Rotation 5 Normal PT-OP-Q Treatments Start: 08/07/23 17:58 Freq: Status: Active Protocol: Document 12/21/23 09:10 LRN (Rec: 12/21/23 09:52 LRN [id number]) Therapeutic Exercises Supine Exercises KTC stretch Supine Exercise Name Wedge: Gentle KTC due to being already on wedge Side bilateral Reps/Minutes 10 SH x 10 Sidelying Exercises Assisted Clamshell Sidelying Exercise Name L Sidelie Reps/Minutes 3' Comments Incr'd abdominal cramping in middle of abdomen Therapeutic Activity Therapeutic Activity Taking of HR Name HR attempted at feet: Palpation and with Oximeter Reps/Minutes 6' Comments Took many attempts to identify pulse in (mabel) feet. Not able to crop picker enough w/ palpation to identify HR. Oximeter attempted, but not able to crop picker pulse. Tingling in feet stopped after legs elevation decreased from ~60 deg's to ~30 deg's. Manual Therapy Treatment Soft Tissue Mobilization Abdomen Body Location Upper & checked lower abs. Most work on upper abs under ribcage, middle. Mobilization Type Strumming,Trigger Point Release Intensity/Depth Superficial Body Position Supine legs on bolster Comments Pt taught self TrP to diaphragm and upper ab, in upper middle of each side. PT-OP-T Assessment and Plan Start: 08/07/23 17:58 Freq: Status: Active Protocol: Document 12/21/23 09:10 LRN (Rec: 12/21/23 09:52 LRN [id number]) Physical Therapy Assessment Goals Decreased PF strength & endurance Impairment Decreased PF strength (2-3/5) and endurance (2 sec hold) Short Term Goal (STG) Improve PF strength to 3/5 10/13/23: PF strength is 3/5 today except at posterior PF and R lateral wall at 6-8 of PF clock. Her PF strength is variable based on tightness. STG Duration 5 wks-11/20/23 progressing 10/13/23 Group Home Goal (LTG) Improve PF endurance to hold 10 secs before fatigue. 10/13/23: Holds 3 secs prior to fatigue at a lower intensity to avoid lower abdominal pain. LTG Duration 10 wks-12/31/23 progressing 10/13/23 Three Impairment Stress urinary incontinence with lifting and sneezing. Short Term Goal (STG) Pt will be educated in core pressure management with transfers, ADLs, and exercise. 08/27/23: Pt educated in core pressure management w/ transfers. 09/03/23: Pt educated in core pressure management with ADLs, and exercise. STG Duration (09/03/23: MET GOAL) Group Home Goal (LTG) Pt will be able to maintain urinary continence with lifting and sneezing. LTG Duration 10 wks-12/31/23 Two Impairment Urge urinary incontinence in the presence of a strong urge. Short Term Goal (STG) Pt will be educated in urge deference technique, proper fluid management (including hydration level norms) and bladder irritants. STG Duration (08/21/23: MET GOAL) Group Home Goal (LTG) Pt will be able to maintain urinary continence in the presence of a strong urge. 09/03/23: At work is leaking, at home able to use delay technique to prevent urinary leakage. LTG Duration 10 wks-12/31/23 progressed 09/03/23 One Impairment Pt lacks an independent self care HEP. Short Term Goal (STG) Pt will be educated in vulvar/ perineal care & proper posturing in sit/stand. Education: Vulvar/perineal care and proper sit posture. 10/05/23: Pt Educated in proper stand/sit posture & handout issued. STG Duration (10/05/23: MET GOAL) Group Home Goal (LTG) Pt will be independent in a self care HEP for PF/hip strengthening, hip ROM. 08/21/23: HEP: Deep breathing, LE roll in/outs w/ breath/Kegel, progressing to add one component at a timel. 08/27/23: HEP: Deep Breathing, Happy Baby Pose. Handout issued for transfers w /breath/PF. 09/24/23: I/S pt to focus on hip ER stretch (L>R) and trunk rot stretch on L side. 11/03/23: I/S pt in Child's Pose and HEATHER stretch. Issue Sm Wand for self PF stretching . 12/21/23: I/S pt in self STM & trP release under most distal ribs. LTG Duration 10 wks-12/31/23 progressed Assessment Summary Assessment 23 yo female with mixed urinary incontinence, abdominal pain and urgency if not able to void quickly enough, and history of pelvic congestion. Today pt able to provide self TrP relief to L side of abdomen, below diaphragm (L easier than R) laterally. Swelling palpated in L lower abs. Tingling in feet when elevated and on wedge, reduced with lowering of legs, pulse in mabel feet could not be found via palpation on L foot and weak pulse in R foot, but temp/ color of feet was symmetrically mildly cold bilterally and coloration normal. Good understanding of self TrP treatment to diaphragm. No change in abdominal pain after treatment . Physical Therapy Plan Frequency and Duration Frequency of Treatment 1x/Week Duration of treatment (weeks) 11 Plan of Care Start Date 10/13/23 Plan of Care End Date 12/31/23 Next Visit Focus/Plan Next Note Type Progress Note Next Visit Plan Pt will see OBNELSY @ in JANUARY (appt TBD). Pt to try soaking in warm bath water for abdominal pain. Next: POC needed due to scheduled appt is 01/26/24 ( after current POC date). Assess pt's response to ex of biking/rowing in clinic; LB STM, lumbar balancing, Vemg ex to improve PF circulation, and treatment for LE Lymph massage and ex ok if needed for swelling per discussion with Oralia Branch, PT, lymphatic specialist due to swelling from venous return problems, but compression bandaging in area if arterial problem is not recommended. Assess PF strength and tendernness/tightness. Assess response to abdominal STM and resolution of LE swelling after traveling. Cont STM of LB & ABdomen Assess pt use of wand for self PF trP. For PF relaxation trng with inhale breaths and After PF TrP treatment, and PF endurance strengthening (if relaxation can be obtained between contractions), End with PF EStim for relaxation/ EMG biofeedback of PF. Manual therapy: Cont lower abdominal MFR and LB STM, try kidney mob. cont abdominal and uterus mobs. Neuro thao: PF relaxation after 50-90% PF contraction max and with Vemg exercises coordinating PF relaxation with breath after contraction. Exer: Aggrevator training ( lifting and sneezing). L hip stretching, mostly to be done at home: piriformis, AD's. POC: Pt education, Manual therapy. ? Biofeedback with vaginal sensor. Therapeutic Exercises, Therapeutic Activities, Neuromuscular Reeducation.
--- NOTE | 2023-12-25 16:18 | PT.OTN ---
Current Diagnoses Muscle weakness (generalized) (12/25/23) Lower abdominal pain, unspecified (12/25/23) Unspecified urinary incontinence (12/25/23) Physical Therapy Treatment Note PT-OP-A Visit Information Start: 08/07/23 17:58 Freq: Status: Active Protocol: Document 12/25/23 13:05 LRN (Rec: 12/25/23 13:51 LRN [id number]) Out-Patient Physical Therapy Visit Information Visit Information Visit Type Treatment Note Visit Note 9 after PN. Visit Start Time 13:05 Visit Stop Time 13:58 Visit Number / Evaluation Information Evaluation Date 08/11/23 Precautions Precautions Back pain, Pelvic congestion history. PT-OP-B Current Condition Start: 08/07/23 17:58 Freq: Status: Active Protocol: Document 08/11/23 08:21 LRN (Rec: 08/11/23 09:46 LRN [id number]) Current Condition History of Current Condition Onset Date 06/2023 Current Complaints Urinary leakage if holding too long or doing light lifting mvmt, sneezing. History of Current Condition Sudden onset of urinary leakage, thought it was related to PF congestion, but was told there was no association. Pt has history of frequent UTI's until being given antibiotics as needed. She has not had UTI's with use of antibiotics. Pt states she is waiting for surgery at for her PF congestion. Orginally from [place], has spouse. Prior Treatments and Tests Dye test for reason for urinary tract infection (? intravenour pylegram) -2 yrs ago. Dye test for pelvic congestion (?venogram). Developmental History Developmental History Pt reports: Has pelvic congestion and is waiting for surgery; UTI's frequent 1x/month until started taking antibiotics, has not had infections. States infections after intercourse if not showering when camping. Treatment Goals Patient/Caregiver Goals Pt goal is: to be able to not have urgency , to not have urinary leakage with urgency to not have urinary leakage with lifting and sneezing. 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 PT-OP-C Subjective Start: 08/07/23 17:58 Freq: Status: Active Protocol: Document 12/25/23 13:05 LRN (Rec: 12/25/23 13:51 LRN [id number]) OP-PT Subjective Patient Comments Patient Comments Did walking in gym after last session and had no change with pain. Period is over, No pelvic pain, LBP is 2-3/10 ( normal achiness). PT-OP-I Pelvic Floor Start: 08/07/23 17:58 Freq: Status: Active Protocol: Document 12/25/23 13:05 LRN (Rec: 12/25/23 13:51 LRN [id number]) Pelvic Floor Assessment Pelvic Clock Pelvic Clock 12-3 Hypertonic,Tenderness, Tightness Pelvic Clock 3-6 Tenderness,Tightness Pelvic Clock 6-9 Tenderness,Tightness Pelvic Clock 9-12 Tenderness,Tightness Pelvic Clock Other Tender more at 3, 6 and 7. Contraction Ability Voluntary Contraction Moderate Voluntary Relaxation Absent Manual Muscle Testing Left 3 Manual Muscle Testing Right 3 Manual Muscle Testing Anterior 3 Manual Muscle Testing Posterior 3 Muscle Endurance (Seconds) 3 Number of Quick Contractions In 10 7 Seconds PT-OP-J Posture/Palpation/Skin Start: 08/07/23 17:58 Freq: Status: Active Protocol: Document 08/11/23 08:21 LRN (Rec: 08/11/23 09:46 LRN [id number]) Posture Evaluation Position Standing Head/C-Spine Posture Neutral Position L-Spine Posture Increased Lordosis Shoulder Posture (L) Elevated Pelvis Posture Anteriorly Tilted Weight Distribution Balanced Knee Posture (L) Genu Valgus,(R) Genu Valgus Comments Posture Comments Decreased thoracic curvature. L PSIS is posterior. PT-OP-K Range of Motion Start: 08/07/23 17:58 Freq: Status: Active Protocol: Document 09/24/23 13:03 LRN (Rec: 09/24/23 13:57 LRN [id number]) Hip Goniometric Range of Motion Hip Right Passive Testing Position Supine Internal Rotation 60 External Rotation 75 Left Passive Testing Position Supine Internal Rotation 50 External Rotation 65 PT-OP-M Strength Start: 08/07/23 17:58 Freq: Status: Active Protocol: Document 08/11/23 08:21 LRN (Rec: 08/11/23 09:46 LRN [id number]) Trunk Strength Trunk Manual Muscle Testing Core Stabilization Pt is not able to maintain core stability with MMT of LE' s. Hip Strength Hip Manual Muscle Testing Right Flexion (L2) 5 Normal Extension (S1) 3 Fair Abduction 4- Good- Adduction 3 Fair External Rotation 3+ Fair+ Internal Rotation 4 Good Left Flexion (L2) 5 Normal Extension (S1) 3 Fair Abduction 3 Fair Adduction 3 Fair External Rotation 5 Normal Internal Rotation 5 Normal PT-OP-Q Treatments Start: 08/07/23 17:58 Freq: Status: Active Protocol: Document 12/25/23 13:05 LRN (Rec: 12/25/23 13:51 LRN [id number]) Therapeutic Exercises Supine Exercises Positional lower ab decompression Supine Exercise Name Deep Breathing/supine on wedge for lower abdominal decompression from PF Reps/Minutes 10' Comments Pt reporting relief of PF pain from 10 to 0/10. Happy Baby pose Supine Exercise Name Happy Baby Pose Reps/Minutes 3' Comments Cuing to breath through stretch. Kegel-long hold Supine Exercise Name Kegel long hold Reps/Minutes 10 SH x 2 Comments MMT Kegel - quick Supine Exercise Name Kegel Quick hold Reps/Minutes Contractions 10 secs x 2 Comments MMT Manual Therapy Treatment Soft Tissue Mobilization Abdomen Body Location Lift of lower PF and R under ribs Mobilization Type Sustained Pressure,Trigger Point Release Neuro Re-Education Treatment Other Activities Vemg for ms relaxation Details PF Contractions - quick: 5 sec hold, f/b 10 sec relaxation Reps/Duration 10' + 3' don/doff electrode and set up Comments Pt working on relaxation of PF . On:Off is 5:10, 50pps, intensity is 10. PT-OP-T Assessment and Plan Start: 08/07/23 17:58 Freq: Status: Active Protocol: Document 12/25/23 13:05 LRN (Rec: 12/25/23 13:51 [facility] [id number]) Physical Therapy Assessment Rehab Potential Rehabilitation Potential Good Evaluation Complexity Number of Personal Factors/Comorbidities 1-2 Number of Body Systems Impaired 4 or More Clinical Presentation at Evaluation Evolving Impairments Impairments Activity Tolerance,Pain, Posture,ROM,Soft Tissue Mobility,Strength,Transfers Goals Decreased PF strength & endurance Impairment Decreased PF strength (2-3/5) and endurance (2 sec hold) Short Term Goal (STG) Improve PF strength to 3/5 10/13/23: PF strength is 3/5 today except at posterior PF and R lateral wall at 6-8 of PF clock. Her PF strength is variable based on tightness. : PF strength 3/5. STG Duration (12/25/23: MET GOAL) Machine Assembler Goal (LTG) Improve PF endurance to hold 10 secs before fatigue and pt able to relax the PF after contraction. 10/13/23: Holds 3 secs prior to fatigue at a lower intensity to avoid lower abdominal pain. 12/25/23: Endurance hold is 10 secs but pt is not able to relax the PF after contraction w/o doing a reverse Kegel. LTG Duration 13 wks-03/29/24 progressing 12/25/23 Three Impairment Stress urinary incontinence with lifting and sneezing. Short Term Goal (STG) Pt will be educated in core pressure management with transfers, ADLs, and exercise. 08/27/23: Pt educated in core pressure management w/ transfers. 09/03/23: Pt educated in core pressure management with ADLs, and exercise. STG Duration (09/03/23: MET GOAL) Machine Assembler Goal (LTG) Pt will be able to maintain urinary continence with lifting and sneezing. LTG Duration 13 wks-03/29/24 Two Impairment Urge urinary incontinence in the presence of a strong urge. Short Term Goal (STG) Pt will be educated in urge deference technique, proper fluid management (including hydration level norms) and bladder irritants. STG Duration (08/21/23: MET GOAL) Shelter Goal (LTG) Pt will be able to maintain urinary continence in the presence of a strong urge. 09/03/23: At work is leaking, at home able to use delay technique to prevent urinary leakage. 12/25/23: Leaking a little with urgency. When gets the urgency, the urination time is 8-10 sec. mostly leakage with jumping, sneezing squatting/bending over. LTG Duration 13 wks-03/29/24 progressing 12/25/23 One Impairment Pt lacks an independent self care HEP. Short Term Goal (STG) Pt will be educated in vulvar/ perineal care & proper posturing in sit/stand. Education: Vulvar/perineal care and proper sit posture. 10/05/23: Pt Educated in proper stand/sit posture & handout issued. STG Duration (10/05/23: MET GOAL) Shelter Goal (LTG) Pt will be independent in a self care HEP for PF/hip strengthening, hip ROM. 08/21/23: HEP: Deep breathing, LE roll in/outs w/ breath/Kegel, progressing to add one component at a timel. 08/27/23: HEP: Deep Breathing, Happy Baby Pose. Handout issued for transfers w /breath/PF. 09/24/23: I/S pt to focus on hip ER stretch (L>R) and trunk rot stretch on L side. 11/03/23: I/S pt in Child's Pose and HEATHER stretch. Issue Sm Wand for self PF stretching . 12/21/23: I/S pt in self STM & trP release under most distal ribs. LTG Duration 13 wks-03/29/24 progressed Assessment Summary Assessment 23 yo female w/mixed urinary incontinence, abdominal pain and urgency if not able to void quickly; history of pelvic congestion. Today with ending of her period her PF pain is 1/10 (reduced to 0/ 10 after positional decompression) and LBP back to normal of 2-3/10. No change in pt's pelvic pain with ex in her gym (biking/rowing). Tightness was present in abdomen with tenderness of R diaphragm at lower ribs; improved R lateral trunk expansion w/breathe after stretching, indicating gain of relaxation of diaphragm and R trunk rotators/lateral trunk . Pt is doing self stretching of PF at home, and appears appropriate. Physical Therapy Plan Frequency and Duration Frequency of Treatment 1x/Week Duration of treatment (weeks) 13 Plan of Care Start Date 12/25/23 Plan of Care End Date 03/29/24 Therapeutic Interventions Therapeutic Interventions Home Exercise Program,Joint Mobilizations,Manual Therapy, Self-Care/Home Management,Soft Tissue Mobilization,Taping, Therapeutic Activities, Therapeutic Exercises Modalities Biofeedback,Electric Stimulation Next Visit Focus/Plan Next Note Type Treatment Note Next Visit Plan Pt will see OBGYN @ in JANUARY (appt TBD). Pt to try soaking in warm bath water for abdominal pain. Next: PUF. treatment for LE Lymph massage and ex ok if needed for swelling per discussion with Oralia Branch, PT, lymphatic specialist to improve PF circulation ( compression bandaging in area if arterial problem is not recommended). Manual therapy: OI manual stretch. Cont lower abdominal MFR and LB STM, try kidney mob. cont abdominal and uterus mobs. ?LB/abdomen STM, lumbar balancing, Manual: L hip stretching, mostly to be done at home: piriformis, AD's. Cont Vemg ex Assess PF strength and tendernness/ tightness. PF relaxation trng with inhale breaths and After PF TrP treatment, PF endurance strengthening (if relaxation can be obtained between contractions), End with PF EStim for relaxation/EMG biofeedback of PF. Neuro thao: PF relaxation after 50-90% PF contraction max and with Vemg exercises coordinating PF relaxation with breath after contraction. Exer: Aggrevator training ( lifting and sneezing). POC: Pt education, Manual therapy. ? Biofeedback with vaginal sensor. Therapeutic Exercises, Therapeutic Activities, Neuromuscular Reeducation.
--- NOTE | 2024-01-07 16:04 | PT.OTN ---
Current Diagnoses Muscle weakness (generalized) (01/07/24) Lower abdominal pain, unspecified (01/07/24) Unspecified urinary incontinence (01/07/24) Physical Therapy Treatment Note PT-OP-A Visit Information Start: 08/07/23 17:58 Freq: Status: Active Protocol: Document 01/07/24 13:02 LRN (Rec: 01/07/24 13:48 LRN [id number]) Out-Patient Physical Therapy Visit Information Visit Information Visit Type Progress Note Visit Note 1 after PN. Visit Start Time 13:02 Visit Stop Time 13:51 Visit Number 3/ Evaluation Information Evaluation Date 08/11/23 Precautions Precautions Back pain, Pelvic congestion history. PT-OP-B Current Condition Start: 08/07/23 17:58 Freq: Status: Active Protocol: Document 08/11/23 08:21 LRN (Rec: 08/11/23 09:46 LRN [id number]) Current Condition History of Current Condition Onset Date 06/2023 Current Complaints Urinary leakage if holding too long or doing light lifting mvmt, sneezing. History of Current Condition Sudden onset of urinary leakage, thought it was related to PF congestion, but was told there was no association. Pt has history of frequent UTI's until being given antibiotics as needed. She has not had UTI's with use of antibiotics. Pt states she is waiting for surgery at for her PF congestion. Orginally from [place], has spouse. Prior Treatments and Tests Dye test for reason for urinary tract infection (? intravenour pylegram) -2 yrs ago. Dye test for pelvic congestion (?venogram). Developmental History Developmental History Pt reports: Has pelvic congestion and is waiting for surgery; UTI's frequent 1x/month until started taking antibiotics, has not had infections. States infections after intercourse if not showering when camping. Treatment Goals Patient/Caregiver Goals Pt goal is: to be able to not have urgency , to not have urinary leakage with urgency to not have urinary leakage with lifting and sneezing. 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 Next wed is OBGYN appt at (01/13/24). Patient Questionnaires Pelvic Pain and Urgency/Frequency Patient Symptom Scale Pelvic Pain Score 26 OP-PT Pain Assessment Pain Assessment Grid Paper Pain Assessment Grid Completed No Location L low back Pain Location Details L low back Intensity 3 Scale Used Numeric (0 - 10) Description- Other Pain reduced after treatment to 2/10 PT-OP-I Pelvic Floor Start: 08/07/23 17:58 Freq: Status: Active Protocol: Document 12/25/23 13:05 LRN (Rec: 12/25/23 13:51 LRN [id number]) Pelvic Floor Assessment Pelvic Clock Pelvic Clock 12-3 Hypertonic,Tenderness, Tightness Pelvic Clock 3-6 Tenderness,Tightness Pelvic Clock 6-9 Tenderness,Tightness Pelvic Clock 9-12 Tenderness,Tightness Pelvic Clock Other Tender more at 3, 6 and 7. Contraction Ability Voluntary Contraction Moderate Voluntary Relaxation Absent Manual Muscle Testing Left 3 Manual Muscle Testing Right 3 Manual Muscle Testing Anterior 3 Manual Muscle Testing Posterior 3 Muscle Endurance (Seconds) 3 Number of Quick Contractions In 10 7 Seconds PT-OP-J Posture/Palpation/Skin Start: 08/07/23 17:58 Freq: Status: Active Protocol: Document 08/11/23 08:21 LRN (Rec: 08/11/23 09:46 LRN [id number]) Posture Evaluation Position Standing Head/C-Spine Posture Neutral Position L-Spine Posture Increased Lordosis Shoulder Posture (L) Elevated Pelvis Posture Anteriorly Tilted Weight Distribution Balanced Knee Posture (L) Genu Valgus,(R) Genu Valgus Comments Posture Comments Decreased thoracic curvature. L PSIS is posterior. PT-OP-K Range of Motion Start: 08/07/23 17:58 Freq: Status: Active Protocol: Document 09/24/23 13:03 LRN (Rec: 09/24/23 13:57 LRN [id number]) Hip Goniometric Range of Motion Hip Right Passive Testing Position Supine Internal Rotation 60 External Rotation 75 Left Passive Testing Position Supine Internal Rotation 50 External Rotation 65 PT-OP-M Strength Start: 08/07/23 17:58 Freq: Status: Active Protocol: Document 08/11/23 08:21 LRN (Rec: 08/11/23 09:46 LRN [id number]) Trunk Strength Trunk Manual Muscle Testing Core Stabilization Pt is not able to maintain core stability with MMT of LE' s. Hip Strength Hip Manual Muscle Testing Right Flexion (L2) 5 Normal Extension (S1) 3 Fair Abduction 4- Good- Adduction 3 Fair External Rotation 3+ Fair+ Internal Rotation 4 Good Left Flexion (L2) 5 Normal Extension (S1) 3 Fair Abduction 3 Fair Adduction 3 Fair External Rotation 5 Normal Internal Rotation 5 Normal PT-OP-Q Treatments Start: 08/07/23 17:58 Freq: Status: Active Protocol: Document 01/07/24 13:02 LRN (Rec: 01/07/24 13:48 LRN [id number]) Therapeutic Exercises Supine Exercises Happy Baby pose Supine Exercise Name Happy Baby Pose Reps/Minutes 3' Comments Cuing to breath through stretch. Manual Therapy Treatment Soft Tissue Mobilization Abdomen Body Location Lift of lower PF and TrP release under R lower ribs Mobilization Type Sustained Pressure,Trigger Point Release Intensity/Depth Moderate Body Position Supine legs on bolster Neuro Re-Education Treatment Other Activities Vemg for ms relaxation Details PF Contractions - quick: 5 sec hold, f/b 10 sec relaxation Reps/Duration 10' + 3' don/doff electrode and set up Comments Pt working on relaxation of PF . On:Off is 5:10, 50pps, intensity is 13. Self-Care/Home Management Treatment Activities Self-Care/Home Management Activities I/S pt to do home stretch today: CHild's pose, Sphinx, & Thread the Needle stretch. PT-OP-T Assessment and Plan Start: 08/07/23 17:58 Freq: Status: Active Protocol: Document 01/07/24 13:02 LRN (Rec: 01/07/24 13:48 LRN [id number]) Physical Therapy Assessment Goals Decreased PF strength & endurance Impairment Decreased PF strength (2-3/5) and endurance (2 sec hold) Short Term Goal (STG) Improve PF strength to 3/5 10/13/23: PF strength is 3/5 today except at posterior PF and R lateral wall at 6-8 of PF clock. Her PF strength is variable based on tightness. : PF strength 3/5. STG Duration (12/25/23: MET GOAL) Molder Floor Goal (LTG) Improve PF endurance to hold 10 secs before fatigue and pt able to relax the PF after contraction. 10/13/23: Holds 3 secs prior to fatigue at a lower intensity to avoid lower abdominal pain. 12/25/23: Endurance hold is 10 secs but pt is not able to relax the PF after contraction w/o doing a reverse Kegel. LTG Duration 13 wks-03/29/24 progressing 12/25/23 Three Impairment Stress urinary incontinence with lifting and sneezing. Short Term Goal (STG) Pt will be educated in core pressure management with transfers, ADLs, and exercise. 08/27/23: Pt educated in core pressure management w/ transfers. 09/03/23: Pt educated in core pressure management with ADLs, and exercise. STG Duration (09/03/23: MET GOAL) Molder Floor Goal (LTG) Pt will be able to maintain urinary continence with lifting and sneezing. LTG Duration 13 wks-03/29/24 Two Impairment Urge urinary incontinence in the presence of a strong urge. Short Term Goal (STG) Pt will be educated in urge deference technique, proper fluid management (including hydration level norms) and bladder irritants. STG Duration (08/21/23: MET GOAL) Molder Floor Goal (LTG) Pt will be able to maintain urinary continence in the presence of a strong urge. 09/03/23: At work is leaking, at home able to use delay technique to prevent urinary leakage. 12/25/23: Leaking a little with urgency. When gets the urgency, the urination time is 8-10 sec. mostly leakage with jumping, sneezing squatting/bending over. LTG Duration 13 wks-03/29/24 progressing 12/25/23 One Impairment Pt lacks an independent self care HEP. Short Term Goal (STG) Pt will be educated in vulvar/ perineal care & proper posturing in sit/stand. Education: Vulvar/perineal care and proper sit posture. 10/05/23: Pt Educated in proper stand/sit posture & handout issued. STG Duration (10/05/23: MET GOAL) Molder Floor Goal (LTG) Pt will be independent in a self care HEP for PF/hip strengthening, hip ROM. 08/21/23: HEP: Deep breathing, LE roll in/outs w/ breath/Kegel, progressing to add one component at a timel. 08/27/23: HEP: Deep Breathing, Happy Baby Pose. Handout issued for transfers w /breath/PF. 09/24/23: I/S pt to focus on hip ER stretch (L>R) and trunk rot stretch on L side. 11/03/23: I/S pt in Child's Pose and HEATHER stretch. Issue Sm Wand for self PF stretching . 12/21/23: I/S pt in self STM & trP release under most distal ribs. LTG Duration 13 wks-03/29/24 progressed Assessment Summary Assessment 23 yo female w/mixed urinary incontinence, abdominal pain and urgency if not able to void quickly; history of pelvic congestion. Today per PUF score she is worse at 26 (initially 24), her L low back pain is usually 5/10 but today is 3/10 reduced to 2/10 after treatment. Her PF pain is 0/10 now that she is not on her period; during her period pain is usually 8/10, sometimes 6-7/10. Pt urinary leakage persists. Pt will see OBZORANN @ 01/13/24. Physical Therapy Plan Frequency and Duration Frequency of Treatment 1x/Week Duration of treatment (weeks) 13 Plan of Care Start Date 12/25/23 Plan of Care End Date 03/29/24 Next Visit Focus/Plan Next Note Type Treatment Note Next Visit Plan Pt will see OBGYN @ in JANUARY 12. Pt to try soaking in warm bath water for abdominal pain. Next: Treatment for LE Lymph massage and ex. Manual therapy: OI manual stretch, add LB manual STM, try kidney mob. Lumbar balancing. Manual: L hip stretching, mostly to be done at home: piriformis, AD's. Lower abdominal MFR and LB STM Cont Vemg ex Assess PF strength and tendernness/ tightness. PF relaxation trng with inhale breaths and After PF TrP treatment, PF endurance strengthening (if relaxation can be obtained between contractions), End with PF EStim for relaxation training/EMG biofeedback of PF. Neuro thao: PF relaxation after 50-90% PF contraction max and with Vemg exercises coordinating PF relaxation with breath after contraction. Exer: Aggrevator training ( lifting and sneezing). POC: Pt education, Manual therapy. ? Biofeedback with vaginal sensor. Therapeutic Exercises, Therapeutic Activities, Neuromuscular Reeducation. LE lymphatic massage and ex is ok if needed for swelling per discussion with Oralia Branch, PT, lymphatic specialist to improve PF circulation ( compression bandaging in area if arterial problem is not recommended).
--- NOTE | 2024-01-12 10:54 | PT.OTN ---
Current Diagnoses Muscle weakness (generalized) (01/12/24) Lower abdominal pain, unspecified (01/12/24) Unspecified urinary incontinence (01/12/24) Physical Therapy Treatment Note PT-OP-A Visit Information Start: 08/07/23 17:58 Freq: Status: Active Protocol: Document 01/12/24 09:34 LRN (Rec: 01/12/24 10:46 LRN [id number]) Out-Patient Physical Therapy Visit Information Visit Information Visit Type Treatment Note Visit Note 2 after PN. Visit Start Time 09:34 Visit Stop Time 10:31 Visit Number 11/12 Evaluation Information Evaluation Date 08/11/23 Precautions Precautions Back pain, Pelvic congestion history. PT-OP-B Current Condition Start: 08/07/23 17:58 Freq: Status: Active Protocol: Document 08/11/23 08:21 LRN (Rec: 08/11/23 09:46 LRN [id number]) Current Condition History of Current Condition Onset Date 06/2023 Current Complaints Urinary leakage if holding too long or doing light lifting mvmt, sneezing. History of Current Condition Sudden onset of urinary leakage, thought it was related to PF congestion, but was told there was no association. Pt has history of frequent UTI's until being given antibiotics as needed. She has not had UTI's with use of antibiotics. Pt states she is waiting for surgery at for her PF congestion. Orginally from [place], has spouse. Prior Treatments and Tests Dye test for reason for urinary tract infection (? intravenour pylegram) -2 yrs ago. Dye test for pelvic congestion (?venogram). Developmental History Developmental History Pt reports: Has pelvic congestion and is waiting for surgery; UTI's frequent 1x/month until started taking antibiotics, has not had infections. States infections after intercourse if not showering when camping. Treatment Goals Patient/Caregiver Goals Pt goal is: to be able to not have urgency , to not have urinary leakage with urgency to not have urinary leakage with lifting and sneezing. 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 PT-OP-C Subjective Start: 08/07/23 17:58 Freq: Status: Active Protocol: Document 01/12/24 09:34 LRN (Rec: 01/12/24 10:46 LRN [id number]) OP-PT Subjective Patient Comments Patient Comments Seeing OBZORANN tomorrow. After last treatment she was looser in abdomen but LBP remained the same at 3/10, LBP never changes. Besides urgency ( same), her level of incontinence is better, she can now squat without leakaing . High intensity activity ( jumping, running) she still leaks a little. PT-OP-I Pelvic Floor Start: 08/07/23 17:58 Freq: Status: Active Protocol: Document 12/25/23 13:05 LRN (Rec: 12/25/23 13:51 LRN [id number]) Pelvic Floor Assessment Pelvic Clock Pelvic Clock 12-3 Hypertonic,Tenderness, Tightness Pelvic Clock 3-6 Tenderness,Tightness Pelvic Clock 6-9 Tenderness,Tightness Pelvic Clock 9-12 Tenderness,Tightness Pelvic Clock Other Tender more at 3, 6 and 7. Contraction Ability Voluntary Contraction Moderate Voluntary Relaxation Absent Manual Muscle Testing Left 3 Manual Muscle Testing Right 3 Manual Muscle Testing Anterior 3 Manual Muscle Testing Posterior 3 Muscle Endurance (Seconds) 3 Number of Quick Contractions In 10 7 Seconds PT-OP-J Posture/Palpation/Skin Start: 08/07/23 17:58 Freq: Status: Active Protocol: Document 08/11/23 08:21 LRN (Rec: 08/11/23 09:46 LRN [id number]) Posture Evaluation Position Standing Head/C-Spine Posture Neutral Position L-Spine Posture Increased Lordosis Shoulder Posture (L) Elevated Pelvis Posture Anteriorly Tilted Weight Distribution Balanced Knee Posture (L) Genu Valgus,(R) Genu Valgus Comments Posture Comments Decreased thoracic curvature. L PSIS is posterior. PT-OP-K Range of Motion Start: 08/07/23 17:58 Freq: Status: Active Protocol: Document 09/24/23 13:03 LRN (Rec: 09/24/23 13:57 LRN [id number]) Hip Goniometric Range of Motion Hip Right Passive Testing Position Supine Internal Rotation 60 External Rotation 75 Left Passive Testing Position Supine Internal Rotation 50 External Rotation 65 PT-OP-M Strength Start: 08/07/23 17:58 Freq: Status: Active Protocol: Document 08/11/23 08:21 LRN (Rec: 08/11/23 09:46 LRN [id number]) Trunk Strength Trunk Manual Muscle Testing Core Stabilization Pt is not able to maintain core stability with MMT of LE' s. Hip Strength Hip Manual Muscle Testing Right Flexion (L2) 5 Normal Extension (S1) 3 Fair Abduction 4- Good- Adduction 3 Fair External Rotation 3+ Fair+ Internal Rotation 4 Good Left Flexion (L2) 5 Normal Extension (S1) 3 Fair Abduction 3 Fair Adduction 3 Fair External Rotation 5 Normal Internal Rotation 5 Normal PT-OP-Q Treatments Start: 08/07/23 17:58 Freq: Status: Active Protocol: Document 01/12/24 09:34 LRN (Rec: 01/12/24 10:46 LRN [id number]) Therapeutic Exercises Supine Exercises Happy Baby pose Supine Exercise Name Happy Baby Pose Reps/Minutes 3' Comments Cuing to breath through stretch. Manual Therapy Treatment Soft Tissue Mobilization Vagus nerve Body Location Bilateral sides Mobilization Type Sustained Pressure,Trigger Point Release Intensity/Depth sup to mod Body Position Supine Abdomen Body Location Lift of lower PF and TrP release under R lower ribs Mobilization Type Myofascial Release,Sustained Pressure,Trigger Point Release Intensity/Depth Moderate Body Position Supine legs on bolster PT-OP-T Assessment and Plan Start: 08/07/23 17:58 Freq: Status: Active Protocol: Document 01/12/24 09:34 LRN (Rec: 01/12/24 10:46 LRN [id number]) Physical Therapy Assessment Goals Decreased PF strength & endurance Impairment Decreased PF strength (2-3/5) and endurance (2 sec hold) Short Term Goal (STG) Improve PF strength to 3/5 10/13/23: PF strength is 3/5 today except at posterior PF and R lateral wall at 6-8 of PF clock. Her PF strength is variable based on tightness. : PF strength 3/5. STG Duration (12/25/23: MET GOAL) Retirement Goal (LTG) Improve PF endurance to hold 10 secs before fatigue and pt able to relax the PF after contraction. 10/13/23: Holds 3 secs prior to fatigue at a lower intensity to avoid lower abdominal pain. 12/25/23: Endurance hold is 10 secs but pt is not able to relax the PF after contraction w/o doing a reverse Kegel. LTG Duration 13 wks-03/29/24 progressing 12/25/23 Three Impairment Stress urinary incontinence with lifting and sneezing. Short Term Goal (STG) Pt will be educated in core pressure management with transfers, ADLs, and exercise. 08/27/23: Pt educated in core pressure management w/ transfers. 09/03/23: Pt educated in core pressure management with ADLs, and exercise. STG Duration (09/03/23: MET GOAL) Retirement Goal (LTG) Pt will be able to maintain urinary continence with lifting and sneezing. LTG Duration 13 wks-03/29/24 Two Impairment Urge urinary incontinence in the presence of a strong urge. Short Term Goal (STG) Pt will be educated in urge deference technique, proper fluid management (including hydration level norms) and bladder irritants. STG Duration (08/21/23: MET GOAL) Interpretative Dancer Goal (LTG) Pt will be able to maintain urinary continence in the presence of a strong urge. 09/03/23: At work is leaking, at home able to use delay technique to prevent urinary leakage. 12/25/23: Leaking a little with urgency. When gets the urgency, the urination time is 8-10 sec. mostly leakage with jumping, sneezing squatting/bending over. 01/12/24: Can squat w/o leaking. LTG Duration 13 wks-03/29/24 progressing 01/12/24 One Impairment Pt lacks an independent self care HEP. Short Term Goal (STG) Pt will be educated in vulvar/ perineal care & proper posturing in sit/stand. Education: Vulvar/perineal care and proper sit posture. 10/05/23: Pt Educated in proper stand/sit posture & handout issued. STG Duration (10/05/23: MET GOAL) Interpretative Dancer Goal (LTG) Pt will be independent in a self care HEP for PF/hip strengthening, hip ROM. 08/21/23: HEP: Deep breathing, LE roll in/outs w/ breath/Kegel, progressing to add one component at a timel. 08/27/23: HEP: Deep Breathing, Happy Baby Pose. Handout issued for transfers w /breath/PF. 09/24/23: I/S pt to focus on hip ER stretch (L>R) and trunk rot stretch on L side. 11/03/23: I/S pt in Child's Pose and HEATHER stretch. Issue Sm Wand for self PF stretching . 12/21/23: I/S pt in self STM & trP release under most distal ribs. LTG Duration 13 wks-03/29/24 progressed Assessment Summary Assessment 23 yo female w/mixed urinary incontinence and urgency if not able to void quickly, abdominal pain with period; history of pelvic congestion. Today she presents with a greater loosening feeling of abdomen and with treatment, felt stretch to LB with abdominal traction. There was good mobilization of L vagus n, less to R due to time limitations. Physical Therapy Plan Frequency and Duration Frequency of Treatment 1x/Week Duration of treatment (weeks) 13 Plan of Care Start Date 12/25/23 Plan of Care End Date 03/29/24 Next Visit Focus/Plan Next Note Type Treatment Note Next Visit Plan See response to OBGYN appt @ 01/13/24. Next: Assess response to v nerve and mesenteric root mob; Treat for LE Lymph massage and ex and manual therapy ( below). End Vemg exercises. Manual therapy: vagus n, Abdomen-root of mesentery, anter/joss house keeper peritoneal wall; OI manual stretch, add LB manual STM, try kidney mob. Lumbar balancing. L hip stretching, mostly to be done at home: piriformis, AD's. Pt to try soaking in warm bath water for abdominal pain. Vemg ex Assess PF strength and tenderness/tightness. PF relaxation trng with inhale breaths and After PF TrP treatment, PF endurance strengthening (if relaxation can be obtained between contractions), End with PF EStim for relaxation training/EMG biofeedback of PF. Neuro thao: PF relaxation after 50-90% PF contraction max and with Vemg exercises coordinating PF relaxation with breath after contraction. Exer: Aggrevator training ( lifting and sneezing). POC: Pt education, Manual therapy. ? Biofeedback with vaginal sensor. Therapeutic Exercises, Therapeutic Activities, Neuromuscular Reeducation. LE lymphatic massage and ex is ok if needed for swelling per discussion with Oralia Branch, PT, lymphatic specialist to improve PF circulation ( compression bandaging in area if arterial problem is not recommended).
--- NOTE | 2024-02-22 17:35 | PT-OP ANOTE ---
Per phone, pt states because of work, was not able to take openings offered on waitlist due to other appointments already scheduled. Pt states she has decided not to have surgery, but will reconsider after having kids as she is hoping to have. States she has gone on vacation since last appt and [place] and thought she might have a flare up with all the standing/walking but was able to do stretches she knows and did not have a flare up. States her flare ups are hit and miss. Pt will try to get in if any cancels on PT return.
--- NOTE | 2024-04-18 08:57 | PT.OPDS ---
Current Diagnoses Muscle weakness (generalized) (01/12/24) Lower abdominal pain, unspecified (01/12/24) Unspecified urinary incontinence (01/12/24) Visit Care Team Role Provider Type Vanesa Philip MD Attending Provider Non-Staff Family Provider Primary Care Provider Referring Provider Specialty: Medical Address: [address] [place] [address], [phone] Email: Visit Number Visit Number 11/12 Discharge Summary PT-OP-B Current Condition Start: 08/07/23 17:58 Freq: Status: Active Protocol: Document 08/11/23 08:21 LRN (Rec: 08/11/23 09:46 LRN [id number]) Current Condition History of Current Condition Onset Date 06/2023 Current Complaints Urinary leakage if holding too long or doing light lifting mvmt, sneezing. History of Current Condition Sudden onset of urinary leakage, thought it was related to PF congestion, but was told there was no association. Pt has history of frequent UTI's until being given antibiotics as needed. She has not had UTI's with use of antibiotics. Pt states she is waiting for surgery at for her PF congestion. Orginally from [place], has spouse. Prior Treatments and Tests Dye test for reason for urinary tract infection (? intravenour pylegram) -2 yrs ago. Dye test for pelvic congestion (?venogram). Developmental History Developmental History Pt reports: Has pelvic congestion and is waiting for surgery; UTI's frequent 1x/month until started taking antibiotics, has not had infections. States infections after intercourse if not showering when camping. Treatment Goals Patient/Caregiver Goals Pt goal is: to be able to not have urgency , to not have urinary leakage with urgency to not have urinary leakage with lifting and sneezing. 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 PT-OP-C Subjective Start: 08/07/23 17:58 Freq: Status: Active Protocol: Document 04/18/24 08:44 LRN (Rec: 04/18/24 08:56 LRN [id number]) OP-PT Subjective Patient Comments Patient Comments Per phone, pt condition is same. Pt understands and is agreeable to DC from PT. PT-OP-I Pelvic Floor Start: 08/07/23 17:58 Freq: Status: Active Protocol: Document 12/25/23 13:05 LRN (Rec: 12/25/23 13:51 LRN [id number]) Pelvic Floor Assessment Pelvic Clock Pelvic Clock 12-3 Hypertonic,Tenderness, Tightness Pelvic Clock 3-6 Tenderness,Tightness Pelvic Clock 6-9 Tenderness,Tightness Pelvic Clock 9-12 Tenderness,Tightness Pelvic Clock Other Tender more at 3, 6 and 7. Contraction Ability Voluntary Contraction Moderate Voluntary Relaxation Absent Manual Muscle Testing Left 3 Manual Muscle Testing Right 3 Manual Muscle Testing Anterior 3 Manual Muscle Testing Posterior 3 Muscle Endurance (Seconds) 3 Number of Quick Contractions In 10 7 Seconds PT-OP-J Posture/Palpation/Skin Start: 08/07/23 17:58 Freq: Status: Active Protocol: Document 08/11/23 08:21 LRN (Rec: 08/11/23 09:46 LRN [id number]) Posture Evaluation Position Standing Head/C-Spine Posture Neutral Position L-Spine Posture Increased Lordosis Shoulder Posture (L) Elevated Pelvis Posture Anteriorly Tilted Weight Distribution Balanced Knee Posture (L) Genu Valgus,(R) Genu Valgus Comments Posture Comments Decreased thoracic curvature. L PSIS is posterior. PT-OP-K Range of Motion Start: 08/07/23 17:58 Freq: Status: Active Protocol: Document 09/24/23 13:03 LRN (Rec: 09/24/23 13:57 LRN [id number]) Hip Goniometric Range of Motion Hip Right Passive Testing Position Supine Internal Rotation 60 External Rotation 75 Left Passive Testing Position Supine Internal Rotation 50 External Rotation 65 PT-OP-M Strength Start: 08/07/23 17:58 Freq: Status: Active Protocol: Document 08/11/23 08:21 LRN (Rec: 08/11/23 09:46 LRN [id number]) Trunk Strength Trunk Manual Muscle Testing Core Stabilization Pt is not able to maintain core stability with MMT of LE' s. Hip Strength Hip Manual Muscle Testing Right Flexion (L2) 5 Normal Extension (S1) 3 Fair Abduction 4- Good- Adduction 3 Fair External Rotation 3+ Fair+ Internal Rotation 4 Good Left Flexion (L2) 5 Normal Extension (S1) 3 Fair Abduction 3 Fair Adduction 3 Fair External Rotation 5 Normal Internal Rotation 5 Normal PT-OP-T Assessment and Plan Start: 08/07/23 17:58 Freq: Status: Active Protocol: Document 04/18/24 08:44 LRN (Rec: 04/18/24 08:56 LRN [id number]) Physical Therapy Assessment Goals Decreased PF strength & endurance Impairment Decreased PF strength (2-3/5) and endurance (2 sec hold) Short Term Goal (STG) Improve PF strength to 3/5 10/13/23: PF strength is 3/5 today except at posterior PF and R lateral wall at 6-8 of PF clock. Her PF strength is variable based on tightness. : PF strength 3/5. STG Duration (12/25/23: MET GOAL) Longterm Goal (LTG) Improve PF endurance to hold 10 secs before fatigue and pt able to relax the PF after contraction. 10/13/23: Holds 3 secs prior to fatigue at a lower intensity to avoid lower abdominal pain. 12/25/23: Endurance hold is 10 secs but pt is not able to relax the PF after contraction w/o doing a reverse Kegel. LTG Duration 13 wks-03/29/24 (04/18/24: Pt unavailable for final assessment) Three Impairment Stress urinary incontinence with lifting and sneezing. Short Term Goal (STG) Pt will be educated in core pressure management with transfers, ADLs, and exercise. 08/27/23: Pt educated in core pressure management w/ transfers. 09/03/23: Pt educated in core pressure management with ADLs, and exercise. STG Duration (09/03/23: MET GOAL) Longterm Goal (LTG) Pt will be able to maintain urinary continence with lifting and sneezing. LTG Duration 13 wks-03/29/24 (04/18/24: Pt unavailable for final assessment) Two Impairment Urge urinary incontinence in the presence of a strong urge. Short Term Goal (STG) Pt will be educated in urge deference technique, proper fluid management (including hydration level norms) and bladder irritants. STG Duration (08/21/23: MET GOAL) Folder Operator Goal (LTG) Pt will be able to maintain urinary continence in the presence of a strong urge. 09/03/23: At work is leaking, at home able to use delay technique to prevent urinary leakage. 12/25/23: Leaking a little with urgency. When gets the urgency, the urination time is 8-10 sec. mostly leakage with jumping, sneezing squatting/bending over. 01/12/24: Can squat w/o leaking. LTG Duration 13 wks-03/29/24 (04/18/24: Pt unavailable for final assessment) One Impairment Pt lacks an independent self care HEP. Short Term Goal (STG) Pt will be educated in vulvar/ perineal care & proper posturing in sit/stand. Education: Vulvar/perineal care and proper sit posture. 10/05/23: Pt Educated in proper stand/sit posture & handout issued. STG Duration (10/05/23: MET GOAL) Folder Operator Goal (LTG) Pt will be independent in a self care HEP for PF/hip strengthening, hip ROM. 08/21/23: HEP: Deep breathing, LE roll in/outs w/ breath/Kegel, progressing to add one component at a timel. 08/27/23: HEP: Deep Breathing, Happy Baby Pose. Handout issued for transfers w /breath/PF. 09/24/23: I/S pt to focus on hip ER stretch (L>R) and trunk rot stretch on L side. 11/03/23: I/S pt in Child's Pose and HEATHER stretch. Issue Sm Wand for self PF stretching . 12/21/23: I/S pt in self STM & trP release under most distal ribs. LTG Duration 13 wks-03/29/24 (04/18/24: Goal Partially met, program not completed) Assessment Summary Assessment Pt is a 24 yo female w/mixed urinary incontinence and urgency if not able to void quickly, abdominal pain with period; history of pelvic congestion. The pt was last seen 01/12/24, due to scheduling difficulties, and her plan of care has now . The pt did have some improvement in her pain and improved PF strength (although was still working on relaxation of her PF), but pain onset remained the same during her period, but pt has a HEP that helps her manage her pain. No further therapy is planned; pt is being discharged from physical therapy with pt understanding and agreement. Physical Therapy Plan Discharge Physical Therapy Discharge Comments I would be happy to work with this pleasant individual again if needed. Thank you for your referral.
== END 2024-04-19 14:44 | disposition home or self-care (01) ==
LOC: PHYS 09:45
PROVIDERS: Family Provider Student in an Organized Health Care Education/Training Program; PCP Student in an Organized Health Care Education/Training Program; Referring Provider Student in an Organized Health Care Education/Training Program; Visit Provider Student in an Organized Health Care Education/Training Program
DX: R32 Unspecified urinary incontinence (principal); M62.81 Muscle weakness (generalized); R10.30 Lower abdominal pain, unspecified
CPT/HCPCS: 97110; 97112; 97140; 97161; 97530; 97535